=== PATIENT | female | born 1970 | race Hispanic/Latino ===

== ENCOUNTER 2019-12-17 15:06 | Outpatient (CLI) | payer OTHER, SELFPAY ==
--- NOTE | ~2019-12-17 | XR_ITS ---
XR cervical spine min 6V 12/17/2019 15:49 Indication: Cervicalgia. Chronic neck pain with worsening Procedure: 6 views of the cervical spine Comparison: No prior studies for comparison. Findings: Straightening of cervical lordosis. Vertebral body and disc heights are preserved. No preve rtebral soft tissue swelling. There are mild uncinate degenerative changes at multiple levels. Odonto id process within normal limits. No prevertebral soft tissue abnormality. No fracture or traumatic ma lalignment. Impression: 1: Mild cervical spondylosis. Reviewed, dictated and finalized at location A. LOADER MEAT Impression: 1: Mild cervical spondylosis.
== END 2019-12-17 15:07 | disposition home or self-care (01) ==
PROVIDERS: PCP Nurse Practitioner; Visit Provider Nurse Practitioner Family
DX: M47.892 Other spondylosis, cervical region (principal)
CPT/HCPCS: 72052

== ENCOUNTER 2021-06-22 12:14 | Outpatient (CLI) | payer OTHER, SELFPAY ==
--- NOTE | ~2021-06-22 | MR_ITS ---
EXAMINATION: MR cervical spine wo con DATE: 06/22/2021 13:45 INDICATION: Cervical radiculopathy. TECHNIQUE: Magnetic resonance imaging (MRI) of the cervical spine was performed without intravenous c ontrast. Sequences included sagittal T2-weighted FSE, sagittal STIR FSE, sagittal T1-weighted FSE, ax ial MERGE, and axial T2-weighted FSE. COMPARISON: None FINDINGS: There is 21 degrees levoscoliosis of cervicothoracic spine. Vertebral body heights are norm al. There is mildly decreased disc height at C4-C5 and moderately decreased disc height at C5-C6. The spinal cord signal intensity is normal. The following disc levels are specifically discussed: C2-C3: The disc does not extend beyond the endplate margin. There is no uncovertebral joint osteoarth ritis. There is severe bilateral facet joint osteoarthritis. There is no neural foraminal stenosis. T here is no central canal stenosis. C3-C4: The disc does not extend beyond the endplate margin. There is no uncovertebral joint osteoarth ritis. There is severe bilateral facet joint osteoarthritis. There is no neural foraminal stenosis. T here is no central canal stenosis. C4-C5: There is a central extrusion. There is mild right and moderate left uncovertebral joint osteoa rthritis. There is moderate right and severe left facet joint osteoarthritis. There is mild bilateral neural foraminal stenosis. There is mild central canal stenosis. C5-C6: There is a central extrusion. There is mild bilateral uncovertebral joint osteoarthritis. Ther e is severe bilateral facet joint osteoarthritis. There is mild bilateral neural foraminal stenosis. There is mild central canal stenosis with ventral indentation of the spinal cord. C6-C7: The disc does not extend beyond the endplate margin. There is mild left uncovertebral joint os teoarthritis. There is severe bilateral facet joint osteoarthritis. There is mild bilateral neural fo raminal stenosis. There is no central canal stenosis. C7-T1: There is a central protrusion. There is no uncovertebral joint osteoarthritis. There is modera te bilateral facet joint osteoarthritis. There is mild bilateral neural foraminal stenosis. There is no central canal stenosis. IMPRESSION: 1. Moderate cervical spondylosis. 2. Cervicothoracic levoscoliosis. Reviewed, dictated and finalized at location A.
--- NOTE | ~2021-06-22 | MR_ITS ---
EXAMINATION: MR lumbar spine wo con DATE: 06/22/2021 13:45 INDICATION: Lumbago. TECHNIQUE: Magnetic resonance imaging (MRI) of the lumbar spine was performed without intravenous con trast. Sequences included sagittal T2-weighted FSE, sagittal STIR FSE, sagittal T1-weighted FSE, and axial T2-weighted FSE. COMPARISON: Lumbar spine MRI 09/17/2019 FINDINGS: There is 23 degrees levoscoliosis of thoracolumbar spine. There are changes of anterior and posterior fusion procedures at L5-S1 with interbody devices and pedicle screws. Vertebral body heigh ts are normal. There is mildly decreased disc height at L2-L3 and L3-L4. The distal spinal cord signa l intensity is normal. The conus medullaris is at T12-L1. The following disc levels are specifically discussed: L1-L2: The disc does not extend beyond the endplate margin. There is severe bilateral facet joint ost eoarthritis. There is no neural foraminal stenosis. There is no central canal stenosis. L2-L3: The disc is bulging. There is severe bilateral facet joint osteoarthritis. There is mild bilat eral neural foraminal stenosis. There is mild central canal stenosis. L3-L4: The disc is bulging. There is severe bilateral facet joint osteoarthritis. There is mild bilat eral neural foraminal stenosis. There is mild central canal stenosis. L4-L5: There is a left foraminal protrusion. There is moderate bilateral facet joint hypertrophy. The re is mild left neural foraminal stenosis. There is no central canal stenosis. L5-S1: There is moderate left facet joint hypertrophy. There is mild left neural foraminal stenosis. There is no central canal stenosis. IMPRESSION: 1. Mild lumbar spondylosis, stable from 09/17/2019. 2. Anterior and posterior fusion procedures at L5-S1. 3. Thoracolumbar levoscoliosis. Reviewed, dictated and finalized at location A.
--- NOTE | ~2021-06-22 | MR_ITS ---
EXAMINATION: MR thoracic spine wo con DATE: 06/22/2021 13:45 INDICATION: Back pain. Neck pain. TECHNIQUE: Magnetic resonance imaging (MRI) of the thoracic spine was performed without intravenous c ontrast. Sagittal localizer T1-weighted FSE of the cervical spine was obtained. Thoracic spine sequen nellie included sagittal T2-weighted FSE, sagittal T1-weighted FSE, sagittal STIR FSE, and axial T2-weig hted FSE. COMPARISON: Thoracic spine MRI 12/10/2018 FINDINGS: There is 27 degrees dextroscoliosis of thoracic spine. There is levoscoliosis of cervicotho racic spine and thoracolumbar spine. Vertebral body heights are normal. There is mildly decreased dis c height at T3-T4, T4-T5, T6-T7, T7-T8, T8-T9, and T9-T10. The discs do not extend beyond the endplat e margins. There is multilevel mild facet joint osteoarthritis. No neural foraminal stenosis or centr al canal stenosis. The spinal cord signal intensity is normal. IMPRESSION: 1. Stable mild thoracic spondylosis. 2. Scoliosis. Reviewed, dictated and finalized at location A.
== END 2021-06-22 12:15 ==
LOC: MICIMG 12:15
PROVIDERS: PCP Nurse Practitioner; Visit Provider Nurse Practitioner Family
DX: M47.814 Spondylosis without myelopathy or radiculopathy, thoracic region (principal); M41.9 Scoliosis, unspecified; M47.817 Spondylosis without myelopathy or radiculopathy, lumbosacral region; M48.07 Spinal stenosis, lumbosacral region; Z98.1 Arthrodesis status; M47.813 Spondylosis without myelopathy or radiculopathy, cervicothoracic region; M48.03 Spinal stenosis, cervicothoracic region
CPT/HCPCS: 72141; 72146; 72148

== ENCOUNTER 2021-10-02 01:14 | Emergency (ER) | payer OTHER, SELFPAY ==
[2021-10-02] VITALS (19 sets, daily range): BP systolic 92–188; BP diastolic 48–107; PULSE 43–64; RESP 8–22; TEMP 36.6; O2SAT 95–100
--- NOTE | ~2021-10-02 | XR_ITS ---
EXAMINATION: XR chest 2V DATE: 10/02/2021 02:07 INDICATION: Midsternal chest pain TECHNIQUE: AP and lateral views of the chest are obtained. COMPARISON: 09/15/2019 FINDINGS: The lungs are free of acute opacities. There is no pleural effusion or pneumothorax. The ca rdiomediastinal silhouette is normal. There is S-shaped curvature of the thoracic spine. IMPRESSION: 1. No acute cardiopulmonary abnormality. Reviewed, dictated and finalized at location A. TER HAND
--- NOTE | ~2021-10-02 | CT_ITS ---
EXAMINATION: CT abdomen pelvis w con INDICATION: Epigastric abdominal pain TECHNIQUE: Computed tomographic images of the abdomen and pelvis were obtained after the administrati on of 100 cc of Omnipaque 350 intravenous contrast. The dose-length product (DLP) was 657.17 mGy-cm. Automated exposure control and iterative reconstruction technique were employed. COMPARISON: None available FINDINGS: Minimal dependent atelectasis is present in the lung bases. The heart size is normal. The l iver, spleen, pancreas, and adrenal glands are normal. There appears to be mild wall thickening of th e gallbladder with subtle pericholecystic fat stranding. Hypoattenuating lesions in the kidneys, obey uring up to 2 mm on the right, are too small to characterize but likely represent cysts. No pathologi ale enlarged abdominal or pelvic lymph nodes are identified. There is no free intraperitoneal gas o r evidence of bowel obstruction. The appendix is normal. Colonic diverticulosis is present without ev idence of diverticulitis. There is a fat-containing umbilical hernia. There are changes of fusion pro cedure at L5-S1. Thoracolumbar levoscoliosis is noted. IMPRESSION: 1. CT findings suggestive of early cholecystitis. Reviewed, dictated and finalized at location A. LE END TENONER OPERATOR
--- NOTE | 2021-10-02 01:22 | ECG_ITS ---
Measurements Intervals [place] Rate: 57 P: 32 VT: 187 QRS: 76 QRSD: 89 T: 71 QT: 407 QTc: 399 Interpretive Statements SINUS BRADYCARDIA BASELINE ARTIFACT- II, III, AVR, AVF, V1, V3-V6 BORDERLINE ECG Electronically Signed On 10-02-2021 7:15:45 RESIDENT BUYER by Cornell Vasquez D.O.
[2021-10-02] MEDS: ONDANSETRON INJ 4 MG/2 ML VIAL IV PUSH (01:38)
[2021-10-02 01:39] LABS: Basophils Percent Auto 0.4 % (0.2-1.2); Eosinophils Absolute Auto 0.2 K/mm3 (0-0.3); Eosinophils Percent Auto 2.8 % (0-4.4); Hematocrit 42.6 % (37.0-47.0); Hemoglobin 14.3 g/dL (12.0-15.0); Immature Granulocyte Absolute 0.02 K/mm3 (0.00-0.031); Immature Granulocyte Percent A 0.3 % (0-0.5); Lymphocytes Absolute Auto 3.02 K/mm3 (0.9-3.2); Mean Corpuscular HGB Conc 33.6 g/dl (32-36); Mean Corpuscular Hemoglobin 29.5 pg (26-34); Mean Platelet Volume 10.5 fl (7.4-10.4); Monocytes Absolute Auto 0.7 K/mm3 (0.1-0.6); Monocytes Percent Auto 9.6 % (2.6-8.5); Neutrophils Absolute Auto 3.2 K/mm3 (1.3-6.7); Neutrophils Percent Auto 44.9 % (45.5-73.1); Platelet Count Result 272 k/mm3 (150-375); Red Blood Count 4.84 M/mm3 (4.2-5.4); Red Cell Distribution Width 12.3 % (11.5-14.5); White Blood Count 7.2 K/mm3 (4.5-10.0)
[2021-10-02] MEDS: MORPHINE SULFATE (*CRX) 4 MG/ML INJ IV PUSH (01:39)
[2021-10-02] MEDS: ASPIRIN 81 MG CHEWABLE TABLET 324 MG PO (01:42)
[2021-10-02 01:49] LABS: Anion Gap 7 mmol/L (8-16); Blood Urea Nitrogen 20 mg/dL (7-17); Calcium 9.9 mg/dL (8.4-10.2); Carbon Dioxide 30 mmol/L (22-30); Chloride 101 mmol/L (98-107); Estimated CRCL calculation 83 ml/min; Estimated Glomerular Filt Rate > 60; Glucose 111 mg/dL (65-110); Potassium 3.9 mmol/L (3.4-5.0); Sodium 138 mmol/L (137-145)
[2021-10-02 01:51] LABS: INR 0.9; Partial Thromboplastin Time 26.4 SECONDS (22.3-36.8); Prothrombin Time 12.1 Seconds (11.1-14.7)
--- NOTE | 2021-10-02 01:59 | ED.GENADULT ---
HPI - General Adult General Chief complaint: Chest Pain Stated complaint: chest pain x 1 hour Time Seen by Provider: 10/02/21 01:23 History of Present Illness HPI narrative: Patient 50-year-old female presents the emergency department with chief complaint of chest pain. Patient reports that she was sleeping woke up and had pain in the low chest epigastric region. Patient reports the pain is sharp reports not improved by anything reports no diaphoresis reports radiates to her back patient denies shortness of breath reports that this evening she ate some chicken reports no prior history of cardiac disease reports she had a stress test about 5 years ago the patient states that she still has her gallbladder. Related Data Home Medications Medication Instructions Recorded Confirmed naltrexone 50 mg tablet See Rx Instructions PO DAILY 08/25/21 10/02/21 Allergies Allergy/AdvReac Type Severity Reaction Status Date / Time No Known Allergies Allergy Unknown Verified 10/02/21 05:31 Review of Systems Review of Systems: A 10 system review of systems was completed on the patient and is negative except for what is stated in the HPI. Nursing and ancillary documentation was reviewed. [facility] Past Medical History Medical History ADD (attention deficit disorder) Anxiety Intermittent palpitations Scoliosis of thoracolumbar region due to degenerative disease of spine in adult Surgical History Surgical History History of hysterectomy History of lumbar fusion Hx of laminectomy Family History Family History Father Hypertension Heart disease Mother Hypertension Heart disease Social History Social History Smoking status: Never smoker Smoking end date: 11/19/05 Alcohol intake: never Exam Narrative: GENERAL: Well-appearing, well-nourished, and in no acute distress. HEAD: Normocephalic, atraumatic. EYES: PERRLA and EOMI. ENT: Nares clear, no rhinorrhea or epistaxis. Mucous membranes moist. NECK: Supple. CHEST: Clear to auscultation. No respiratory distress. HEART: Regular rate and rhythm. No murmur heard. Normal peripheral pulses. ABDOMEN: Soft, tender to palpation in the epigastric region, nondistended, normal active bowel sounds. EXTREMITIES: Normal range of motion. No edema. SKIN: Warm, dry, no rash. NEURO: No focal deficits. Alert and oriented x3. PSYCH: Normal mood and affect. Course Vital Signs Vital signs: Vital Signs Temperature 36.6 C 10/02/21 01:23 Pulse Rate 64 10/02/21 01:23 Respiratory Rate 20 10/02/21 01:23 Blood Pressure 188/88 H 10/02/21 01:23 Pulse Oximetry 100 10/02/21 01:23 Temperature 36.6 C 10/02/21 01:23 Pulse Rate 43 L 10/02/21 04:15 Respiratory Rate 11 L 10/02/21 04:15 Blood Pressure 92/48 L 10/02/21 03:01 Pulse Oximetry 97 10/02/21 04:15 Medical Decision Making Vital Signs Vital Signs: Vital Signs Temperature 36.6 C 10/02/21 01:23 Pulse Rate 64 10/02/21 01:23 Respiratory Rate 20 10/02/21 01:23 Blood Pressure 188/88 H 10/02/21 01:23 Pulse Oximetry 100 10/02/21 01:23 Temperature 36.6 C 10/02/21 01:23 Pulse Rate 43 L 10/02/21 04:15 Respiratory Rate 11 L 10/02/21 04:15 Blood Pressure 92/48 L 10/02/21 03:01 Pulse Oximetry 97 10/02/21 04:15 Lab Data Result diagrams: 10/02/21 01:34 10/02/21 01:34 Labs: Lab Results 10/02/21 10/02/21 10/02/21 Range/Units 01:33 01:34 01:34 WBC 7.2 (4.5-10.0) K/mm3 RBC 4.84 (4.2-5.4) M/mm3 Hgb 14.3 (12.0-15.0) g/dL Hct 42.6 (37.0-47.0) % MCV 88.0 (80-100) fl MCH 29.5 (26-34) pg MCHC 33.6 (32-36) g/dl RDW 12.3 (11.5-14.5) % Plt Count 272 (150-375) k/mm3
[2021-10-02 02:01] LABS: Troponin I < 0.012 ng/mL (0.000-0.034)
[2021-10-02] MEDS: HYDROmorphone HCL INJ (*CRX) 1 MG/ML SYR IV PUSH (02:13)
[2021-10-02 03:01] LABS: Alanine Aminotransferase 28 U/L (4-35); Albumin Level 4.6 g/dL (3.5-5.1); Alkaline Phosphatase 55 U/L (38-126); Aspartate Amino Transferase 28 U/L (14-36); Bilirubin,Total 0.3 mg/dL (0.2-1.3); Lipase 186 U/L (23-300)
[2021-10-02 04:44] LABS: Troponin I < 0.012 ng/mL (0.000-0.034)
== END 2021-10-02 06:14 | disposition home or self-care (01) ==
PROVIDERS: Emergency Provider Emergency Medicine; PCP Internal Medicine
DX: K80.40 Calculus of bile duct with cholecystitis, unspecified, without obstruction (principal); R07.89 Other chest pain; F41.9 Anxiety disorder, unspecified; Z90.710 Acquired absence of both cervix and uterus; Z98.1 Arthrodesis status
CPT/HCPCS: 36415; 71046; 74177; 76705; 80048; 80076; 83690; 84484; 85025; 85610; 85730; 93005; 96374; 96375; 99284; A9270; J1170; J2270; J2405; Q9967

== ENCOUNTER 2021-10-02 07:31 | Outpatient (CLI) | payer OTHER, SELFPAY ==
--- NOTE | ~2021-10-02 | US_ITS ---
EXAMINATION: US right upper quadrant DATE: 10/02/2021 07:59 INDICATION: Right upper quadrant pain, cholecystitis TECHNIQUE: Multiple grayscale and Doppler ultrasound images of the abdomen were obtained. COMPARISON: CT from yesterday FINDINGS: The head, body, and tail of the pancreas are normal. The liver is normal with normal echoge nicity and echotexture. No surface nodularity. Normal hepatopetal flow in the main portal vein. Una lithiasis is noted. Mild gallbladder wall thickening is noted. No definite pericholecystic fluid is i dentified. The normal common bile duct measures 6 mm. Sonographic Jackson sign is positive. IMPRESSION: 1. Sonographic findings suspicious for acute cholecystitis. Consider nuclear hepatobiliary scan. Reviewed, dictated and finalized at location A. STANT CHIEF NURSING OFFICER IMPRESSION: 1. Sonographic findings suspicious for acute cholecystitis. Consider nuclear he patobiliary scan.
== END 2021-10-02 07:32 | disposition home or self-care (01) ==
LOC: ANHIMG 07:34
PROVIDERS: PCP Internal Medicine; Visit Provider Surgery
DX: K81.0 Acute cholecystitis (principal)
CPT/HCPCS: 76705

== ENCOUNTER 2021-10-03 12:18 | Outpatient (CLI) | payer OTHER, SELFPAY ==
[2021-10-03 12:44] LABS: EDCOVIDSCREEN Negative (Negative)
== END 2021-10-03 12:19 | disposition home or self-care (01) ==
LOC: ANHSURGERY 12:20
PROVIDERS: PCP Internal Medicine; Visit Provider Surgery
DX: Z01.812 Encounter for preprocedural laboratory examination (principal); Z20.822 Contact with and (suspected) exposure to COVID-19
CPT/HCPCS: 87426; C9803

== ENCOUNTER 2021-10-04 01:53 | Day surgery (SDC) | payer OTHER, SELFPAY ==
[2021-10-03 13:26] VITALS: BMI 28.3
--- NOTE | 2021-10-03 13:39 | PC.NURSE ---
Report to the Outpatient Waiting Room, entrance under the green pavilion located off [facility], at time 1030 on date 10/04/21. OR Time: 1230. - You and your visitor will be asked a series of questions to screen for COVID 19 for your protection. - A mask is required within the hospital. - Only one visitor is allowed at this time. Patient visitors will be guided where to wait when not with patient. Preoperative COVID Testing Requirements: No COVID Test needed if: (proof is required; if not received patient will have Rapid Test prior to entry) - Patient has received COVID Vaccine at least 14 days prior to procedure date or - Patient has positive COVID test result within last 90 days of surgery date. COVID Test needed if above criteria is not met If not COVID vaccinated a COVID test must be conducted within 72 hours of surgery and patient is asked to isolate self from time of testing until procedure. You will go to the [employer] [facility] for your COVID testing. The [employer] [facility] is located at the corner of [address] [facility]. You will only be called if COVID results are positive and your surgeon may reschedule your elective surgery date. Patients may have clear liquids (water, carbonated beverages, clear teas, apple juice) until 3 hours prior to surgery with a maximum of 20 ounces. - No food from midnight until time of surgery - Infants may have breast milk until 4 hours before surgery, formula 6 hours prior to surgery. - Children will be allowed to drink immediately following surgery. If applicable, please bring a bottle or sippy cup to assist with drinking. Juice, water, soda, and popsicles are readily available. For infants on formula, please bring formula the day of surgery. Pacifiers are allowed. Take the following medications with a SIP of water the morning of surgery: XANAX (IF NEEDED), PAIN PILL (IF NEEDED), CIPRO, ADDERALL, WELLBUTRIN Medications to discontinue per physician: IBUPROFEN Date to take last dose: PER DR. GAITAN Please no make-up, nail cayman islander, hairspray, perfume, deodorant, or body powder the day of surgery. No jewelry (including any body piercings) or valuables the day of surgery, leave them at home. Please take a shower or bath the night before, or the morning of, surgery with an antibacterial soap. Wear comfortable, loose fitting clothing. Children are encouraged to wear pajamas. - Jewelry must be removed prior to entering the operating room. Rings and piercings that are not removed may be cut off. - The hospital will not accept responsibility for valuables. - Please leave all valuables, including medications, at home the day of surgery. If you are going home after surgery, a licensed commercial driver must drive you home. - NO public transportation without another adult. - We recommend that an adult stay with you for 24 hours following discharge. - We also recommend that you do not drive, make important decision, drink alcoholic beverages, or take any drugs that were not prescribed by your health care provider for at least 24 hours after your discharge time. For Pediatric surgeries, we recommend two adults accompany the child home (only one inside the building at this time). Follow any additional instructions given to you from your surgeon. Telephone instructions given to JOSSUE MERAZ and asked if any additional questions and then verbalized understanding. Patient advised to call surgeon office or pre surgery nurse liaison [phone] if any additional questions.
[2021-10-04] VITALS (8 sets, daily range): BP systolic 124–170; BP diastolic 62–87; PULSE 61–82; RESP 12–18; TEMP 35.9–36.4; O2SAT 98–100
--- NOTE | 2021-10-04 11:09 | WPDANESEPPF ---
Anes - Initial Pre Proc Eval Procedure: Operation Date: 10/04/21 12:30 Proposed Procedures p Laparoscopic Cholecystectomy, Possible Intra Operative Cholangiogram, Possible Open - Emery Ordonez MD Date/Time: 10/04/21 11:09 Surgeon: Emery Ordonez MD Pre Op Diagnosis: chronic cholecystitis with cholelithiasis Patient Data Age: 50 Gender: F Height: 1.63 m Weight: 77 kg Allergies Allergy/AdvReac Type Severity Reaction Status Date / Time No Known Allergies Allergy Unknown Verified 10/04/21 11:07 Home Medications Medication Instructions Recorded Confirmed Type cyclobenzaprine 10 mg tablet 10 mg PO .QD PRN #30 tablet 06/14/20 10/04/21 Rx bupropion HCl 100 mg tablet,12 hr See Rx Instructions PO DAILY #360 03/22/21 10/04/21 Rx sustained-release tablet ibuprofen 800 mg tablet 800 mg PO .Q8-12h PRN #30 tablet 08/25/21 10/04/21 Rx alprazolam 0.5 mg tablet 0.5 mg PO DAILY PRN #30 tablet 09/13/21 10/04/21 Rx dextroamphetamine-amphetamine 15 15 mg PO BID #60 tablet 09/13/21 10/04/21 Rx mg tablet ciprofloxacin HCl 500 mg PO BID 10/03/21 10/04/21 History hydrocodone-acetaminophen 1 tablet PO Q6H PRN 10/03/21 10/04/21 History Patient hx anesthesia problems: none Family hx anesthesia problems: none Results Review: All pre-operative results and documents have been reviewed as part of the pre-operative evaluation. [facility] Past Medical History Medical History ADD (attention deficit disorder) Anxiety Intermittent palpitations Scoliosis of thoracolumbar region due to degenerative disease of spine in adult Surgical History Surgical History H/O discectomy H/O tubal ligation History of hysterectomy History of lumbar fusion Hx of laminectomy Family History Family History Father Hypertension Heart disease Cerebrovascular accident Mother Hypertension Heart disease COPD (chronic obstructive pulmonary disease) Social History Social History Smoking packs per day: 0.5 Smoking cigarettes per day: 10.0 Years smoked: 15 Smoking pack-years: 7.50 Smoking status: Former smoker Tobacco type: cigarettes Smoking end date: 11/19/06 Alcohol intake: current Drinks per week: 3 Substance use: never Substance use type: does not use Living arrangements: with family Spiritual care concerns: No Anes - Eval Final PreProcedure Day of Procedure 10/04/21 11:09 Patient weight: overweight Heart: regular rate and rhythm Lungs: clear to auscultation Airway: Mallampati scale class II (has braces) Neurological: alert and oriented Last oral intake: >/= 8 hours ASA classification: II Emergent: no Anesthetic plan: proceed Anesthesia type and monitoring: general ETT and standard monitoring Results Review: All pre-operative results and documents have been reviewed as part of the pre-operative evaluation. Informed Consent: The patient's anesthetic plan and its attendant risks and benefits were discussed with the patient/family/POA. Questions were solicited and answers provided to the satisfaction of the patient/family/POA.
[2021-10-04] MEDS: ACETAMINOPHEN 500 MG TABLET 1000 MG PO (11:14)
[2021-10-04] MEDS: LACTATED RINGERS 1,000 ML 30 ML IV CONT ×2 (11:27→13:48)
[2021-10-04] MEDS: KETOROLAC 15 MG/ML VIAL (*BKC) IV PUSH (11:28)
--- NOTE | 2021-10-04 11:57 | WPDHPUPDATE1 ---
History and Physical Update Update Date/Time: 10/04/21 11:57 History and Physical has been reviewed, including an updated exam of the patient. There are NO changes in the patient's condition. Risks, benefits, and alternatives have been discussed and questions answered. Patient agrees to proceed with procedure.
[2021-10-04 12:07] LABS: Amylase 60 U/L (30-110)
[2021-10-04] MEDS: ceFAZolin 2 GM/D5W 50 ML 2 GM/50 ML BAG IVPB (12:08)
[2021-10-04] MEDS: LIDO 2%/EPINEPHRINE 1:100,000 20 ML VIAL INFILTRATE (13:36)
--- NOTE | 2021-10-04 13:52 | W.PM.PROC2 ---
Procedure Note - Detailed Date of Procedure 10/04/21 Pre-op Diagnosis chronic cholecystitis with cholelithiasis (suspected acute exacerbation) Post-op Diagnosis same Procedure Performed Laproscopic Cholecystectomy Surgeon Emery Ordnoez MD Hazmat Tanker Driver Ragini [email or web address] temporary administrative assistant Anesthesia general Indications Patient risks sleep presented to the ED with new onset right upper quadrant abdominal pain. This radiated to her back. See H&P for further details. Ultrasound showed definite stones, therefore she was offered surgical intervention. Findings Definite significant adhesions that were of a chronic nature covering most the gallbladder. Definite palpable stones upon removal of the gallbladder. No apparent acute inflammation of the gallbladder that I can see. Description of Procedure Patient was seen preoperatively in the holding area and risks, benefits and alternatives confirmed. Patient was taken to the operating room and general anesthesia was induced. A time out was then preformed with the surgery team confirming patient and site of surgery. The abdomen was prepped and draped in the usual sterile fashion. Incision was made approximately 4 fingerbreadths below the costal margin in the left upper quadrant of the abdomen with an 11 blade knife. We placed the patient's head slightly up an OG tube was in place to low intermittent suction. Because of her previous surgery in the area of the umbilicus I decided to try a entry with a water drop test and a Veress needle. Placing 2 towel clips on the skin of this incision we elevated the skin and the abdomen and then using a 3 cc syringe I checked a water drop test through the Veress needle after popping it through the different layers of muscle in this area. Once there was good flow of the water down the needle without resistance, we connected the CO2 gas. This gradually went up fairly quickly to 12 mmHg so I pushed in one more and felt a slight pop and then our pressure dropped to 5 mm and the abdomen insufflated nicely. Once we were up to a 14 mm Hg pressure of CO2 gas, I removed the Veress needle and the gas and we placed the 5 mm trocar over the 0 degree 5 mm laparoscope, I then under direct vision quickly twisted and turned the port into the abdomen under direct vision and we popped into the pneumoperitoneum without difficulty. We then held the the port tight, removed the inner cannula/trocar and replaced the scope through this port. We were just barely into the fascia and we could see, so I rotated the port in better then we were at first and we connected this to 40 liters/minute flow of CO2 gas to therefore maintain the pneumoperitoneum. First under low flow and then under high flow the abdomen was insufflated with carbon dioxide never exceeding a pressure of 14. Two more 5 mm trocars and one standard 12 mm trocar were then introduced under direct vision. The following trocars were introduced under direct vision: a 12 mm in the periumbilical area just to the right of midline and two 5 mm trocars along the right costal margin laterally in the subcostal area. There were significant omental adhesions to the underside of the gallbladder. These were taken down with blunt and sharp dissection using some Bovie cautery for hemostasis. We were able to dissect this completely away from the neck of the gallbladder. I then carefully used the L-shaped cautery and the [place] dissector to dissect out the triangle of [place]. I then was able to dissect out both the cystic duct and cystic artery and identify a window of safety. The gall bladder was grasped and the cystic duct and artery were dissected free and clipped with an 5 mm endo-clip woodworking shop laborer. The cystic duct and artery were clipped with use of 2 clips on the patient's side 1 on the gallbladder side utilizing a 5 mm endoclip-woodworking shop laborer. The cystic duct was then transected. The cystic artery was also transected at this point. The gall bladder was removed using
== END 2021-10-04 15:33 | disposition home or self-care (01) ==
PROVIDERS: PCP Internal Medicine; Visit Provider Surgery
PROC: 0FT44ZZ Resection of Gallbladder, Percutaneous Endoscopic Approach (ICD-10-PCS; CPT 47562; principal; 2021-10-04 12:30)
DX: K80.10 Calculus of gallbladder with chronic cholecystitis without obstruction (principal); F98.8 Other specified behavioral and emotional disorders with onset usually occurring in childhood and adolescence; F41.9 Anxiety disorder, unspecified; Z87.891 Personal history of nicotine dependence
CPT/HCPCS: 47562; 36415; 82150; 87426; 88304; A9270; C9803; J0690; J1100; J1170; J1885; J2250; J2405; J2704; J2710; J3010; J7030; J7120; Q9966

== ENCOUNTER 2022-05-19 00:58 | Day surgery (SDC) | payer OTHER, SELFPAY ==
--- NOTE | 2022-05-13 11:51 | PM.IMHP ---
H&P: HPI History of Present Illness Date/Time: 05/13/22 11:51 Chief Complaint: Stress incontinence Narrative: bothersome stress incontinence. Presents for surgical treatment Review of Systems Review of Systems: All systems reviewed & are unremarkable except as noted in HPI and below PMFSH Past Medical History Medical History ADD (attention deficit disorder) Anxiety Intermittent palpitations Scoliosis of thoracolumbar region due to degenerative disease of spine in adult Surgical History Surgical History H/O discectomy H/O tubal ligation History of hysterectomy History of lumbar fusion Hx laparoscopic cholecystectomy 10/04/21 Hx of laminectomy Family History Family History Father Hypertension Heart disease Cerebrovascular accident Mother Hypertension Heart disease COPD (chronic obstructive pulmonary disease) Social History Social History Smoking packs per day: 0.5 Smoking cigarettes per day: 10.0 Years smoked: 15 Smoking pack-years: 7.50 Smoking status: Never smoker Tobacco type: cigarettes Smoking end date: 11/19/06 Alcohol intake: current Drinks per week: 3 Substance use: never Substance use type: does not use Gender identity (if verbalized by the patient): Female Sexual Orientation (if Verbalized by the Patient): Straight or Heterosexual Spiritual care concerns: No Meds Home Medications and Allergies Home Medications Medication Instructions Recorded Confirmed Type bupropion HCl 100 mg tablet,12 hr See Rx Instructions PO DAILY #360 03/22/21 04/11/22 Rx sustained-release tabs ibuprofen 800 mg tablet 800 mg PO .Q8-12h PRN fever or 12/08/21 04/11/22 Rx pain #30 tabs naltrexone 50 mg tablet 3 mg PO DAILY 12/08/21 04/11/22 History cyclobenzaprine 10 mg tablet 10 mg PO .QD PRN muscle spasm #30 12/26/21 04/11/22 Rx tabs alprazolam 0.5 mg tablet 0.5 mg PO DAILY PRN anxiety #30 01/30/22 04/11/22 Rx tabs dextroamphetamine-amphetamine 15 15 mg PO BID #60 tabs 05/01/22 Rx mg tablet Allergies Allergy/AdvReac Type Severity Reaction Status Date / Time No Known Allergies Allergy Unknown Verified 04/11/22 08:39 Exam Narrative: alert and oriented x3 normal breathing urethral hypermobility noted Assessment and Plan Assessment and plan (1) CHRISTEN (stress urinary incontinence, female): Code(s): N39.3 - Stress incontinence (female) (male) Status: Acute Assessment and Plan: urethral sling. Understands risks of bleeding, infection, damage surrounding organs, damage to the urine tract, lack of efficacy, voiding dysfunction including incontinence and retention, mesh exposure, need for repeat procedures. She agrees to proceed
[2022-05-16 15:11] VITALS: BMI 29.2
--- NOTE | 2022-05-16 15:19 | SUR.PREOP ---
Report to the Outpatient Waiting Room, entrance under the green pavilion located off [facility], at time 0600_ on date 05/19/22 OR Time: _0730 . - You and your visitor will be asked a series of questions to screen for COVID 19 for your protection. - Only one visitor is allowed at this time. - The patient visitor is requested to leave or wait in car when not with patient. - A mask is required within the hospital. Patients may have clear liquids (water, carbonated beverages, clear teas, apple juice) until 3 hours prior to surgery with a maximum of 20 ounces. - No food from midnight until time of surgery - Infants may have breast milk until 4 hours before surgery, infant formula 6 hours prior to surgery. - Children will be allowed to drink immediately following surgery. If applicable, please bring a bottle or sippy cup to assist with drinking. Juice, water, soda, and popsicles are readily available. For infants on formula, please bring formula the day of surgery. Pacifiers are allowed. Take the following medications with a SIP of water the morning of surgery: _alprazolam,bupropion,dextroamphetamine-amphetamine Medications to discontinue per physician ____n/a Date to take last dose____n/a Please no make-up, nail bulgarian, hairspray, perfume, deodorant, or body powder the day of surgery. No jewelry (including any body piercings) or valuables the day of surgery, leave them at home. Please take a shower or bath the night before, or the morning of, surgery with an antibacterial soap. Wear comfortable, loose fitting clothing. Children are encouraged to wear pajamas. - Jewelry must be removed prior to entering the operating room. Rings and piercings that are not removed may be cut off. - The hospital will not accept responsibility for valuables. - Please leave all valuables, including medications, at home the day of surgery. If you are going home after surgery, a licensed local company hazmat driver must drive you home. - NO public transportation without another adult. - We recommend that an adult stay with you for 24 hours following discharge. - We also recommend that you do not drive, make important decision, drink alcoholic beverages, or take any drugs that were not prescribed by your health care provider for at least 24 hours after your discharge time. For Pediatric surgeries, we recommend two adults accompany the child home (only one inside the building at this time). Follow any additional instructions given to you from your surgeon. If you or anyone in your household have experienced Covid symptoms in the past week, please notify your surgeon or the nurse liaison at the phone number below for possible testing. Telephone instructions given to _teresita stratton and asked if any additional questions and then verbalized understanding. Patient advised to call surgeon office or pre surgery nurse liaison [phone] if any additional questions.
[2022-05-19 06:16] VITALS: BP 138/83; PULSE 63; RESP 16; TEMP 36.5; O2SAT 99
[2022-05-19] MEDS: LACTATED RINGERS 1,000 ML 30 ML IV CONT (07:00)
--- NOTE | 2022-05-19 07:05 | WPDANESEPPF ---
Anes - Initial Pre Proc Eval Procedure: Operation Date: 05/19/22 07:30 Proposed Procedures p Urethral Sling - Rashi Lopez MD Date/Time: 05/19/22 07:05 Surgeon: Rashi Lopez MD Pre Op Diagnosis: stress incontinence Patient Data Age: 51 Gender: F Height: 1.63 m Weight: 70.85 kg Last Vital Signs Temp 36.5 C 05/19/22 06:16 Pulse 63 05/19/22 06:16 Resp 16 05/19/22 06:16 BP 138/83 05/19/22 06:16 Pulse Ox 99 05/19/22 06:16 O2 Del Method Room Air 05/19/22 06:16 Allergies Allergy/AdvReac Type Severity Reaction Status Date / Time No Known Allergies Allergy Unknown Verified 05/19/22 06:22 Home Medications Medication Instructions Recorded Confirmed Type bupropion HCl 100 mg tablet,12 hr See Rx Instructions PO DAILY #360 03/22/21 05/19/22 Rx sustained-release tabs ibuprofen 800 mg tablet 800 mg PO .Q8-12h PRN fever or 12/08/21 05/19/22 Rx pain #30 tabs naltrexone 50 mg tablet 3 mg PO DAILY 12/08/21 05/19/22 History dextroamphetamine-amphetamine 15 15 mg PO BID #60 tabs 05/01/22 05/19/22 Rx mg tablet alprazolam 0.5 mg tablet 0.5 mg PO PRN PRN anxiety 05/16/22 05/19/22 History cyclobenzaprine 10 mg tablet 10 mg PO PRN PRN muscle spasm 05/16/22 05/19/22 History Patient hx anesthesia problems: none Family hx anesthesia problems: none Results Review: All pre-operative results and documents have been reviewed as part of the pre-operative evaluation. [facility] Past Medical History Medical History ADD (attention deficit disorder) Anxiety Intermittent palpitations Scoliosis of thoracolumbar region due to degenerative disease of spine in adult Surgical History Surgical History H/O discectomy H/O tubal ligation History of hysterectomy History of lumbar fusion Hx laparoscopic cholecystectomy 10/04/21 Hx of laminectomy Family History Family History Father Hypertension Heart disease Cerebrovascular accident Mother Hypertension Heart disease COPD (chronic obstructive pulmonary disease) Social History Social History Smoking packs per day: 0.5 Smoking cigarettes per day: 10.0 Years smoked: 15 Smoking pack-years: 7.50 Smoking status: Former smoker Tobacco type: cigarettes Smoking end date: 11/19/05 Additional smoking assessment comments: 1/2 ppd x 12 years Alcohol intake: current Drinks per week: 3 Alcohol use details: rarely once a month Substance use: never Substance use type: does not use Living arrangements: with family Gender identity (if verbalized by the patient): Female Sexual Orientation (if Verbalized by the Patient): Straight or Heterosexual Spiritual care concerns: No Anes - Eval Final PreProcedure Day of Procedure 05/19/22 07:05 Patient weight: overweight Heart: regular rate and rhythm Lungs: clear to auscultation Airway: Mallampati scale class II Neurological: alert and oriented Last oral intake: >/= 8 hours ASA classification: III Emergent: no Anesthetic plan: proceed Anesthesia type and monitoring: general GIVS and standard monitoring Results Review: All pre-operative results and documents have been reviewed as part of the pre-operative evaluation. Informed Consent: The patient's anesthetic plan and its attendant risks and benefits were discussed with the patient/family/POA. Questions were solicited and answers provided to the satisfaction of the patient/family/POA.
--- NOTE | 2022-05-19 07:13 | WPDHPUPDATE1 ---
History and Physical Update Update Date/Time: 05/19/22 07:13 History and Physical has been reviewed, including an updated exam of the patient. There are NO changes in the patient's condition. Risks, benefits, and alternatives have been discussed and questions answered. Patient agrees to proceed with procedure.
[2022-05-19] MEDS: ceFAZolin 2 GM/D5W 50 ML 2 GM/50 ML BAG IVPB (07:26)
[2022-05-19] MEDS: LIDO 1%/EPINEPHRINE/PF 1:200,000 30 ML VIAL 20 ML XX (07:42)
[2022-05-19] MEDS: KETOROLAC 15 MG/ML VIAL (*BKC) IV PUSH (07:46)
[2022-05-19 08:08] VITALS: BP 119/76; PULSE 77; RESP 14; O2SAT 98
--- NOTE | 2022-05-19 08:15 | W.PM.PROC2 ---
Procedure Note - Detailed Date of Procedure 05/19/22 Pre-op Diagnosis stress incontinence Post-op Diagnosis Same Procedure Performed mid urethral sling cystoscopy Surgeon Rashi Lopez MD Indications This is a female with confirm stress urinary incontinence. She desires surgical correction. She understands the risks of bleeding, infection, injury to the urinary tract, vaginal mesh extrusion, urinary tract mesh erosion, obstructive voiding requiring a secondary procedure, hip and leg pain, dyspareunia, inability to improve overactive bladder symptoms. She agrees to proceed. Description of Procedure She was correctly identified. Informed consent obtained. She was brought the operating room. She was given appropriate anesthesia. She was given appropriate perioperative antibiotics. A time-out performed. I marked out the site of the inner thigh incisions. I anesthetized the skin and made those incisions. I anesthetized the anterior vaginal wall over the mid urethra. I made a 1 cm incision. I dissected out laterally taking great care not to injure the refilled vaginal wall. I passed the helical trocars. First on the left. Then on the right. I did this from the thigh incision towards the vaginal incision. The sling was connected to the trocars and brought out through the thigh incision. I tensioned the sling appropriately. I cut and the plastic sheaths. I then closed the incision with 2 0 Vicryl. On cystoscopy there is no tumors or surgical artifact. There was no surgical artifact in the urethra. I cut the excess sling material. Close incisions with glue. She was awakened and transferred to the PACU in stable condition. Implants Urethral sling Drains No Packing No Pathology None sent Complications No immediate complications Condition Stable Disposition PACU
[2022-05-19 08:35] VITALS: BP 115/48; PULSE 56; RESP 14; O2SAT 98
[2022-05-19 08:50] VITALS: BP 114/64; PULSE 54; RESP 14
[2022-05-19 09:10] VITALS: BP 132/66; PULSE 50; RESP 14
== END 2022-05-19 09:30 | disposition home or self-care (01) ==
PROVIDERS: PCP Internal Medicine; Visit Provider Urology
PROC: (CPT 57288; principal; 2022-05-19 07:30)
DX: N39.3 Stress incontinence (female) (male) (principal); F98.8 Other specified behavioral and emotional disorders with onset usually occurring in childhood and adolescence; F41.9 Anxiety disorder, unspecified; M41.85 Other forms of scoliosis, thoracolumbar region; Z98.1 Arthrodesis status; Z87.891 Personal history of nicotine dependence
CPT/HCPCS: 57288; A9270; C1771; J0690; J1100; J1885; J2250; J2405; J2704; J3010; J7030; J7120

== ENCOUNTER → 2022-07-26 16:00 | Outpatient (CLI) | payer OTHER, SELFPAY ==
--- NOTE | ~2022-07-26 | XR_ITS ---
XR chest 2V DATE: 07/26/2022 16:12 INDICATION: Cough, congestion and wheezing for 8 days TECHNIQUE: 2 views COMPARISON: 10/02/2021 2 view chest FINDINGS: There is levoscoliosis of the upper thoracic spine and more prominent rotatory dextro scoli osis of the lower thoracic spine. Normal heart size. No hilar or mediastinal enlargement. No pulmonary infiltrate or consolidation, ple ural effusion or pulmonary vascular congestion or pneumothorax is detected. Surgical clips, right upper quadrant, consistent with cholecystectomy. IMPRESSION: Prominent scoliosis No active cardiopulmonary disease Status post cholecystectomy Reviewed, dictated and finalized at location A.
== END ==
PROVIDERS: PCP Family Medicine; Visit Provider Family Medicine
DX: R05.9 Cough, unspecified (principal); M41.9 Scoliosis, unspecified; Z90.49 Acquired absence of other specified parts of digestive tract
CPT/HCPCS: 71046

== ENCOUNTER 2023-02-28 11:23 | Day surgery (SDC) | payer OTHER, SELFPAY ==
[2023-02-08 11:40] VITALS: BMI 30.5
[2023-02-12 13:49] VITALS: BMI 31.2
--- NOTE | 2023-02-27 16:19 | PM.HPGS ---
History of Present Illness History of Present Illness Consent: Risks, benefits, and alternatives have been discussed and questions answered. Patient agrees to proceed with procedure. Chief complaint: Neoplasm Screening Narrative: Gayla Alfaor is a 52 year old female referred for colon cancer screeningShe has a family history of colon cancer in that both grandparents on her mother's side had colon cancer. Review of Systems Review of Systems: All systems reviewed & are unremarkable except as noted in HPI and below PMFSH Past Medical History Medical History ADD (attention deficit disorder) Anxiety Fibromyalgia Intermittent palpitations Obesity Scoliosis of thoracolumbar region due to degenerative disease of spine in adult Surgical History Surgical History H/O discectomy H/O tubal ligation History of hysterectomy History of lumbar fusion Hx laparoscopic cholecystectomy 10/04/21 Hx of laminectomy Family History Family History Father Hypertension Heart disease Cerebrovascular accident Mother Hypertension Heart disease COPD (chronic obstructive pulmonary disease) Social History Social History Smoking packs per day: 0.5 Smoking cigarettes per day: 10.0 Years smoked: 10 Smoking pack-years: 5.00 Smoking status: Former smoker Tobacco type: cigarettes Smoking end date: 11/19/05 Additional smoking assessment comments: 1/2 ppd x 12 years Alcohol intake: current Drinks per week: 1 Alcohol use details: ONCE A MONTH Substance use: never Substance use type: does not use Lack of Transportation: No Lack of Food: Never True Current Housing: I Have Housing Concerned About Future Housing: No Difficulty Paying Gas/Electric Bills: No Difficulty Paying for Meds: No Currently Unemployed: No Education: High School Diploma/GED Difficulty w/ Childcare or Family Care: No Living arrangements: with family Gender identity (if verbalized by the patient): Female Sexual Orientation (if Verbalized by the Patient): Straight or Heterosexual Spiritual care concerns: No Meds Home Medications and Allergies Home Medications Medication Instructions Recorded Confirmed Type naltrexone 50 mg tablet 3 mg PO DAILY 12/08/21 02/28/23 History cyclobenzaprine 10 mg tablet 10 mg PO PRN PRN muscle spasm 05/16/22 02/28/23 History alprazolam 0.5 mg tablet 0.5 mg PO DAILY PRN anxiety #30 01/19/23 02/28/23 Rx tabs dextroamphetamine-amphetamine 15 15 mg PO BID #60 tabs 02/20/23 02/28/23 Rx mg tablet ibuprofen 800 mg tablet 800 mg PO .Q8-12h PRN fever or 02/20/23 02/28/23 Rx pain #30 tabs Allergies Allergy/AdvReac Type Severity Reaction Status Date / Time No Known Allergies Allergy Unknown Verified 02/28/23 11:40 Exam Resp: Auscultation: clear to auscultation bilaterally Cardio: Rate: regular rate Rhythm: regular rhythm GI: GI Palp: Yes Soft to palpation and No Tenderness to palpation present (GI) Assessment and Plan Assessment and plan (1) Screening for colon cancer: Code(s): Z12.11 - Encounter for screening for malignant neoplasm of colon Status: Acute Assessment and Plan: Colonoscopy with possible biopsy or polypectomy or cautery or injection of substances.
--- NOTE | 2023-02-28 10:43 | WPDANESEPPF ---
Anes - Initial Pre Proc Eval Procedure: Operation Date: 02/28/23 13:00 Proposed Procedures p Screening Colonoscopy - Yogi Adams MD Date/Time: 02/28/23 10:43 Surgeon: Yogi Adams MD Pre Op Diagnosis: Neoplasm Screening Patient Data Age: 52 Gender: F Height: 1.6 m Weight: 80 kg Allergies Allergy/AdvReac Type Severity Reaction Status Date / Time No Known Allergies Allergy Unknown Verified 02/28/23 11:40 Home Medications Medication Instructions Recorded Confirmed Type naltrexone 50 mg tablet 3 mg PO DAILY 12/08/21 02/28/23 History cyclobenzaprine 10 mg tablet 10 mg PO PRN PRN muscle spasm 05/16/22 02/28/23 History alprazolam 0.5 mg tablet 0.5 mg PO DAILY PRN anxiety #30 01/19/23 02/28/23 Rx tabs dextroamphetamine-amphetamine 15 15 mg PO BID #60 tabs 02/20/23 02/28/23 Rx mg tablet ibuprofen 800 mg tablet 800 mg PO .Q8-12h PRN fever or 02/20/23 02/28/23 Rx pain #30 tabs Patient hx anesthesia problems: none Family hx anesthesia problems: none Results Review: All pre-operative results and documents have been reviewed as part of the pre-operative evaluation. [facility] Past Medical History Medical History (Updated 02/28/23 @ 10:45 by Moshe Moses MD) ADD (attention deficit disorder) Anxiety Fibromyalgia Intermittent palpitations Obesity Scoliosis of thoracolumbar region due to degenerative disease of spine in adult Surgical History Surgical History H/O discectomy H/O tubal ligation History of hysterectomy History of lumbar fusion Hx laparoscopic cholecystectomy 10/04/21 Hx of laminectomy Family History Family History Father Hypertension Heart disease Cerebrovascular accident Mother Hypertension Heart disease COPD (chronic obstructive pulmonary disease) Social History Social History (Updated 01/19/23 @ 08:56 by Petra Mcdowell CMA) Smoking packs per day: 0.5 Smoking cigarettes per day: 10.0 Years smoked: 10 Smoking pack-years: 5.00 Smoking status: Former smoker Tobacco type: cigarettes Smoking end date: 11/19/05 Additional smoking assessment comments: 1/2 ppd x 12 years Alcohol intake: current Drinks per week: 1 Alcohol use details: ONCE A MONTH Substance use: never Substance use type: does not use Lack of Transportation: No Lack of Food: Never True Current Housing: I Have Housing Concerned About Future Housing: No Difficulty Paying Gas/Electric Bills: No Difficulty Paying for Meds: No Currently Unemployed: No Education: High School Diploma/GED Difficulty w/ Childcare or Family Care: No Living arrangements: with family Gender identity (if verbalized by the patient): Female Sexual Orientation (if Verbalized by the Patient): Straight or Heterosexual Spiritual care concerns: No Anes - Eval Final PreProcedure Day of Procedure 02/28/23 10:43 Patient weight: obese Heart: regular rate and rhythm Lungs: clear to auscultation Airway: Mallampati scale class II Neurological: alert and oriented Last oral intake: >/= 8 hours ASA classification: III Emergent: no Anesthetic plan: proceed Anesthesia type and monitoring: general GIVS and standard monitoring Results Review: All pre-operative results and documents have been reviewed as part of the pre-operative evaluation. Informed Consent: The patient's anesthetic plan and its attendant risks and benefits were discussed with the patient/family/POA. Questions were solicited and answers provided to the satisfaction of the patient/family/POA.
[2023-02-28 11:35] VITALS: BP 97/75; PULSE 71; RESP 20; TEMP 36.4; O2SAT 100
[2023-02-28] MEDS: LACTATED RINGERS 1,000 ML 150 ML IV CONT (12:08)
[2023-02-28 13:10] VITALS: BP 110/84; PULSE 73; RESP 15; O2SAT 98
[2023-02-28 13:20] VITALS: BP 123/71; PULSE 65; RESP 16; O2SAT 96
[2023-02-28 13:30] VITALS: BP 127/85; PULSE 66; RESP 15; O2SAT 100
--- NOTE | 2023-02-28 15:11 | WPDANESPN ---
Anes - Prog Note Post-Op Date/Time: 02/28/23 15:11 Cardiovascular status: normal Respiratory status: normal Airway patency: baseline Mental status: baseline Post-Op hydration status: normal Vital Signs: Last Vital Signs Temp 36.4 C 02/28/23 11:35 Pulse 66 02/28/23 13:30 Resp 15 02/28/23 13:30 BP 127/85 02/28/23 13:30 Pulse Ox 100 02/28/23 13:30 O2 Del Method Room Air 02/28/23 13:30 Pain Score (VAS): 0 I/O: Intake & Output 02/27/23 02/28/23 02/28/23 23:59 07:59 15:59 Intake Total 300 Balance 300 Post-procedural complaints: none Patient Feedback: Patient satisfied with anesthetic care.
== END 2023-02-28 13:50 | disposition home or self-care (01) ==
PROVIDERS: PCP Nurse Practitioner; Visit Provider Internal Medicine Gastroenterology
PROC: 0DJD8ZZ Inspection of Lower Intestinal Tract, Via Natural or Artificial Opening Endoscopic (ICD-10-PCS; CPT 45378; principal; 2023-02-28 13:00)
DX: Z12.11 Encounter for screening for malignant neoplasm of colon (principal)
CPT/HCPCS: 45378

== ENCOUNTER 2023-10-05 11:22 | Outpatient (CLI) | payer OTHER, SELFPAY ==
[2023-10-05 18:42] LABS: Basophils Percent Auto 0.8 % (0.2-1.2); Eosinophils Absolute Auto 0.2 K/mm3 (0-0.3); Eosinophils Percent Auto 3.2 % (0-4.4); Hematocrit 42.3 % (37.0-47.0); Hemoglobin 14.1 g/dL (12.0-15.0); Lymphocytes Absolute Auto 1.88 K/mm3 (0.9-3.2); Lymphocytes Percent Auto 39.5 % (18.3-44.2); Mean Corpuscular HGB Conc 33.3 g/dl (32-36); Mean Corpuscular Hemoglobin 28.9 pg (26-34); Mean Corpuscular Volume 86.7 fl (80-100); Mean Platelet Volume 11.2 fl (7.4-10.4); Monocytes Absolute Auto 0.4 K/mm3 (0.1-0.6); Monocytes Percent Auto 7.6 % (2.6-8.5); Neutrophils Absolute Auto 2.3 K/mm3 (1.3-6.7); Neutrophils Percent Auto 48.9 % (45.5-73.1); Platelet Count Result 261 k/mm3 (150-375); Red Blood Count 4.88 M/mm3 (4.2-5.4); White Blood Count 4.8 K/mm3 (4.5-10.0)
[2023-10-05 18:51] LABS: Alanine Aminotransferase 34 U/L (6-35); Albumin Level 4.4 g/dL (3.5-5.1); Alkaline Phosphatase 72 U/L (38-126); Anion Gap 9 mmol/L (8-16); Aspartate Amino Transferase 43 U/L (14-36); Bilirubin,Total 0.8 mg/dL (0.2-1.3); Blood Urea Nitrogen 12 mg/dL (7-17); Calcium 9.5 mg/dL (8.4-10.2); Carbon Dioxide 28 mmol/L (22-30); Chloride 102 mmol/L (98-107); Cholesterol 204 mg/dL (0-200); Estimated Glomerular Filt Rate > 60; Glucose 85 mg/dL (65-110); HDL Direct 68 mg/dL; Sodium 139 mmol/L (137-145); Triglycerides 78 mg/dL (<150)
[2023-10-05 19:01] LABS: LDL Cholesterol Direct 94 mg/dL
[2023-10-05 19:03] LABS: Vitamin D 25 Hydroxy 30.3 ng/mL
[2023-10-05 19:53] LABS: Folic Acid 10.5 ng/mL (2.76->20)
[2023-10-09 20:09] LABS: Apolipoprotein B 80 mg/dL (<90)
== END 2023-10-05 11:23 | disposition home or self-care (01) ==
LOC: ANHGOSHLAB 11:23
PROVIDERS: PCP Internal Medicine; Visit Provider Nurse Practitioner
DX: G62.9 Polyneuropathy, unspecified (principal); Z13.220 Encounter for screening for lipoid disorders; Z13.29 Encounter for screening for other suspected endocrine disorder; F41.9 Anxiety disorder, unspecified; E78.49 Other hyperlipidemia; F32.A Depression, unspecified; E55.9 Vitamin D deficiency, unspecified
CPT/HCPCS: 36415; 80053; 80061; 82172; 82306; 82607; 82746; 84443; 85025

== ENCOUNTER 2023-10-25 10:23 | Outpatient (CLI) | payer OTHER, SELFPAY ==
--- NOTE | 2023-10-25 | EST_ITS ---
Patient Info Name: Gayla Alfaro Age: 52 years : 1970 Gender: Female Ht: 63 in Wt: 175 lbs BSA: 1.91 m2 HR: 67 bpm BP: 128 / 76 mmHg Heart Rhythm: Sinus Rhythm Exam Date: 10/25/2023 10:52 AM Exam Location: Echo Lab Patient Status: Outpatient Admit Date: 10/25/2023 Staff Ordering Physician: Raegan Su NP Attending Provider: Raegan Su NP Exercise Technologist: Karissa Vazquez CT Exercise Physician: Cornell Vsaquez DO Exam Type: CA stress test treadmill Study Info Indications R07.9 - Chest pain, unspecified A treadmill exercise stress test was performed. Summary 1. 1. Negative Charly exercise stress test for ischemic ST changes by ECG criteria. 2. 2. Good functional capacity, achieving 10 METs of workload. 3. 3. Appropriate HR response to exercise. 4. 4. Appropriate HR recovery at 1 minute post exercise. 5. 5. No imaging with stress testing. 6. 6. Patient informed of the above results. Protocol: Charly Stress ECG Details Stage: REST Duration (min): 0 min : 57 sec Speed (mph): 0.0 Grade (%): 0 HR (bpm): 66 SBP (mmHg): 128 DBP (mmHg): 76 METS: --- Stage: REST Duration (min): 9 min : 33 sec Speed (mph): 0.0 Grade (%): 0 HR (bpm): 66 SBP (mmHg): 128 DBP (mmHg): 76 METS: --- Stage: STAGE 1 Duration (min): 1 min : 0 sec Speed (mph): 1.7 Grade (%): 10 HR (bpm): 97 SBP (mmHg): 128 DBP (mmHg): 76 METS: --- Stage: STAGE 1 Duration (min): 2 min : 0 sec Speed (mph): 1.7 Grade (%): 10 HR (bpm): 104 SBP (mmHg): 128 DBP (mmHg): 76 METS: --- Stage: STAGE 1 Duration (min): 3 min : 0 sec Speed (mph): 1.7 Grade (%): 10 HR (bpm): 108 SBP (mmHg): 175 DBP (mmHg): 80 METS: --- Stage: STAGE 2 Duration (min): 1 min : 0 sec Speed (mph): 2.5 Grade (%): 12 HR (bpm): 116 SBP (mmHg): 175 DBP (mmHg): 80 METS: --- Stage: STAGE 2 Duration (min): 2 min : 0 sec Speed (mph): 2.5 Grade (%): 12 HR (bpm): 123 SBP (mmHg): 186 DBP (mmHg): 84 METS: --- Stage: STAGE 2 Duration (min): 3 min : 0 sec Speed (mph): 2.5 Grade (%): 12 HR (bpm): 127 SBP (mmHg): 186 DBP (mmHg): 84 METS: --- Stage: STAGE 3 Duration (min): 1 min : 0 sec Speed (mph): 3.4 Grade (%): 14 HR (bpm): 141 SBP (mmHg): 184 DBP (mmHg): 87 METS: --- Stage: STAGE 3 Duration (min): 2 min : 0 sec Speed (mph): 3.4 Grade (%): 14 HR (bpm): 149 SBP (mmHg): 184 DBP (mmHg): 87 METS: --- Stage: STAGE 3 Duration (min): 2 min : 0 sec Speed (mph): 3.4 Grade (%): 14 HR (bpm): 149 SBP (mmHg): 184 DBP (mmHg): 87 METS: --- Stage: RECOVERY Duration (min): 0 min : 59 sec Speed (mph): 0.0 Grade (%): 0 HR (bpm): 123 SBP (mmHg): 176 DBP (mmHg): 71 METS: --- Stage: RECOVERY Duration (min): 1 min : 59 sec Speed (mph): 0.0 Grade (%): 0 HR (bpm): 101 SBP (mmHg): 176 DBP (mmHg): 7
== END 2023-10-25 10:24 | disposition home or self-care (01) ==
PROVIDERS: PCP Internal Medicine; Visit Provider Nurse Practitioner
DX: R07.9 Chest pain, unspecified (principal)
CPT/HCPCS: 93017

== ENCOUNTER 2024-04-17 15:15 | Outpatient (RCR) | payer OTHER, SELFPAY ==
--- NOTE | 2024-04-22 12:54 | PCPTNOTE ---
Pt canceled due to illness.
--- NOTE | 2024-04-24 10:26 | PCPTNOTE ---
Pt canceled due to illness.
--- NOTE | 2024-04-29 16:15 | PCPTNOTE ---
Called and LM for pt of next day and time of appt.
--- NOTE | 2024-05-01 15:47 | PCPTNOTE ---
Pt no showed visit again today.
--- NOTE | 2024-05-06 10:18 | PCPTNOTE ---
Pt No showed visit again today.
== END 2024-07-01 23:59 | disposition home or self-care (01) ==
LOC: ANHPT 15:15
PROVIDERS: PCP Nurse Practitioner
DX: M41.20 Other idiopathic scoliosis, site unspecified (principal)
CPT/HCPCS: 97110; 97112; 97113; 97530

== ENCOUNTER 2024-07-07 11:56 | Outpatient (CLI) | payer OTHER, SELFPAY ==
--- NOTE | ~2024-07-07 | US_ITS ---
EXAMINATION: US thyroid DATE: 07/07/2024 12:07 INDICATION: Nontoxic single thyroid nodule. TECHNIQUE: Multiple ultrasound images of the thyroid were obtained. COMPARISON: None. FINDINGS: The right thyroid lobe measures 4.1 x 1.6 x 1.8 cm. The left thyroid lobe measures 4.1 x 1.5 x 1.4 c m. There is normal echotexture and echogenicity throughout the thyroid gland. No discrete nodules id entified. Normal vascular flow is present. IMPRESSION: 1. Normal thyroid. Reviewed, dictated and finalized at location A. IMPRESSION: 1. Normal thyroid.
--- NOTE | ~2024-07-07 | XR_ITS ---
EXAMINATION: XR chest 2V Exam Date/Time: 07/07/2024 12:04 CDT HISTORY: R07.9 - Chest pain, unspecified Comparison: 07/26/2022. RESULT: Lines, tubes, and devices: Cholecystectomy clips. Uncomplicated appearing partially visualized thora columbar fusion hardware. Lungs and pleura: Clear. Cardiomediastinal silhouette: Stable. Other: No acute osseous or upper abdominal finding. IMPRESSION: No acute cardiopulmonary process. Reviewed, dictated and finalized at location K.
== END 2024-07-07 11:57 ==
LOC: GOSHIMG 11:57
PROVIDERS: PCP Nurse Practitioner; Visit Provider Nurse Practitioner
DX: E04.1 Nontoxic single thyroid nodule (principal); R07.9 Chest pain, unspecified
CPT/HCPCS: 71046; 76536

== ENCOUNTER 2024-08-05 10:06 | Outpatient (CLI) | payer OTHER, SELFPAY ==
--- NOTE | 2024-08-19 12:43 | WPDHOMESLEEP ---
Sleep Study - Home Unattended Date of Study: 08/05/24 Ordering Provider: Raegan Su NP Interpreting Provider: Leydi Holm, DO Home Sleep Study Type: Watch PAT Height: 1.57 m Weight: 82.554 kg Body Mass Index: 33.3 Neck Circumference (inches): 15.5 [place]: 6 Reason for Sleep Study Daytime hypersomnia Sleep History The patient is a 53-year-old female that had a sleep study ordered by her primary care for evaluation of sleep apnea. The patient admits to loud snoring, excessive daytime sleepiness, trouble maintaining sleep and trouble falling asleep. The patient denies stopping breathing during the night. The patient denies choking or gasping in her sleep. The patient denies having trouble breathing on her back. The patient denies awakening with a headache in the morning. The patient admits to having a dry mouth or throat in the morning. The patient denies nocturnal heartburn. The patient denies nocturia. The patient does have difficulty returning to sleep if she wakes up in the middle of the night. The patient admits to having trouble falling asleep. The patient does not take any hypnotics or sedatives to help her sleep. The patient denies having anxiety about sleep. The patient admits to feeling tired or fatigued during off. The patient admits to unrefreshing sleep and feeling tired in the morning. The patient does have the urge to fall asleep during the day. The patient admits to feeling drowsy while driving. The patient does clench or grind her teeth. The patient denies kicking or jerking her legs excessively at night. The patient denies having a restless feeling in her legs. The patient goes to bed at 11:00 p.m. on both weekdays and weekends. It takes her 1 hour to fall asleep. She typically sleeps 6 hours on average per night. She does not take any planned naps. The patient does feel more alert in the evening compared to morning. The patient does wake up before her scheduled wake up time. The patient does have trouble falling asleep during normal hours. The patient consumes 1-2 caffeinated beverages per day. The patient denies tobacco and alcohol use. The patient does not exercise on a regular basis. The patient does not have a rotating shift schedule for work. [facility] Past Medical History Medical History ADD (attention deficit disorder) Anxiety Fibromyalgia Fusion of spine Intermittent palpitations Obesity Scoliosis of thoracolumbar region due to degenerative disease of spine in adult Surgical History Surgical History H/O discectomy H/O tubal ligation History of hysterectomy History of lumbar fusion Hx laparoscopic cholecystectomy 10/04/21 Hx of laminectomy Family History Family History Father Hypertension Heart disease Cerebrovascular accident Mother Hypertension Heart disease COPD (chronic obstructive pulmonary disease) Social History Social History Smoking packs per day: 0.5 Smoking cigarettes per day: 10.0 Years smoked: 10 Smoking pack-years: 5.00 Smoking status: Former smoker Tobacco type: cigarettes Smoking end date: 11/19/05 Additional smoking assessment comments: 1/2 ppd x 12 years Alcohol intake: current Drinks per week: 1 Alcohol use details: ONCE A MONTH Substance use: never Substance use type: does not use Lack of Transportation: No Lack of Food: Never True Current Housing: I Have Housing Concerned About Future Housing: No Difficulty Paying Gas/Electric Bills: No Difficulty Paying for Meds: No Currently Unemployed: No Education: Associate Degree Difficulty w/ Childcare or Family Care: No Living arrangements: with family Gender identity (if verbalized by the patient): Female Sexual Orie
[2024-08-19 12:44] VITALS: BMI 33.3
== END 2024-08-06 12:24 | disposition home or self-care (01) ==
LOC: ANHCSM 10:12
PROVIDERS: PCP Nurse Practitioner; Visit Provider Nurse Practitioner
DX: G47.33 Obstructive sleep apnea (adult) (pediatric) (principal); R40.0 Somnolence
CPT/HCPCS: 95800

== ENCOUNTER 2024-08-15 10:12 | Outpatient (CLI) | payer OTHER, SELFPAY ==
--- NOTE | ~2024-08-15 | MMUS_ITS ---
. EXAMINATION: MM diagnostic nico BI w madi, US breast LT limited HISTORY: Left breast pain TECHNIQUE: Additional 3-D tomosynthesis images of the breasts were performed and synthetic 2-D images were generated. CAD analysis was submitted and interpreted. High resolution Limited left breast ultr asound was performed. COMPARISON: None BREAST PARENCHYMAL COMPOSITION: Dense: The breasts are heterogeneously dense, which may obscure small masses FINDINGS: MAMMOGRAPHIC FINDINGS: There are no suspicious masses, calcifications or architectural distortion in either breast to sugges t malignancy. ULTRASOUND: Limited left breast ultrasound: Normal heterogeneous echotexture without focal solid or cystic mass. IMPRESSION: 1. No evidence for malignancy in either breast. 2. Routine yearly screening mammogram and regular clinical breast examination are recommended. BI-RADS Category 1: Negative Reviewed, dictated and finalized at location B. IMPRESSION: 1. No evidence for malignancy in either breast. 2. Routine yearly screening mammogram and regular clinical breast examination a re recommended. BI-RADS Category 1: Negative
== END 2024-08-15 10:13 | disposition home or self-care (01) ==
LOC: ANHIMG 10:13
PROVIDERS: PCP Nurse Practitioner; Visit Provider Clinical Nurse Specialist
DX: N64.4 Mastodynia (principal)
CPT/HCPCS: 76642; 77062; 77066; G0279

== ENCOUNTER 2024-09-09 10:25 | Outpatient (CLI) | payer OTHER, SELFPAY ==
--- NOTE | ~2024-09-09 | XR_ITS ---
XR abdomen/kub 1V Ordering provider: Raegan Su NP History: . abd pain with distention for 1 month . Comparison: None. FINDINGS: BOWEL: Nonobstructive bowel gas pattern. ORGANOMEGALY: None. SIGNIFICANT PATHOLOGIC CALCIFICATIONS: None. OTHER: Postoperative changes in the spine No free air is seen under the diaphragm. IMPRESSION: NO ACUTE ABDOMINAL FINDINGS. Result of the cervical Postoperative changes in the spine. Reviewed, dictated and finalized at location A.
== END 2024-09-09 10:26 | disposition home or self-care (01) ==
PROVIDERS: PCP Nurse Practitioner; Visit Provider Nurse Practitioner
DX: R14.0 Abdominal distension (gaseous) (principal)
CPT/HCPCS: 74018

== ENCOUNTER 2024-09-11 08:45 | Outpatient (CLI) | payer OTHER, SELFPAY ==
--- NOTE | ~2024-09-11 | US_ITS ---
COMPLETE ABDOMINAL ULTRASOUND Ordering provider: Raegan Su NP History: . R14.0 - Abdominal distension (gaseous) . Comparison: None. FINDINGS: LIVER: Normal size and echotexture. No focal hepatic lesions or perihepatic fluid collections are markus ntified. Normal flow of the portal vein. GALLBLADDER: Status post cholecystectomy. BILIARY DUCTS: No evidence for intra or extrahepatic biliary dilation. Common bile duct measures 7 mm in diameter which is within normal limits. PANCREAS: Normal visualized portion. SPLEEN: Normal size, echotexture and contour and measures 9.7 cm in length. KIDNEYS: Right measures 10x 4.6 x 4.1 cm in length and the left 12.4x 5.1x 6 cm in length. There is n o evidence for hydronephrosis, solid renal mass, renal calculi or perinephric fluid collections. No r enal cysts. UPPER ABDOMINAL AORTA: Normal in caliber. Proximal aorta measures 2.1 cm. Midabdomen measures 1.7 cm. IVC: Patent. FREE FLUID: None. SUPRAUMBILICAL hernia is noted. The defect measures 0.7 cm. IMPRESSION: hernia superior to the umbilicus.otherwise, Unremarkable complete ultrasound of the abdomen. Reviewed, dictated and finalized at location A.
== END 2024-09-11 08:46 | disposition home or self-care (01) ==
LOC: GOSHIMG 08:46
PROVIDERS: PCP Nurse Practitioner; Visit Provider Nurse Practitioner
DX: K42.0 Umbilical hernia with obstruction, without gangrene (principal)
CPT/HCPCS: 76700

== ENCOUNTER 2025-01-22 10:33 | Outpatient (CLI) | payer OTHER, SELFPAY ==
--- OUTSIDE RECORDS SUMMARY | 2025-01-22 12:07 | XMS_ITS | Referral Summary ---
Author Organization [facility] Address [address] [place] [address] Care Team Providers Care Tile Helper Name Role Phone Patricia King MD Unavailable Power Leon DO Primary Care Provider [phone] Encounters Date Type Department Care Team Description 2024 Orders Only [facility] Orthopaedic Surgery [address] [facility] Advanced Medicine 6th [place] [address] [place] [address] Tigre Lucia MD Hx of spinal fusion (Primary Dx) 11/05/2024 1:23 PM HAND INSPECTOR - 11/05/2024 11:59 PM HAND INSPECTOR Hospital Encounter [facility] [address] [place], [place] [id number] Tigre Lucia MD Idiopathic scoliosis in adult patient; Hx of spinal fusion Discharge Disposition: Discharge to home or self care 11/04/2024 Orders Only [facility] Orthopaedic Surgery [address] [facility] [address] [place] [address] Tigre Lucia MD Idiopathic scoliosis in adult patient (Primary Dx); Hx of spinal fusion from Last 3 Months Allergies No known active allergies Medications ALPRAZolam (XANAX) 0.5 mg tabletIndications: anxiety,sleep Take 1 tablet (0.5 mg total) by mouth nightly as needed for anxiety or sleep 0 8 Active lisinopriL (PRINIVIL,ZESTRIL) 10 mg tabletIndications: hypertension Take 1 tablet (10 mg total) by mouth every evening 4 Active buPROPion XL (WELLBUTRIN XL) 150 mg 24 hr tabletIndications: Anxiety with Depression Take 1 tablet (150 mg total) by mouth every morning 4 Active dextroamphetamine- amphetamine (ADDERALL) 15 mg tabletIndications: Attention-Deficit Hyperactivity Disorder Take 1 tablet (15 mg total) by mouth every morning 4 Active acetaminophen (TYLENOL) 500 mg tabletIndications: Pain Take 2 tablets (1,000 mg total) by mouth every 6 (six) hours as needed for pain Active baclofen (LIORESAL) 10 mg tabletIndications: Muscle spasm Take 1 tablet (10 mg total) by mouth every 8 (eight) hours 30 tablet 4 Active lidocaine (ASPERCREME) 4 % adhesive patch,medicated Place 2 patches on the skin daily Do not apply on incision. 12 hours on, 12 hours off 4 Active senna-docusate (PERICOLACE) 8.6-50 mgIndications:cons tipation Take 2 tablets by mouth 2 (two) times a day 60 tablet 4 Active cyclobenzaprine (FLEXERIL) 10 mg tabletIndications: Muscle Spasm Take 1 tablet (10 mg total) by mouth 3 (three) times a day as needed for muscle spasms (pain) Do not take within 2 hours of Baclofen 30 tablet 4 Active gabapentin (NEURONTIN) 600 mg tabletIndications: Postoperative Acute Pain Take 1 tablet (600 mg total) by mouth every 8 (eight) hours 90 tablet 4 Active Active Problems Problem Noted Date Diagnosed Date Hypertension 08/29/2024 Anxiety 08/29/2024 Flatback syndrome 08/11/2024 Hx of spinal fusion 08/11/2024 Scoliosis 12/28/2023 Idiopathic scoliosis in adult patient 11/06/2023 Sagittal plane imbalance 11/06/2023 Scoliosis (and kyphoscoliosis), idiopathic 12/13 Fatigue 08/08/2017 Assessment & Plan (08/27/2017 1:31 PM CDT): Seeing pcp for this later this week as well. So, far labs are normal but still missing most of our serologies. Will call patient when those serologies come in. Assessment & Plan (08/08/2017 3:53 PM CDT): Check hepatitis panel today with labs. BMI 30.0-30.9,adult 07/30/2017 Assessment & Plan (07/30/2017 8:22 AM CDT): Recommended patient to continue to increase heart healthy diet with adequate fruits, vegetables, and plenty of water along with mild-moderate daily exercise as tolerated. Attention deficit disorder of adult 07/30/2017 Assessment & Plan (07/30/2017 8:22 AM CDT): Trial of Wellbutrin 150 milligrams q.day in a.m. to see if that will assist with her decreased concentration as well as fatigue. I educated her regarding side effects regarding constipation possible headaches for the 1st 5-7 days of therapy. 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 Source: EHR Chronic: N Practice ID: [id number] Billable Time: 09:00:00 AM Anemia of chronic disease 02/19/2013 Overview (10/03/2023): Anemia in chronic illness;Practice ID: 0001 Cyst of ovary 02/19/2013 Overview (10/03/2023): OVARIAN CYST;Practice ID: 0001 Atypical glandular cells on vaginal Papanicolaou smear 01/15/2013 Overview (10/03/2023): Ab Vagina Pap;Practice ID: 0001 Dysmenorrhea 01/15/2013 Overview (10/03/2023): Dysmenorrhea;Practice ID: [id number] Atypical glandular cells on cervical Pap smear 0 06/12/2012 Overview (10/03/2023): Abnormal glandular Papanicolaou smear of cervix;Recorded Elsewhere: No Location: [facility] Source: EHR Chronic: N Practice ID: [id number] Billable Time: 09:30:00 AM Carpal tunnel syndrome 06/07/2012 Overview (02/24/2017): Carpal tunnel syndrome of right wrist Iron deficiency anemia 05/21/2012 Overview (10/03/2023): Anemia, Iron Deficiency;Recorded Elsewhere: No Location: [facility] Source: EHR Chronic: N Practice ID: [id number] Billable Time: 03:45:00 PM Restless legs syndrome 04/23/2012 Overview (02/23/2017): Restless leg syndrome Idiopathic hypersomnia without long sleep time 0 04/23/2012 Overview (02/24/2017): Idiopathic hypersomnia without long sleep time Numbness and tingling sensation of skin 04/23/20 12 Overview (02/24/2017): Numbness and tingling Arthralgia 12/27/2011 Overview (02/23/2017): JOINT PAIN-MULT JTS Assessment & Plan (08/27/2017 1:34 PM CDT): .This patient, currently has normal liver,kidney, and muscle enzymes. The CBC was noted to be normal. The ESR and CRP were noted to be normal. There was no evidence of hepatitis C. The rheumatoid factor and anti CCP results are still pending. The uric acid and the NICOLASA level were noted to be normal. The TANYA and the profile results are still pending. The antiphospholipid profile results are still pending. The x rays revealed no erosive changes consistent with inflammatory arthritis. The US revealed changes consistent with mild synovitis and effusions with negative power doppler which are nonspecific findings. Pt wanted to leave before seeing Dr. King. Will try to see Dr. King at her next ov in 3 mos. Will call her when the rest of her test results come in later this week. Assessment & Plan (08/08/2017 3:54 PM CDT): Joint tenderness and questionable synovitis. Possible PsA with daughter with psoriasis and PsA. Has some ctd sx's as well. Will check serologies/avise panel, xrays and hand u/s. Declines taking nsaids at this time. Pt seen with Dr. King. F/u 2 weeks, sooner if needed. Snoring 12/08/2011 Overview (02/23/2017): Snoring Hypersomnia 12/08/2011 Overview (02/24/2017): Hypersomnia Adiposity 12/08/2011 Overview (02/24/2017): Obesity Low back pain 02/07/2010 Overview (06/07/2017): Overview: Immunizations Immunization Administration Dates Next Due Influenza, Quadrivalent, Spl it, Preservative Free, Intramuscular 09/14/2014 Influenza, Trivalent, IM (MDV) 08/25/2017,2014 Influenza, Trivalent, Preser vative Free, Intramuscular 08/22/2016,08/24/2015,09/07/2014 Tdap 07/12/2015,11/19/2004 Social History Tobacco Use Types Packs/Day Years Used Date Smoking Tobacco: Former Cigarettes Q uit: 2009 Passive Smoke Exposure: Past Smokeless Tobacco: Never Tobacco Cessation:Counseling Given: Not Answered Alcohol Use Standard Drinks/Week Comments Yes 0 (1 standard drink = 0.6 oz pur e alcohol) [facility] Utilities Answer Date Recorded In the past 12 months has [employer], oil, or water [employer] threatened to shut off services in your home? No 01/07/2024 Social Connection and Isolation Panel [NHANES] A nswer Date Recorded In a typical week, how many times do you talk on the phone with family, friends, or neighbors? Three times a week 01/07/2024 How often do you get togethe r with friends or relatives? Three times a week 01/07/2024 How often do you attend chur ch or rastafarian services? Patient declined 01/07/2024 Do you belong to any clubs o r organizations such as jainism groups, unions, fraternal or athletic groups, or school groups? Patient declined 01/07/2024 How often do you attend meet ings of the clubs or organizations you belong to? Patient declined 01/07/2024 Are you , , di vorced, , never , or living with a partner? 01/07/2024 AUDIT-C Answer Date Recorded Q1: How often do you have a drink containing alcohol? Never 08/28/2024 Q2: How many drinks containi ng alcohol do you have on a typical day when you are drinking? Patient does not drink Q3: How often do you have si x or more drinks on one occasion? Never 08/28/2024 Overall Financial Resource Strain (CARDIA) Answe r Date Recorded How hard is it for you to pa y for the very basics like food, housing, medical care, and heating? Not very hard 01/07/2024 Hunger Vital Sign Answer Date Recorded Within the past 12 months, y ou worried that your food would run out before you got the money to buy more. Never true 01/07/20 24 Within the past 12 months, t he food you bought just didn't last and you didn't have money to get more. Never true 01/07/2024 PRAPARE - Transportation Answer Date Re corded In the past 12 months, has l ack of transportation kept you from medical appointments or from getting medications? No 12/20 In the past 12 months, has l ack of transportation kept you from meetings, work, or from getting things needed for daily living? No 01/07/2024 Housing Stability Vital Sign Answer Roddy e Recorded In the last 12 months, was t here a time when you were not able to pay the mortgage or rent on time? No 01/07/2024 In the last 12 months, how many places have you lived? 1 01/07/2024 In the last 12 months, was t here a time when you did not have a steady place to sleep or slept in a halfway (including now)? No 01/07/2024 Personal Safety Answer Date Recorded Have you ever been in or are you currently in a harmful physical or emotional relationship or is someone making you feel afraid or unsafe? Denies 08/31/2024 Comments No Sex and Gender Information Value Date Recorded Sex Assigned at Not on file Legal Sex Female 12:28 AM HAND INSPECTOR Gender Identity Not on file Sexual Orientation Not on file Last Filed Vital Signs Vital Sign Reading Time Taken Comments Blood Pressure 156/94 09/05/2024 2:25 PM CDT Pulse 68 09/05/2024 1:25 PM CDT Temperature 36.7 C (98.1 F) 09/05/2024 1:25 PM CDT Respiratory Rate 18 09/05/2024 1:25 PM CDT Oxygen Saturation 100% 09/05/2024 1:25 PM CDT Inhaled Oxygen Concentration - - Weight 80 kg (176 lb 6.4 oz) 10/08/2024 1:21 PM HAND INSPECTOR Height 158.8 cm (5' 2.5 ) 10/08/2024 1:21 PM HAND INSPECTOR Body Mass Index 31.75 10/08/2024 1:21 PM HAND INSPECTOR Plan of Treatment Not on file Medical Devices Implanted Type Area Web Development Manager Device Identifier Shelf Expiration Date Model / Serial / Lot Allosource Crushed Chip Frozen Graft 90ml Bone Cancellous [id number] - [id number] Implanted:Qty: 1 on 12/28/2023 by Tigre Lucia MD at [facility] N/A: Spine Lumbar Allosource 04/07/2028 [id number] / / [id number] Depuy Synthes Spine Expedium 1 Inner Monoaxial Spine Screw Set Titanium [id number] - [id number] Implanted:Qty: 20 on 12/28/2023 by Tirge Lucia MD at [facility] N/A: Spine Lumbar Depuy Synthes Spine [id number] / / Depuy Synthes Spine Expedium 8mm 80mm Polyaxial Spine Screw Bone Titanium Nonsterile [id number] - [id number] Implanted:Qty: 2 on 12/28/2023 by Tigre Lucia MD at [facility] N/A: Spine Lumbar Depuy Synthes Spine [id number] / / Depuy Synthes Spine [place] Expedium 9.5mm Closed Wide [place] Spinal Titanium 5.5mm [id number] - [id number] Implanted:Qty: 2 on 12/28/2023 by Tigre Lucia MD at [facility] N/A: Spine Lumbar Depuy Synthes Spine [id number] / / Depuy Synthes Spine [place]ushore Expedium 6mm 50mm Fix [place] Spinal Titanium [id number] - [id number] Implanted:Qty: 8 on 12/28/2023 by Tigre Lucia MD at [facility] N/A: Spine Lumbar Depuy Synthes Spine [id number] / / Depuy Synthes Spine [place]ushore Expedium 6mm 45mm Fix [place] Spinal Titanium [id number] - [id number] Implanted:Qty: 2 on 12/28/2023 by Tigre Lucia MD at [facility] N/A: Spine Lumbar Depuy Synthes Spine [id number] / / Depuy Synthes Spine [place]ore Expedium 6mm 35mm Fix [place] Spinal Titanium [id number] - [id number] Implanted:Qty: 2 on 12/28/2023 by Tigre Lucia MD at [facility] N/A: Spine Lumbar Depuy Synthes Spine [id number] / / Depuy Synthes Spine [place] Expedium [place] Spinal Nut Lock Titanium [id number] - [id number] Implanted:Qty: 12 on 12/28/2023 by Tigre Lucia MD at [facility] N/A: Spine Lumbar Depuy Synthes Spine [id number] / / Depuy Synthes Spine [place] Expedium Slot Spine Mini Left Offset Connector Miles Titanium [id number] - [id number] Implanted:Qty: 2 on 12/28/2023 by Tigre Lucia MD at [facility] N/A: Spine Lumbar Depuy Synthes Spine [id number] / / Depuy Synthes Spine [place] Expedium Slot Spine Mini Right Offset Connector Miles [id number] - [id number] Implanted:Qty: 2 on 12/28/2023 by Tigre Lucia MD at [facility] N/A: Spine Lumbar Depuy Synthes Spine [id number] / / Depuy Synthes Spine [place] Expedium Slot Spine Straight Connector Miles Titanium Ddv [id number] - [id number] Implanted:Qty: 6 on 12/28/2023 by Tigre Lucia MD at [facility] N/A: Spine Lumbar Depuy Synthes Spine [id number] / / Allosource Crushed Chip Frozen Graft 90ml Bone Cancellous [id number] - [id number] Implanted:Qty: 1 on 12/28/2023 by Tigre Lucia MD at [facility] N/A: Spine Lumbar Allosource 04/07/2028 [id number] / / [id number] Depuy Synthes Spine [place] Expedium 55mm Band Clamp Spinal Titanium [id number] - [id number] Implanted:Qty: 2 on 12/28/2023 by Tigre Lucia MD at [facility] N/A: Spine Lumbar Depuy Synthes Spine [id number] / / Depuy Synthes Spine [place] 5.5mm 60mm Transverse Body Spine Connector Miles Nonsterile [id number] - [id number] Implanted:Qty: 2 on 12/28/2023 by Tigre Lucia MD at [facility] N/A: Spine Lumbar Depuy Synthes Spine [id number] / / Depuy Synthes Spine Expedium Viper 2 5.5mm 480mm Straight [place] Spinal [id number] - [id number] Implanted:Qty: 3 on 12/28/2023 by Tigre Lucia MD at [facility] N/A: Spine Lumbar Depuy Synthes Spine [id number] / / Depuy Synthes Spine [place] Expedium 2 Spine Wire Fixation Cocr Titanium [id number] - [id number] Implanted:Qty: 2 on 12/28/2023 by Tigre Lucia MD at [facility] N/A: Spine Lumbar Depuy Synthes Spine [id number] / / Depuy Synthes Spine Expedium 5.5mm Open Closed Spine Connector Miles Titanium [id number] - [id number] Implanted:Qty: 2 on 12/28/2023 by Tigre Lucia MD at [facility] N/A: Spine Lumbar Depuy Synthes Spine [id number] / / Allosource Crushed Chip Frozen Graft 60ml Bone Cancellous [id number] - [id number] Implanted:Qty: 1 on 12/28/2023 by Tigre Lucia MD at [facility] N/A: Spine Lumbar Allosource 05/04/2028 [id number] / / [id number] Medtronic Inc Kit Graft Bone Sponge Xlg Infuse 8cc Granules [id number] - [id number] Implanted:Qty: 4 on 12/28/2023 by Tigre Lucia MD at [facility] N/A: Spine Lumbar Medtronic Inc [id number] 05/19/2025 [id number] / / [id number] Abyrx Hemasorb Filled Applicator Surgical Rachel-351 - [id number] Implanted:Qty: 1 on 12/28/2023 by Tigre Lucia MD at [facility] N/A: Spine Lumbar Abyrx 06/18/2026 [id number]-351 / / Depuy Synthes Spine Expedium 5mm 35mm Fix Spine Cortical Screw Bone Titanium 5.5mm [id number] - [id number] Implanted:Qty: 1 on 12/28/2023 by Tigre Lucia MD at [facility] N/A: Spine Lumbar Depuy Synthes Spine [id number] / / Depuy Synthes Spine Expedium 5mm 40mm Fix Spine Cortical Screw Bone Titanium 5.5mm [id number] - [id number] Implanted:Qty: 3 on 12/28/2023 by Tigre Lucia MD at [facility] N/A: Spine Lumbar Depuy Synthes Spine [id number] / / Depuy Synthes Spine Expedium 6mm 35mm Fix Spine Cortical Screw Bone Titanium 5.5mm [id number] - [id number] Implanted:Qty: 1 on 12/28/2023 by Tigre Lucia MD at [facility] N/A: Spine Lumbar Depuy Synthes Spine [id number] / / Depuy Synthes Spine Expedium 6mm 40mm Fix Spine Cortical Screw Bone Titanium 5.5mm [id number] - [id number] Implanted:Qty: 9 on 12/28/2023 by Tigre Lucia MD at [facility] N/A: Spine Lumbar Depuy Synthes Spine [id number] / / Abyrx Hemasorb Filled Applicator Surgical Rachel-351 - [id number] Implanted:Qty: 1 on 08/29/2024 by Tigre Lucia MD at [facility] N/A: Spine Lumbar Abyrx 11/18/2026 RACHEL-351 / / Medtronic Inc Kit Graft Bone Sponge Xlg Infuse 8cc Granules [id number] - [id number] Implanted:Qty: 4 on 08/29/2024 by Tigre Lucia MD at [facility] N/A: Spine Lumbar Medtronic Inc [id number] 01/17/2026 [id number] / / [id number] Allosource Graft Bone Canc 90ml Crushed Chip Frozen [id number] - [id number] Implanted:Qty: 1 on 08/29/2024 by Tigre Lucia MD at [facility] N/A: Spine Lumbar Allosource 05/14/2029 [id number] / / [id number] Allosource Graft Bone Canc 90ml Crushed Chip Frozen [id number] - [id number] Implanted:Qty: 1 on 08/29/2024 by Tigre Lucia MD at [facility] N/A: Spine Lumbar Allosource 03/10/2029 [id number] / / [id number] Depuy Synthes Spine [place]ushore Expedium 6mm 50mm Fix [place] Spinal Titanium [id number] - [id number] Implanted:Qty: 2 on 08/29/2024 by Tigre Lucia MD at [facility] N/A: Spine Lumbar Depuy Synthes Spine [id number] / / Depuy Synthes Spine [place]ushore Expedium 7mm 50mm Fix [place] Spinal Titanium [id number] - [id number] Implanted:Qty: 4 on 08/29/2024 by Tigre Lucia MD at [facility] N/A: Spine Lumbar Depuy Synthes Spine [id number] / / Depuy Synthes Spine [place]ushore Expedium 7mm 45mm Fix [place] Spinal Titanium [id number] - [id number] Implanted:Qty: 2 on 08/29/2024 by Tigre Lucia MD at [facility] N/A: Spine Lumbar Depuy Synthes Spine [id number] / / Depuy Synthes Spine [place]ushore Expedium 7mm 35mm Fix [place] Spinal Titanium [id number] - [id number] Implanted:Qty: 2 on 08/29/2024 by Tigre Lucia MD at [facility] N/A: Spine Lumbar Depuy Synthes Spine [id number] / / Depuy Synthes Spine Dushore Expedium [place] Spinal Nut Lock Titanium [id number] - [id number] Implanted:Qty: 10 on 08/29/2024 by Tigre Lucia MD at [facility] N/A: Spine Lumbar Depuy Synthes Spine [id number] / / Depuy Synthes Spine Expedium 1 Inner Monoaxial Spine Screw Set Titanium [id number] - [id number] Implanted:Qty: 12 on 08/29/2024 by Tigre Lucia MD at [facility] N/A: Spine Lumbar Depuy Synthes Spine [id number] / / Depuy Synthes Spine Expedium Viper 2 5.5mm 480mm Straight [place] Spinal [id number] - [id number] Implanted:Qty: 3 on 08/29/2024 by Tigre Lucia MD at [facility] N/A: Spine Lumbar Depuy Synthes Spine [id number] / / Depuy Synthes Spine 5.5mm Offset Twister Wire Titanium Latex Free [id number] - [id number] Implanted:Qty: 4 on 08/29/2024 by Tigre Lucia MD at [facility] N/A: Spine Lumbar Depuy Synthes Spine [id number] / / Depuy Synthes Spine [place] Expedium Slot Spine Mini Left Offset Connector Miles Titanium [id number] - [id number] Implanted:Qty: 1 on 08/29/2024 by Tigre Lucia MD at [facility] N/A: Spine Lumbar Depuy Synthes Spine [id number] / / Depuy Synthes Spine [place] Expedium Slot Spine Mini Right Offset Connector Miles [id number] - [id number] Implanted:Qty: 1 on 08/29/2024 by Tigre Lucia MD at [facility] N/A: Spine Lumbar Depuy Synthes Spine [id number] / / Depuy Synthes Spine [place] Expedium 55mm Band Clamp Spinal Titanium [id number] - [id number] Implanted:Qty: 2 on 08/29/2024 by Tigre Lucia MD at [facility] N/A: Spine Lumbar Depuy Synthes Spine [id number] / / Depuy Synthes Spine [place]ushore Expedium Slot Spine Downsize Connector Miles Titanium Ddv [id number] - [id number] Implanted:Qty: 2 on 08/29/2024 by Tigre Lucia MD at [facility] N/A: Spine Lumbar Depuy Synthes Spine [id number] / / Depuy Synthes Spine [place] 5.5mm 60mm Transverse Body Spine Connector Miles Nonsterile [id number] - [id number] Implanted:Qty: 2 on 08/29/2024 by Tigre Lucia MD at [facility] N/A: Spine Lumbar Depuy Synthes Spine [id number] / / Depuy Synthes Spine [place] 5.5mm 2 End To End Spine Connector Miles Nonsterile [id number] - [id number] Implanted:Qty: 2 on 08/29/2024 by Tigre Lucia MD at [facility] N/A: Spine Lumbar Depuy Synthes Spine [id number] / / Depuy Synthes Spine Exped[place] 5.5mm 55mm Line Prebent [place] Spinal Titanium Nonsterile [id number] - [id number] Implanted:Qty: 2 on 08/29/2024 by Tigre Lucia MD at [facility] N/A: Spine Lumbar Depuy Synthes Spine [id number] / / Depuy Synthes Spine [place]ush[place] Expedium 2 Spine Wire Fixation Cocr Titanium [id number] - [id number] Implanted:Qty: 2 on 08/29/2024 by Tigre Lucia MD at [facility] N/A: Spine Lumbar Depuy Synthes Spine [id number] / / Depuy Synthes Spine Expedium 5.5mm Open Closed Spine Connector Miles Titanium [id number] - [id number] Implanted:Qty: 2 on 08/29/2024 by Tigre Lucia MD at [facility] N/A: Spine Lumbar Depuy Synthes Spine [id number] / / Depuy Synthes Spine Expedium 9mm 80mm Polyaxial Spine Pedicle Screw Bone Titanium 5.5 [id number] - [id number] Implanted:Qty: 2 on 08/29/2024 by Tigre Lucia MD at [facility] N/A: Spine Lumbar Depuy Synthes Spine [id number] / / Explanted Type Area Web Development Manager Device Identifier Shelf Expiration Date Model / Serial / Lot Depuy Synthes Spine Dushore Expedium 6mm 45mm Fix [place] Spinal Titanium [id number] - [id number] Explanted:Qty : 1 on 08/29/2024 by Tigre Lucia MD at [facility] N/A: Spine Lumbar Depuy Synthes Spine [id number] / / Procedures Procedure Name Priority Date/Time Associated Diagnosis Comments XR SCOLIOSIS AP LAT Schedule Routine, Read Routine (OP Routine) 11/05/2024 1:41 PM HAND INSPECTOR Idiopathic scoliosis in adult patient Hx of spinal fusion HEPATITIS PANEL, ACUTE Routine 08/18/2024 5:31 PM CDT Flatback syndrome Sagittal plane imbalance Hx of spinal fusion DIAGNOSTIC MAMMOGRAM BILATERAL W QUIQUE Routine 11/18/2014 11:02 AM HAND INSPECTOR HM COLONOSCOPY Routine 08/21/2011 from Last 3 Months or Most Recently Relevant to Health Maintenance Results * XR Scoliosis AP LAT (11/05/2024 1:41 PM HAND INSPECTOR) Anatomical Region Laterality Modality Spine N/A Computed Radiogr aphy 11/05/2024 2:09 PM HAND INSPECTOR Impressions 11/05/2024 2:10 PM HAND INSPECTOR 1. Unchanged posterior instrumented fusion extending from T4 to the pelvis, L3 pedicle subtraction osteotomy, and anterior discectomy and fusion of L5-S1. 2. Unchanged moderate lumbar levoscoliosis and compensatory thoracic dextrocurvature. Dictated by: Del Kan M.D. The radiology attending physician has personally reviewed this study, and had reviewed and/or edited this written report and agrees with it. Electronically signed by: Raymundo Ng M.D. Narrative 11/05/2024 2:10 PM HAND INSPECTOR EXAMINATION: XR SCOLIOSIS AP AND LATERAL HISTORY: Scoliosis status post spinal fusion. COMPARISON: 10/08/2024 FINDINGS: Unchanged moderate lumbar levoscoliosis and compensatory thoracic dextrocurvature. No coronal or sagittal imbalance. No pelvic obliquity. Unchanged posterior instrumented fusion extending from T4 to the pelvis, L3 pedicle subtraction osteotomy, and anterior discectomy and fusion of L5-S1. Intact instrumentation. No evidence of screw loosening. No compression deformity. Procedure Note Raymundo Ng MD - 11/05/2024 EXAMINATION: XR SCOLIOSIS AP AND LATERAL HISTORY: Scoliosis status post spinal fusion. COMPARISON: 10/08/2024 FINDINGS: Unchanged moderate lumbar levoscoliosis and compensatory thoracic dextrocurvature. No coronal or sagittal imbalance. No pelvic obliquity. Unchanged posterior instrumented fusion extending from T4 to the pelvis, L3 pedicle subtraction osteotomy, and anterior discectomy and fusion of L5-S1. Intact instrumentation. No evidence of screw loosening. No compression deformity. IMPRESSION: 1. Unchanged posterior instrumented fusion extending from T4 to the pelvis, L3 pedicle subtraction osteotomy, and anterior discectomy and fusion of L5-S1. 2. Unchanged moderate lumbar levoscoliosis and compensatory thoracic dextrocurvature. Dictated by: Del Kan M.D. The radiology attending physician has personally reviewed this study, and had reviewed and/or edited this written report and agrees with it. Electronically signed by: Raymundo Ng M.D. Tigre Lucia MD IMG XR PROCEDURES Final Result * Hepatitis panel, acute Blood (08/18/2024 5:31 PM CDT) Hep A IgM Nonreactive Nonreactive Hep B core IgM Nonreactive Nonreactive [facility] Hep C Ab Nonreactive Nonreactive [facility] Comment:Antibodies to HCV no t detected. Does NOT exclude the possibility of recent exposure to HCV. Current interpretive data was last revised on 22 HepBsAg Nonreactive Nonreactive [facility] Blood 08/18/2024 5:31 PM CDT 08/18/2024 6:18 PM CDT Tigre Lucia MD LAB MICROBIOLOGY - GENER AL ORDERABLES Final Result [facility] [place] [address] * DIAGNOSTIC MAMMOGRAM BILATERAL W QUIQUE (11/18/2014 11:02 AM HAND INSPECTOR) Anatomical Region Laterality Modality Breast Bilateral Mammography 11/18/2014 11:0 2 AM HAND INSPECTOR Narrative 11/19/2014 10:39 PM HAND INSPECTOR Acc#: [id number] - Screening Mamm W Quique Bi DATE OF EXAM: Nov 18 2014 11:02AM DIAGNOSIS: SCREEN MAMMOGRAPHY NEC CLINICAL HISTORY: SCREENING RESULT: \ BREAST SCREENING, DIGITAL WITH CAD AND TOMOSYNTHESIS, BILATERAL COMPARISON: Comparison is made to 07/28/2011 screening mammographic exam performed at [facility]. This comparison was performed via Clinical Desktop. FINDINGS: Breasts are extremely dense. Parenchymal distribution is stable. There are no nodules or mass lesions, although breast density can limit assessment. There are no suspicious calcification clusters or distortion. IMPRESSION: CATEGORY 2-BENIGN. IMPRESSION OF OVERALL ASSESSMENT CATEGORY 2-BENIGN TECHNOLOGIST: JUWAN HANNAH TECHNOLOGIST [facility]ICAL [facility]SING [facility] SOCIAL WORKER: PW2 TRANSCRIBE DATE/TIME: Nov 18 2014 4:18P RADIOLOGIST: JOSELIN LONG M.D. READ ON: Nov 18 2014 2:02P ORDERING DR: JANET BOURGEOIS M.D. THIS DOCUMENT HAS BEEN ELECTRONICALLY SIGNED BY: JOSELIN LONG M.D. ON: Nov 19 2014 10:39P Requesting Procedure Note Provider, MD Polo - 03/20/2017 Acc#: [id number] - Screening Mamm W Quique Bi DATE OF EXAM: Nov 18 2014 11:02AM DIAGNOSIS: SCREEN MAMMOGRAPHY NEC CLINICAL HISTORY: SCREENING RESULT: \ BREAST SCREENING, DIGITAL WITH CAD AND TOMOSYNTHESIS, BILATERAL COMPARISON: Comparison is made to 07/28/2011 screening mammographic exam performed at [facility]. This comparison was performed via Clinical Desktop. FINDINGS: Breasts are extremely dense. Parenchymal distribution is stable. There are no nodules or mass lesions, although breast density can limit assessment. There are no suspicious calcification clusters or distortion. IMPRESSION: CATEGORY 2-BENIGN. IMPRESSION OF OVERALL ASSESSMENT CATEGORY 2-BENIGN TECHNOLOGIST: JUWAN HANNAH, TECHNOLOGIST MEDICAL [facility]SING [facility] SOCIAL WORKER: BETO TRANSCRIBE DATE/TIME: Nov 18 2014 4:18P RADIOLOGIST: JOSELIN LONG M.D. READ ON: Nov 18 2014 2:02P ORDERING DR: JANET BOURGEOIS M.D. THIS DOCUMENT HAS BEEN ELECTRONICALLY SIGNED BY: JOSELIN LONG M.D. ON: Nov 19 2014 10:39P Requesting Historical Provider IMG MAMMO PROCEDURES Kellie l Result * COLONOSCOPY (08/21/2011) Colonoscopy Normal Historical Provider HEALTH MAINTENANCE Final Result from Last 3 Months or Most Recently Relevant to Health Maintenance Insurance [facility] CHOICE PLUS [facility] Advance Directives For more information, please contact: [phone] * Full Code (Latest Code Status on File) Date Activated Date Inactivated Comments 08/29/2024 8:04 PM 09/05/2024 9:28 PM * Full Code Date Activated Date Inactivated Comments 08/28/2024 1:27 PM 08/29/2024 5:17 AM * Full Code Date Activated Date Inactivated Comments 12/28/2023 9:19 PM 01/04/2024 7:41 PM * Full Code Date Activated Date Inactivated Comments 12/27/2023 1:19 PM 12/27/2023 4:06 PM Care Teams Tile Helper Relationship Specialty [place] [id number] [facility] [address] [place] [address] PCP - General Internal Medicine 08/27/17 [place] [id number] [address] Rheumatology 08/09/17
--- OUTSIDE RECORDS SUMMARY | 2025-01-22 12:07 | XMS_ITS | Data Portability ---
Author Organization [facility] [place] Address [address] [place] [address] Care Team Providers Care Assistant Public Defender Name Role Phone HARJINDERSALLIE SWENSON Primary Care Provider Assessment Encounter Date Assessment Date Assessment LastModified by Organization Details LastModified Time 08/09/2022 08/09/2022 Annual gynecological exam performed. Patient will come back in a year unless there are new symptoms. Not available 08/09/2022 16:13:13 Plan of Treatment Reminders Order Date Submit Date Provider Last Modified By Organization Details Last Modified Time Details Appointments None record ed. Lab None record ed. Referral None record ed. Procedures None record ed. Surgeries None record ed. Imaging None record ed. Medication Orders None record ed. Patient TargetsNo targets recorded. Patient InstructionsNo instructions recorded. Reason for Referral None Reported. Results Created Date Observation Date Name Description Value Unit Range Abnormal Flag Note LastModifiedBy Organization Detail LastModifiedTime 08/09/20 22 08/09/2022 IMAGE GUIDE D PAP AND HPV REGAR DLESS image guided Pap, HPV regardless of Pap result SEE RESULT S BELOW CASE REPOR T: Cytol ogy Gynec ologi nayeli Repor t Case: [id number] Autho curry shaw Provi jefferson: Keron Vences Colle cted: 08/09 1620 SITE ACQUISITION MANAGER Order ing Locat ion: [place] [facility] Recei christopher: 08/10 0014 First Scree n: Nacha mpass ak, Sivil ay, CT Speci men: Scree diallo Pap - Image d, Vagin a STATE MENT OF ADEQU ACY: Satis facto ry for evalu ation FINAL DIAGN OSIS: Negat vik for Intra epith elial Lesio n or Foreigngautam adolfo (NIL) . Elect dannieholger bacon d by Roxanne varela, Lilia moody, CT on 2021 at 1:52 PM ----- ----- ----- ----- ----- ----- ----- ----- ----- ----- ----- ----- ----- ----- ----- ----- ----- ---- HPV RESUL TS: HPV mRNA E6/E7 : No HPV mRNA Detec noy NOTE: This high risk HPV mRNA assay detec ts fourt een high- risk HPV types (16, 18, 31, 33, 35, 39, 45, 51, 52, 56, 58, 59, 66, 68) witho ut diffe renti ation . COMME NT: Note: This speci men was revie wed by a Cytot echno logis t and/o r Patho logis t (as indic ated in this repor t) after evalu ation using the Thinp rep Imagi ng Syste m. CLINI NAYELI INFOR MATIO N: Menst rual Statu s: Parti al Hyste recto my LMP (if appli cable ): Clini nayeli Histo ry/Pr eviou s Pap: Type of Neopl dayan (if appli cable ): Signi fican t Clini nayeli Findi ngs: Other Histo ry: Gyne Sourc e: Vagin al Hormo navjot (if appli cable ): PAP EDUCA CLIFF L NOTE: The Pap Test is a scree diallo test with an inher ent false negat vik rate. Liqui d-bas ed sampl ing may decre ase, but will not elimi joce, false negat vik resul ts. A negat vik resul t does not precl ude the prese nce and/o r devel opmen t of disea se, since the prese nce of abnor mal cells in the sampl e depen ds on the locat ion of the lesio n and sampl ing techn ique. Daly nued regul ar scree diallo is the best metho d of cance r preve ntion . If repor noy cytol ogic findi ng do not corre late with physi nayeli and/o r histo rical findi ngs, furth er inves tigat ion is recom daniela d, as clini ale hoang nted. Not Available [facility] [address] [place], [address], 08/14/2022 14:54:50 Result Notes None recorded. Problems Name Problem SNOMED Code Status Onset Date Resolution Date Notes Provider Name and Address Organization Details Recorded Time Pregnanc y test negative 566913384 Completed 201107/17/2012 Pregnanc y examinat ion or test, negative result;R ecorded Elsewher e: No Locat ion: [facility] S ource: EHR Connie Scratcher taniya: N Tigist ce ID: 0001 Charan lable Time: 09:30:[address] [facility] 2 12:25:05 Iron deficien cy anemia [id number] Completed 201107/19/2022 Anemia, Iron Deficien cy;Recor ded Elsewher e: No Locat ion: [facility] S ource: EHR Connie Scratcher taniya: N Aniti ce ID: 0001 Charan lable Time: 03:45:[address] [facility] 2 12:25:05 Insertio n of intraute rine contrace ptive device Completed 201107/17/2012 INSERTIO N OF IUD;Miguelito rded Elsewher e: No Locat ion: [facility] S ource: EHR Connie Scratcher taniya: N Aniti ce ID: 0001 Charan lable Time: 08:00:00 AM Not Available [facility] 0 16:34:06 Atypical glandula r cells on cervical Papanico laou smear [id number] Completed 201107/19/2022 Abnormal glandula r Papanico laou smear of cervix;R ecorded Elsewher e: No Locat ion: [facility] S ource: EHR Connie Scratcher taniya: N Practi ce ID: 0001 Charan lable Time: 09:30:00 AM Marylin [facility], [facility] 2 12:25:05 Malaise and fatigue [id number] Completed 201207/19/2022 Fatigue / Malaise; Recorded Elsewher e: No Locat ion: [facility] S ource: EHR Connie Scratcher taniya: N Practi ce ID: 0001 Charan lable Time: 09:00:00 AM Marylin [facility], [facility] 2 12:25:05 Speciali tom medical examinat ion Completed 201107/19/2022 Routine gynecolo gical examinat ion;Prac sandy ID: 0001 Marylin [facility] 2 12:25:05 Screenin g for malignan t neoplasm of cervix Completed 201107/19/2022 Pap Smear;Pr actice ID: 0001 Marylin [facility], [facility] 2 12:25:05 Screenin g for malignan t neoplasm of rectum Completed 201107/19/2022 Screenin g for malignan t neoplasm s of the rectum;P ractice ID: 0001 Marylin [facility], [facility] 2 12:25:05 Dysfunct ional uterine bleeding Completed 201107/19/2022 DUB;Prac sandy ID: 0001 Marylin [facility], [facility] 2 12:25:05 Menstrua tion finding Completed 201107/19/2022 Menorrha radu Excessiv e Menstrua tion;Pra ctice ID: 0001 Marylin [facility], [facility] 2 12:25:05 Pregnanc y test negative [id number] Completed 201107/19/2022 Negative Pregnanc y Test;Pra ctice ID: [address] [facility] 2 12:25:05 Dysmenor salvador [id number] Completed 201207/19/2022 Dysmenor salvador;Pra ctice ID: [address] [facility] 2 12:25:05 Atypical glandula r cells on vaginal Papanico laou smear 569928378 Completed 201207/19/2022 Ab Vagina Pap;Prac sandy ID: 0001 [facility] 2 12:25:05 Anemia of chronic disease 803868289 Completed 201207/19/2022 Anemia in chronic illness; Practice ID: 0001 [facility] 2 12:25:05 Cyst of ovary [id number] Completed 201207/19/2022 OVARIAN CYST;Pra ctice ID: 0001 [facility] 2 12:25:05 Problem Notes None recorded. Procedures Surgical History Date Name Laterality Status Provider Name and Address Organization Details Recorded Time 11/19/19 18 completed [facility] 08/09/2022 16:14:42 11/19/19 18 Date of Last Colonoscopy completed [facility] 08/09/2022 16:14:42 11/19/19 17 Date of Last Mammogram completed [facility] 08/09/2022 16:14:42 06/12/20 12 endometrial biopsy completed [facility] 07/19/2022 15:11:56 Other completed [facility] 08/09/2022 16:14:52 Cholecystectomy completed [facility] 08/09/2022 16:14:52 Tubal Ligation completed [facility] 08/09/2022 16:14:52 Partial Hysterectomy completed [facility] 08/09/2022 16:14:52 Imaging Results None recorded. Procedure Notes None recorded. Medical Equipment None Reported. Allergies No known drug allergies Medications Name Sig Start Date Stop Date Status Note LastModified by Organization Details LastModified Time cyclobenz aprine 10 mg tablet TAKE 1 TABLET BY MOUTH EVERY DAY NEEDED FOR MUSCLE SPASM active Not Available Not Available No t Available Mirena 21 mcg/24 hr (up to 8 years) 52 mg intrauter ine device 08/09 completed Prescrib ed Elsewher e: No [facility] By: swati black DateTime : 07/17/20 12 08:00:00 AM Not Available Not Available Not Available ibuprofen 800 mg tablet TAKE 1 TABLET BY MOUTH EVERY 8 TO 12 HOURS NEEDED FOR FEVER OR PAIN active Not Available Not Available No t Available hydrocodo ne 5 mg-acetam inophen 325 mg tablet TAKE 1 TABLET BY MOUTH EVERY 6 HOURS FOR 3 DAYS NEEDED FOR PAIN active Not Available Not Available No t Available dextroamp hetamine- amphetami ne 10 mg tablet TAKE 1 TABLET BY MOUTH TWICE DAILY 4 TO 6 HOURS APART 08/09 completed Not Available Not Available Not Available ciproflox acin 500 mg tablet TAKE 1 TABLET BY MOUTH EVERY 12 HOURS 08/09 completed Not Available Not Available Not Available Vitamins B Complex capsule 01/16 completed [facility] ed Elsewher e: Yes [facility] By: swati black DateTime : 06/12/20 12 09:30:00 AM Not Available Not Available Not Available tramadol 50 mg tablet TAKE 1 TABLET BY MOUTH EVERY 6 HOURS NEEDED FOR PAIN active Not Available Not Available No t Available bupropion HCl 100 mg tablet active Not Available Not Available No t Available alprazola m 0.5 mg tablet TAKE 1 TABLET BY MOUTH DAILY NEEDED FOR ANXIETY active Not Available Not Available No t Available Metrogel Vaginal 0.75 % (37.5 mg/5 gram) insert 1 applicat orful (37.5MG) by vaginal route every day at bedtime 08/09 completed Prescrib ed Elsewher e: No Locat ion: [facility] odify By: casandra black DateTime : 02/13/20 13 03:15:00 PM Not Available Not Available Not Available Prilosec 10 mg capsule,d elayed release take 2 capsule by oral route every day before a meal 06/26 completed Prescrib ed Elsewher e: Yes Loca tion: [facility] odify By: swati black DateTime : 06/12/20 12 09:30:00 AM Not Available Not Available Not Available dextroamp hetamine- amphetami ne 15 mg tablet TAKE 1 TABLET BY MOUTH TWICE DAILY 4 TO 6 HOURS APART active Not Available Not Available No t Available methylpre dnisolone 4 mg tablets in a dose pack FOLLOW PACKAGE DIRECTIO NS 08/09 completed Not Available Not Available Not Available albuterol sulfate HFA 90 mcg/actua tion aerosol inhaler INHALE 2 PUFFS BY MOUTH EVERY 4 HOURS NEEDED FOR SHORTNES S OF BREATH OR WHEEZING active Not Available Not Available No t Available Vitamin D2 1,250 mcg (50,000 unit) capsule take 1 capsule by oral route every week 01/16 completed Prescrib ed Elsewher e: Yes Loca tion: [facility] odify By: swati black DateTime : 06/26/20 12 10:00:00 AM Not Available Not Available Not Available Aspirin Low-Stren gth 81 mg chewable tablet chew 1 tablet by oral route every day 01/16 completed Prescrib ed Elsewher e: Yes [facility] By: swati black DateTime : 06/12/20 12 09:30:00 AM Not Available Not Available Not Available Vitamins and Minerals tablet 01/16 completed Prescrib ed Elsewher e: Yes [facility] By: swati black DateTime : 06/12/20 12 09:30:00 AM Not Available Not Available Not Available iron ER 325 mg (65 mg iron) capsule,e xtended release 01/16 completed Prescrib ed Elsewher e: Yes Loca tion: [facility] odify By: swati black DateTime : 06/12/20 12 09:30:00 AM Not Available Not Available Not Available naltrexon e active Not Available Not Available Not Available cyclobenz aprine 08/09 completed Not Available Not Available Not Available Adderall (15mg) 08/09 completed Not Available Not Available Not Available Nuvigil 50 mg tablet 06/12 completed Prescrib ed Elsewher e: Yes Loca tion: [facility] odify By: swati black DateTime : 05/21/20 12 03:45:00 PM Not Available Not Available Not Available Zantac 50 mg/2 mL (25 mg/mL) injection solution infuse by intraven ous route every 8 hours over 01/16 completed Prescrib ed Elsewher e: Yes Loca tion: [facility] odify By: swati black DateTime : 06/26/20 12 10:00:00 AM Not Available Not Available Not Available Aleve 220 mg capsule 01/16 completed Prescrib ed Elsewher e: Yes Loca tion: [facility] odify By: swati black DateTime : 06/26/20 12 10:00:00 AM Not Available Not Available Not Available Vitals Date Recorded Body height Body weight Provider Name and Address Organization Details Last Updated DateTime 08/09/2022 157.48 cm 99297.07 g Marylin Hartman [facility] 08/09/2022 16:13:59 Date Recorded Systolic blood pressure Diastolic blood pressure Provider Name and Address Organization Details Last Updated DateTime 08/09/2022 122 mm[Hg] 76 mm[Hg] Josefina Sapp, [facility]- [address], [place], [address], [facility] 08/09/2022 16:33:24 Social History Question Answer Notes LastModified by Organizat ion Details LastModified Time Tobacco Smoking Status Never Smoker Marylin [facility] 08/09/2022 16:18:39 Do You Have An Advance Directive? No Information not available 08/09/2022 What Is Your Level Of Alcohol Consumption? Occasional Information not available 08/09/2022 Are You Blind Or Do You Have Difficulty Seeing? No Information not available 08/09/2022 What Is Your Level Of Caffeine Consumption? Occasional Information not available 08/09/2022 How Much Tobacco Do You Chew? None Information not available 08/09/2022 In The 14 Days Before Symptom Onset, Have You Had Close Contact With A Laboratory-confir med COVID-19 While That Case Was Ill? No Information not available 08/09/2022 In The 14 Days Before Symptom Onset, Have You Had Close Contact With A Person Who Is Under Investigation For COVID-19 While That Person Was Ill? No Information not available 08/09/2022 Have You Been To An Area Known To Be High Risk For COVID-19? No Information not available 08/09/2022 Are You Deaf Or Do You Have Serious Difficulty Hearing? No Information not available 08/09/2022 What Type Of Diet Are You Following? REGULAR Information not available 08/09/2022 What Is The Highest Grade Or Level Of School You Have Completed Or The Highest Degree You Have Received? 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 No Information not available 08/09/2022 Do You Use Protection During Sex? No Information not available 08/09/2022 Do You Use Your Seat Belt Or Car Seat Routinely? Yes Information not available 08/09/2022 Do You Have Smoke And Carbon Monoxide Detectors In Your Home? Yes Information not available 08/09/2022 How Much Tobacco Do You Smoke? No Information not available 08/09/2022 Do You Feel Stressed (tense, Restless, Nervous, Or Anxious, Or Unable To Sleep At Night)? [id number] Information not available 08/09/2022 Do You Use Any Illicit Or Recreational Drugs? No Information not available 08/09/2022 Do You Use Sunscreen Routinely? Yes Information not available 08/09/2022 Have You Used IV Drugs? No Information not available 08/09/2022 Sex: Unknown Functional Status Question Answer Note LastModified by Organizat ion Details LastModified Time Do you have difficulty walking or climbing stairs? No Information not available 08/09/2022 Are you able to walk? YESWOREST Information not available 08/09/2022 Are you able to care for yourself? Yes Information not available 08/09/2022 Do you have difficulty dressing or bathing? No Information not available 08/09/2022 What is your exercise level? Occasional Information not available 08/09/2022 Mental Status None recorded. Family History Relationship Description Onset Age of this Age Resolved Age Notes LastModified by Organization Details LastModified Time Father Hypertensive disorder Not available 2021 16:14:35 Father Myocardial infarction Not available 08/09 16:14:35 Mother Anxiety disorder Not available 2021 16:14:35 Mother Osteoporosis Not availab le 08/09/2022 16:14:35 Mother Depressive disorder Not available 2021 16:14:35 Medical History Condition Response Anxiety Disorder Y Anemia Y Arthritis Y Blood Transfusion Y Hematologic disorders Y History of abnormal pap Y Headaches Y Fibromyalgia Y Kidney or Bladder Problems Y Gynecological History Statement/Question Response Abnormal Pap Y Date of Last Mammogram 11/19/2016 On BCP's at Conception? N N Was last menstrual period normal N STIs/STDs N HPV Vaccine N Duration of Flow (days) 5 Current Control Method Hysterectom y Age at First Child 19 Date of Last Colonoscopy 11/19/2017 Frequency of Cycle (Q days) 6 Sexually Active? Y Menses Monthly N Age of first menstrual cycle 13 Date of Last Pap Smear Sexual Problems? N LMP Unknown 11/19/2017 N 11/19/2011 Obstetrics History GPAL:G 6 P 0 0 2 4 Type Value Spontaneous 2 Living 4 Total 6 Past Encounters Encounter ID Performer Location Encounter Start Date Encounter Closed Date Diagnosis/Indication Diagnosis SNOMED-CT Code Diagnosis ICD10 Code Diagnosis Note [id number] Josefina Sapp , [facility] [address] [address] 08/09/2022 15:58:21 08/09/2022 16:54:35 Gynecologic examination 75347382 Z01.419 Z11.51 Take Calcium with Vitamin D 12-1500mg daily. Do monthly self breast exams. It is advised to get annual flu shot in the fall and she could obtain at [facility] or [facility] clinic. If you haven't received the Tdap vaccine in the last 10 years you should obtain one as well. Have mammogram yearly, bone density every 2-3 years and colonoscop y every 5-10 years depending on findings and history. Engage in daily exercise of low impact aerobic exercise 45-60 minutes 4-5 times weekly. Avoid tobacco and illicit drugs as well as using moderation with alcohol intake less than 1-2 8 oz beverages daily. This lifestyle behavior pattern will lead to less health conditions and longer life span. If BMI greater than 25 weight watchers or dietary consult advised. Questions have been answered. Patient appears to understand instructio ns, but if you have any further questions call or respond to this email Pap/hpv sent (uncertain if hysterecto my was simply done for management of heavy cycles or abn pap Hx. We decided to pursue pap/hpv testing vag cuff since no pap since Hyst completed 2012. STD Screen declined Genetic Screen discussed Colon Screen PCP Dexa Screen PCP Routine Labs PCPMammo ordered Health Concerns Section Related Observation LastModified by Organization Detai ls LastModified Time None Recorded Concern Status LastModified by Organization Details LastModified Time None Recorded Advance Directives Directive N: Payers Encounter Date Sequence Insurance Name Policy Number Policy Vergara Covered Member ID Vergara Member ID Guarantor Name 08/09/2022 1 [facility] Gayla Alfaro [id number] Gayla Alfaro Notes Date Note Type Note Provider Name and Address Organization Details Recorded Time 08/09/2022 text/html Annual Administrative Project Coordinator Post-MenopausalRe ported bypatient.Menopau helene Symptoms:normal vaginal lubrication;hot flashes(Inconsist ent HF lasted on/off x 3mos then stopped. Triggered by heat.) Vaginal Bleeding:history of menopause having occurred; no history of post menopausal bleeding Urinary Symptoms:no hematuria; no incontinence; no nocturia; no urinary frequency Vulva:no genital lesion; no vulvar atrophy Vagina:normal vaginal discharge; no vaginal atrophy Breast:no breast lump; no nipple discharge; no breast pain Sexual Complaints:no sexual complaints Psychological Symptoms:no depression; no anxiety Preventive Measures:encourag e regular mammograms starting age 40; encourage self breast examination; encourage regular exercise; encourage no tobacco use; needs to schedule mammogram; history of recent colonoscopy Josefina Sapp, [facility]- [address], [place], [address], [facility] 08/09/2022 16:48:28 OBGyn Episode Ob Episode Information Episode Created Date Number of Fetuses Patient Bloodtype Patient rh Status Prepregnancy Weight lbs Domestic Partner Domestic Partner Phone Father Name Configuration Technician Status 08/09/20 22 1 CLOSED Fetus Data First Name Last Name Admitted to NICU Weight (g) Sex Living Outcome Pediatric Complications Fetus ID Race Codes Race Delivery Type , Spontane ous [id number] Efren Calculation Initial Efren Date Initial Exam Date Initial Exam Provider Initial Ultrasound Date Last Menstrual Period Date Ultra Sound Weeks Gestation 0 Eighteen To Twenty Week Efren Update Ultra Sound Date Fundal Height At Umbil Quickening Date Ultra Sound Latest Weeks Gestation Final Efren Confirmed By Final Efren Confirmed Date Final Efren Date Ultra Sound Latest Days Gestation 0 0 Menstrual History Last Menstrual Date Menses Monthly On Bcp Conception Prior Menses Frequency Hcg Plus Date Menarche Onset Age Delivery Information Delivery Date Delivery Type Labor Anesthesia Weeks Gestation Incision Type Labor Labor Length Hrs Delivered By Post Complications Tubal Sterilization Discharge Date Comments 1 Discharge Information Feeding Method Contraceptive Method Maternal HG B and HCT Levels Ob Episode Information Episode Created Date Number of Fetuses Patient Bloodtype Patient rh Status Prepregnancy Weight lbs Domestic Partner Domestic Partner Phone Father Name Configuration Technician Status 08/09/20 22 1 CLOSED Fetus Data First Name Last Name Admitted to NICU Weight (g) Sex Living Outcome Pediatric Complications Fetus ID Race Codes Race Delivery Type M [id number] Vaginal Delivery Efren Calculation Initial Efren Date Initial Exam Date Initial Exam Provider Initial Ultrasound Date Last Menstrual Period Date Ultra Sound Weeks Gestation 0 Eighteen To Twenty Week Efren Update Ultra Sound Date Fundal Height At Umbil Quickening Date Ultra Sound Latest Weeks Gestation Final Efren Confirmed By Final Efren Confirmed Date Final Efren Date Ultra Sound Latest Days Gestation 0 0 Menstrual History Last Menstrual Date Menses Monthly On Bcp Conception Prior Menses Frequency Hcg Plus Date Menarche Onset Age Delivery Information Delivery Date Delivery Type Labor Anesthesia Weeks Gestation Incision Type Labor Labor Length Hrs Delivered By Post Complications Tubal Sterilization Discharge Date Comments 7 Discharge Information Feeding Method Contraceptive Method Maternal HG B and HCT Levels Ob Episode Information Episode Created Date Number of Fetuses Patient Bloodtype Patient rh Status Prepregnancy Weight lbs Domestic Partner Domestic Partner Phone Father Name Configuration Technician Status 08/09/20 22 1 CLOSED Fetus Data First Name Last Name Admitted to NICU Weight (g) Sex Living Outcome Pediatric Complications Fetus ID Race Codes Race Delivery Type F [id number] Vaginal Delivery Efren Calculation Initial Efren Date Initial Exam Date Initial Exam Provider Initial Ultrasound Date Last Menstrual Period Date Ultra Sound Weeks Gestation 0 Eighteen To Twenty Week Efren Update Ultra Sound Date Fundal Height At Umbil Quickening Date Ultra Sound Latest Weeks Gestation Final Efren Confirmed By Final Efren Confirmed Date Final Efren Date Ultra Sound Latest Days Gestation 0 0 Menstrual History Last Menstrual Date Menses Monthly On Bcp Conception Prior Menses Frequency Hcg Plus Date Menarche Onset Age Delivery Information Delivery Date Delivery Type Labor Anesthesia Weeks Gestation Incision Type Labor Labor Length Hrs Delivered By Post Complications Tubal Sterilization Discharge Date Comments 9 Discharge Information Feeding Method Contraceptive Method Maternal HG B and HCT Levels Ob Episode Information Episode Created Date Number of Fetuses Patient Bloodtype Patient rh Status Prepregnancy Weight lbs Domestic Partner Domestic Partner Phone Father Name Configuration Technician Status 08/09/20 22 1 CLOSED Fetus Data First Name Last Name Admitted to NICU Weight (g) Sex Living Outcome Pediatric Complications Fetus ID Race Codes Race Delivery Type M [id number] Vaginal Delivery Efren Calculation Initial Efren Date Initial Exam Date Initial Exam Provider Initial Ultrasound Date Last Menstrual Period Date Ultra Sound Weeks Gestation 0 Eighteen To Twenty Week Efren Update Ultra Sound Date Fundal Height At Umbil Quickening Date Ultra Sound Latest Weeks Gestation Final Efren Confirmed By Final Efren Confirmed Date Final Efren Date Ultra Sound Latest Days Gestation 0 0 Menstrual History Last Menstrual Date Menses Monthly On Bcp Conception Prior Menses Frequency Hcg Plus Date Menarche Onset Age Delivery Information Delivery Date Delivery Type Labor Anesthesia Weeks Gestation Incision Type Labor Labor Length Hrs Delivered By Post Complications Tubal Sterilization Discharge Date Comments 7 Discharge Information Feeding Method Contraceptive Method Maternal HG B and HCT Levels Ob Episode Information Episode Created Date Number of Fetuses Patient Bloodtype Patient rh Status Prepregnancy Weight lbs Domestic Partner Domestic Partner Phone Father Name Configuration Technician Status 08/09/20 22 1 CLOSED Fetus Data First Name Last Name Admitted to NICU Weight (g) Sex Living Outcome Pediatric Complications Fetus ID Race Codes Race Delivery Type M [id number] Vaginal Delivery Efren Calculation Initial Efren Date Initial Exam Date Initial Exam Provider Initial Ultrasound Date Last Menstrual Period Date Ultra Sound Weeks Gestation 0 Eighteen To Twenty Week Efren Update Ultra Sound Date Fundal Height At Umbil Quickening Date Ultra Sound Latest Weeks Gestation Final Efren Confirmed By Final Efren Confirmed Date Final Efren Date Ultra Sound Latest Days Gestation 0 0 Menstrual History Last Menstrual Date Menses Monthly On Bcp Conception Prior Menses Frequency Hcg Plus Date Menarche Onset Age Delivery Information Delivery Date Delivery Type Labor Anesthesia Weeks Gestation Incision Type Labor Labor Length Hrs Delivered By Post Complications Tubal Sterilization Discharge Date Comments 4 Discharge Information Feeding Method Contraceptive Method Maternal HG B and HCT Levels Ob Episode Information Episode Created Date Number of Fetuses Patient Bloodtype Patient rh Status Prepregnancy Weight lbs Domestic Partner Domestic Partner Phone Father Name Configuration Technician Status 08/09/20 22 1 CLOSED Fetus Data First Name Last Name Admitted to NICU Weight (g) Sex Living Outcome Pediatric Complications Fetus ID Race Codes Race Delivery Type , Spontane ous [id number] Efren Calculation Initial Efren Date Initial Exam Date Initial Exam Provider Initial Ultrasound Date Last Menstrual Period Date Ultra Sound Weeks Gestation 0 Eighteen To Twenty Week Efren Update Ultra Sound Date Fundal Height At Umbil Quickening Date Ultra Sound Latest Weeks Gestation Final Efren Confirmed By Final Efren Confirmed Date Final Efren Date Ultra Sound Latest Days Gestation 0 0 Menstrual History Last Menstrual Date Menses Monthly On Bcp Conception Prior Menses Frequency Hcg Plus Date Menarche Onset Age Delivery Information Delivery Date Delivery Type Labor Anesthesia Weeks Gestation Incision Type Labor Labor Length Hrs Delivered By Post Complications Tubal Sterilization Discharge Date Comments 2 Discharge Information Feeding Method Contraceptive Method Maternal HG B and HCT Levels
--- OUTSIDE RECORDS SUMMARY | 2025-01-22 12:07 | XMS_ITS | Clinical Summary ---
Author Organization [facility] Address [address] [place] [address] Phone Care Team Providers Care Infrastructure Solutions Architect Name Role Phone Ann Marcum MD Primary Care Provider [phone] Allergies No known active allergies Medications cyclobenzaprine (FLEXERIL) 10 MG Tablet Take 10 mg by mouth 3 times daily as needed. 07/13/2016 Active HYDROcodone-acet aminophen (NORCO) 10-325 MG Tablet Take 1 Tab by mouth every 6 hours as needed for Pain. 20 Tab 0 08/07/2016 Active Social History Tobacco Use Types Packs/Day Years Used Date Smoking Tobacco: Former Alcohol Use Standard Drinks/Week Comments No 0 (1 standard drink = 0.6 oz pur e alcohol) Comments No Sex and Gender Information Value Date Recorded Sex Assigned at Not on file Legal Sex Female 8:58 PM CDT Gender Identity Not on file Sexual Orientation Not on file Last Filed Vital Signs Vital Sign Reading Time Taken Comments Blood Pressure 122/72 08/07/2016 2:24 PM CDT Pulse 94 08/07/2016 2:24 PM CDT Temperature 36.9 C (98.4 F) 08/07/2016 2:24 PM CDT Respiratory Rate 17 08/07/2016 2:24 PM CDT Oxygen Saturation 97% 08/07/2016 2:24 PM CDT Inhaled Oxygen Concentration - - Weight 74.4 kg (164 lb) 08/07/2016 2:24 PM CDT Height 162.6 cm (5' 4 ) 08/07/2016 2:24 PM CDT Body Mass Index 28.15 08/07/2016 2:24 PM CDT Plan of Treatment Not on file Care Teams Infrastructure Solutions Architect Relationship Specialty Start Date End Date Ann Marcum MD [address] [employer] [address] PCP - General Internal Medicine 08/07/16
--- OUTSIDE RECORDS SUMMARY | 2025-01-22 12:07 | XMS_ITS | Clinical Summary ---
Author Organization [facility] Address [address] [place] [address] Care Team Providers Care Diesel Truck Technician Name Role Phone Unavailable Primary Care Provider Unavailabl e Source Comments [facility],non-owned Affiliates and Associated Physician Practices is amultiple site organization consisting of ambulatory clinics and hospital sitesin [place], [place], [place] and [place]. This disclosure is being madepursuant to the Care Everywhere program and may not contain all information available regarding this patient. Last updated 18.[facility] Allergies No known active allergies Medications * Be aware that medications may not be up to date on this document. Alwaysverify current medications with the patient. Medication Sig Dispensed Refills Start Date End Date Status Iron Combinations (IRON COMPLEX PO) Active Ibuprofen & Caffeine-Vitamins 400 MG KIT Active aspirin 81 MG chew tablet Active Active Problems Problem Noted Date Diagnosed Date Preoperative examination 03/29/2010 Low back pain 02/07/2010 Overview (09/26/2015): Family History Medical History Relation Name Comments Stroke Father Cancer Maternal Grandfather Cancer Maternal Grandmother Arthritis - Osteo Mother Migraine Mother Migraine Sister 4 Relation Name Status Comments Brother 1 Alive Brother 2 stroke patient Father Alive Maternal Grandfather Maternal Grandmother Mother Alive COPD Sister 1 Alive Sister 2 Alive Sister 3 Alive Sister 4 Social History Tobacco Use Types Packs/Day Years Used Date Smoking Tobacco: Former Cigarettes 0.5 17 Alcohol Use Standard Drinks/Week Comments Yes 0 (1 standard drink = 0.6 oz pur e alcohol) rare Sex and Gender Information Value Date Recorded Sex Assigned at Not on file Gender Identity Not on file Sexual Orientation Not on file Last Filed Vital Signs Vital Sign Reading Time Taken Comments Blood Pressure 138/78 06/17/2012 12:18 PM CDT Pulse 66 06/17/2012 12:18 PM CDT Temperature 36.9 C (98.4 F) 03/31/2010 3:33 PM CDT Respiratory Rate 16 06/17/2012 12:18 PM CDT Oxygen Saturation 100% 06/17/2012 12:18 PM CDT Inhaled Oxygen Concentration - - Weight 71.9 kg (158 lb 8.2 oz) 03/31/2010 12:01 AM CDT Height 162.6 cm (5' 4 ) 03/30/2010 6:30 AM CDT Body Mass Index 27.21 03/30/2010 6:30 AM CDT Plan of Treatment Health Maintenance Due Date Last Done Comments COLOGUARD (AGES 45-75) - COL ON CA SCREENING 1970 COLON MONITORING 1970 COLONOSCOPY - COLON CA SCREENING 1970 CT COLONOGRAPHY - COLON CA SCREENING 1970 Colorectal Cancer Screening 1970 FIT - COLON CA SCREENING 1970 FLEX SIG - COLON CA SCREENING 1970 LIPID TESTING 1970 MAMMOGRAM 1970 PAP SMEAR 1970 HIV SCREENING 1985 HEPATITIS C SCREENING 12/18/1988 DTAP/TDAP/TD VACCINES (1 - Tdap) 1989 HEPATITIS B VACCINE (1 of 3 - 19+ 3-dose series) 1989 PNEUMOCOCCAL VACCINE 50+ (1 of 1 - PCV) 2020 ZOSTER VACCINE (1 of 2) 2020 COVID-19 VACCINE ( - 2023-2 5 season) 2024 INFLUENZA VACCINE (#1) 2024 5, 09/14/2014 DEPRESSION SCREENING 11/19/2024 HIB VACCINE Aged Out No longer eligi ble based on patient's age to complete this topic HPV VACCINE Aged Out No longer eligi ble based on patient's age to complete this topic MENINGOCOCCAL (Group B) VACCINE Aged Out No longer eligible b ased on patient's age to complete this topic MENINGOCOCCAL VACCINE Aged Out No gladys elenita eligible based on patient's age to complete this topic PNEUMOCOCCAL VACCINE Aged Out No long er eligible based on patient's age to complete this topic Advance Directives * Full Code (Latest Code Status on File) Date Activated Date Inactivated Comments 03/30/2010 12:57 PM 04/01/2010 3:32 PM
--- OUTSIDE RECORDS SUMMARY | 2025-01-22 12:07 | XMS_ITS | Patient Health Summary ---
Author Organization [facility] Address [address] [place] [address] Care Team Providers Care Flat Sorting Machine Clerk Name Role Phone Unavailable Primary Care Provider Unavailabl e Note from [facility],non-owned Affiliates and Associated Physician Practices is amultiple site organization consisting of ambulatory clinics and hospital sitesin [place], [place], [place] and [place]. This disclosure is being madepursuant to the Care Everywhere program and may not contain all information available regarding this patient. Last updated 18.[facility] tarpipe Allergies No known active allergies Medications * Be aware that medications may not be up to date on this document. Alwaysverify current medications with the patient. * Iron Combinations (IRON COMPLEX PO) * Ibuprofen & Caffeine-Vitamins 400 MG KIT * aspirin 81 MG chew tablet Active Problems Problem Noted Date Diagnosed Date Preoperative examination 03/29/2010 Low back pain 02/07/2010 Social History Tobacco Use Types Packs/Day Years [...] Mass Index 27.21 03/30/2010 6:30 AM CDT Procedures * XR CHEST 2VW(Performed 08/08/2017) Performed for Arthralgia, unspecified joint * XR SI JOINTS 2VW OR LESS(Performed 08/08/2017) Performed for Arthralgia, unspecified joint * XR HAND BILAT 2VW(Performed 08/08/2017) Performed for Arthralgia, unspecified joint * XR WRIST BILAT 2VW(Performed 08/08/2017) Performed for Arthralgia, unspecified joint * XR FOOT BILAT 2VW(Performed 08/08/2017) Performed for Arthralgia, unspecified joint * XR ANKLE BILAT 2VW(Performed 08/08/2017) Performed for Arthralgia, unspecified joint * IMAGING/RADIOLOGY/XRAY RESULTS ORDER(Performed 08/11/2016) * CARDIOLIPIN ANTIBODY IGA/IGG/IGM PANEL(Performed 08/06/2012) * LUPUS ANTICOAGULANT PANEL(Performed 08/06/2012) * CAMDEN VIPER VENOM DILUTE(Performed 08/06/2012) * PAIN MANAGEMENT PROCEDURE TIME(Performed 06/17/2012) Performed for Displacement of cervical intervertebral disc without myelopathy, Cervical spondylosiswithout myelopathy, Tension headache * PAIN MANAGEMENT PROCEDURE TIME(Performed 06/03/2012) Performed for Displacement of cervical intervertebral disc without myelopathy, Cervical spondylosiswithout myelopathy, Tension headache * PAIN MANAGEMENT PROCEDURE TIME(Performed 05/27/2012) Performed for Displacement of cervical intervertebral disc without myelopathy, Cervical spondylosiswithout myelopathy, Tension headache * XR SPINE SURVEY 2 VW(Performed 05/13/2012) Performed for Scoliosis * IMAGING/RADIOLOGY/XRAY RESULTS ORDER(Performed 05/02/2012) * D-DIMER(Performed 04/04/2012) * XR LUMBAR SPINE BENDING ONLY 2-3 VW(Performed 08/11/2010) Performed for LBP (low back pain) * XR LUMBAR SPINE 2 OR 3VW(Performed 07/07/2010) Performed for LBP (Low Back Pain) * XR LUMBAR SPINE 2 OR 3VW(Performed 05/26/2010) Performed for LBP (Low Back Pain) * XR LUMBAR SPINE 2 OR 3VW(Performed 03/31/2010) Performed for Preoperative Examination, Back Pain, Osteoarth NOS-Unspec, LBP (Low Back Pain) * XR LUMBAR SPINE 2 OR 3VW(Performed 03/30/2010) Performed for Back Pain * TYPE + SCREEN PANEL(Performed 03/30/2010) Performed for Osteoarth NOS-Unspec * HGB HCT PANEL(Performed 03/30/2010) Performed for Preoperative Examination * MRIO T SPINE WO CONT(Performed 03/10/2010) Performed for Pain in Thoracic Spine * MRIO C SPINE WO CONT(Performed 03/10/2010) Performed for Cervicalgia, Pain in Soft Tissues of Limb * CT LUMBAR SPINE WO CONTRAST(Performed 02/14/2010) Performed for Degeneration of Lumbar or Lumbosacral Intervertebral Disc, LBP (Low Back Pain) * IR DISCOGRAM LUMBAR(Performed 02/14/2010) Performed for Degeneration of Lumbar or Lumbosacral Intervertebral Disc, Lumbago * IMAGING/RADIOLOGY/XRAY RESULTS ORDER(Performed 01/13/2010) Results * XR HANDS BILATERAL 2 VIEWS (08/08/2017 5:01 PM CDT) Anatomical Region Laterality Modality Wrist / Hand, Upper Extremity Ra diographic Imaging 08/08/2017 5:12 PM CDT Impressions 08/08/2017 5:15 PM CDT 1. No fracture or acute process is identified on these ascites. 2. Negative for polyarthritis. Narrative 08/08/2017 5:15 PM CDT XR HANDS BILATERAL 2 VIEWS*[id number], BILATERAL AP AND LATERAL VIEWS XR SACROILIAC JOINTS < 3 VW*[id number], AP, RPO AND LPO VIEWS XR WRIST BILAT 2 VIEWS*[id number], BILATERAL PA AND LATERAL VIEWS XR FOOT BILAT 2 VIEWS*[id number], BILATERAL AP AND LATERAL VIEWS XR ANKLE BILAT 2 VIEWS*[id number], BILATERAL AP AND LATERAL VIEWS. HISTORY: Pain in unspecified joint COMPARISON: None. FINDINGS: There are no fracture, dislocation, suspicious intrinsic bony lesions, significant arthritic changes or suspicious soft tissue abnormalities on these studies. The carpal rows and the carpal joints are normal. The ankle mortise is within normal limits on each side. The postsurgical changes of previous laminectomy and posterior fusion at L5-S1 are noted. The sacroiliac joints and the hip joints appear normal and symmetric. Procedure Note Shankar Portillo MD - 08/08/2017 XR HANDS BILATERAL 2 VIEWS*[id number], BILATERAL AP AND LATERAL VIEWS XR SACROILIAC JOINTS < 3 VW*[id number], AP, RPO AND LPO VIEWS XR WRIST BILAT 2 VIEWS*[id number], BILATERAL PA AND LATERAL VIEWS XR FOOT BILAT 2 VIEWS*[id number], BILATERAL AP AND LATERAL VIEWS XR ANKLE BILAT 2 VIEWS*[id number], BILATERAL AP AND LATERAL VIEWS. HISTORY: Pain in unspecified joint COMPARISON: None. FINDINGS: There are no fracture, dislocation, suspicious intrinsic bony lesions, significant arthritic changes or suspicious soft tissue abnormalities on these studies. The carpal rows and the carpal joints are normal. The ankle mortise is within normal limits on each side. The postsurgical changes of previous laminectomy and posterior fusion at L5-S1 are noted. The sacroiliac joints and the hip joints appear normal and symmetric. IMPRESSION 1. No fracture or acute process is identified on these ascites. 2. Negative for polyarthritis. Leidy Melchor PA-C DIAGNOSTIC IMAGING O RDERABLES * XR FOOT BILAT 2 VIEWS (08/08/2017 5:01 PM CDT) Anatomical Region Laterality Modality Lower Extremity, Ankle / Foot Ra diographic Imaging 08/08/2017 5:12 PM CDT Impressions 08/08/2017 5:15 PM CDT 1. No fracture or acute process is identified on these ascites. 2. Negative for polyarthritis. Narrative 08/08/2017 5:15 PM CDT XR HANDS BILATERAL 2 VIEWS*[id number], BILATERAL AP AND LATERAL VIEWS XR SACROILIAC JOINTS < 3 VW*[id number], AP, RPO AND LPO VIEWS XR WRIST BILAT 2 VIEWS*[id number], BILATERAL PA AND LATERAL VIEWS XR FOOT BILAT 2 VIEWS*[id number], BILATERAL AP AND LATERAL VIEWS XR ANKLE BILAT 2 VIEWS*[id number], BILATERAL AP AND LATERAL VIEWS. HISTORY: Pain in unspecified joint COMPARISON: None. FINDINGS: There are no fracture, dislocation, suspicious intrinsic bony lesions, significant arthritic changes or suspicious soft tissue abnormalities on these studies. The carpal rows and the carpal joints are normal. The ankle mortise is within normal limits on each side. The postsurgical changes of previous laminectomy and posterior fusion at L5-S1 are noted. The sacroiliac joints and the hip joints appear normal and symmetric. Procedure Note Shankar Portillo MD - 08/08/2017 XR HANDS BILATERAL 2 VIEWS*[id number], BILATERAL AP AND LATERAL VIEWS XR SACROILIAC JOINTS < 3 VW*[id number], AP, RPO AND LPO VIEWS XR WRIST BILAT 2 VIEWS*[id number], BILATERAL PA AND LATERAL VIEWS XR FOOT BILAT 2 VIEWS*[id number], BILATERAL AP AND LATERAL VIEWS XR ANKLE BILAT 2 VIEWS*[id number], BILATERAL AP AND LATERAL VIEWS. HISTORY: Pain in unspecified joint COMPARISON: None. FINDINGS: There are no fracture, dislocation, suspicious intrinsic bony lesions, significant arthritic changes or suspicious soft tissue abnormalities on these studies. The carpal rows and the carpal joints are normal. The ankle mortise is within normal limits on each side. The postsurgical changes of previous laminectomy and posterior fusion at L5-S1 are noted. The sacroiliac joints and the hip joints appear normal and symmetric. IMPRESSION 1. No fracture or acute process is identified on these ascites. 2. Negative for polyarthritis. Leidy Melchor PA-C DIAGNOSTIC IMAGING O RDERABLES * XR WRIST BILAT 2 VIEWS (08/08/2017 5:01 PM CDT) Anatomical Region Laterality Modality Wrist / Hand, Upper Extremity Ra diographic Imaging 08/08/2017 5:12 PM CDT Impressions 08/08/2017 5:15 PM CDT 1. No fracture or acute process is identified on these ascites. 2. Negative for polyarthritis. Narrative 08/08/2017 5:15 PM CDT XR HANDS BILATERAL 2 VIEWS*[id number], BILATERAL AP AND LATERAL VIEWS XR SACROILIAC JOINTS < 3 VW*[id number], AP, RPO AND LPO VIEWS XR WRIST BILAT 2 VIEWS*[id number], BILATERAL PA AND LATERAL VIEWS XR FOOT BILAT 2 VIEWS*[id number], BILATERAL AP AND LATERAL VIEWS XR ANKLE BILAT 2 VIEWS*[id number], BILATERAL AP AND LATERAL VIEWS. HISTORY: Pain in unspecified joint COMPARISON: None. FINDINGS: There are no fracture, dislocation, suspicious intrinsic bony lesions, significant arthritic changes or suspicious soft tissue abnormalities on these studies. The carpal rows and the carpal joints are normal. The ankle mortise is within normal limits on each side. The postsurgical changes of previous laminectomy and posterior fusion at L5-S1 are noted. The sacroiliac joints and the hip joints appear normal and symmetric. Procedure Note Shankar Portillo MD - 08/08/2017 XR HANDS BILATERAL 2 VIEWS*[id number], BILATERAL AP AND LATERAL VIEWS XR SACROILIAC JOINTS < 3 VW*[id number], AP, RPO AND LPO VIEWS XR WRIST BILAT 2 VIEWS*[id number], BILATERAL PA AND LATERAL VIEWS XR FOOT BILAT 2 VIEWS*[id number], BILATERAL AP AND LATERAL VIEWS XR ANKLE BILAT 2 VIEWS*[id number], BILATERAL AP AND LATERAL VIEWS. HISTORY: Pain in unspecified joint COMPARISON: None. FINDINGS: There are no fracture, dislocation, suspicious intrinsic bony lesions, significant arthritic changes or suspicious soft tissue abnormalities on these studies. The carpal rows and the carpal joints are normal. The ankle mortise is within normal limits on each side. The postsurgical changes of previous laminectomy and posterior fusion at L5-S1 are noted. The sacroiliac joints and the hip joints appear normal and symmetric. IMPRESSION 1. No fracture or acute process is identified on these ascites. 2. Negative for polyarthritis. Leidy Melchor PA-C DIAGNOSTIC IMAGING O RDERABLES * XR ANKLE BILAT 2 VIEWS (08/08/2017 5:01 PM CDT) Anatomical Region Laterality Modality Ankle / Foot, Lower Extremity Ra diographic Imaging 08/08/2017 5:12 PM CDT Impressions 08/08/2017 5:15 PM CDT 1. No fracture or acute process is identified on these ascites. 2. Negative for polyarthritis. Narrative 08/08/2017 5:15 PM CDT XR HANDS BILATERAL 2 VIEWS*[id number], BILATERAL AP AND LATERAL VIEWS XR SACROILIAC JOINTS < 3 VW*[id number], AP, RPO AND LPO VIEWS XR WRIST BILAT 2 VIEWS*[id number], BILATERAL PA AND LATERAL VIEWS XR FOOT BILAT 2 VIEWS*[id number], BILATERAL AP AND LATERAL VIEWS XR ANKLE BILAT 2 VIEWS*[id number], BILATERAL AP AND LATERAL VIEWS. HISTORY: Pain in unspecified joint COMPARISON: None. FINDINGS: There are no fracture, dislocation, suspicious intrinsic bony lesions, significant arthritic changes or suspicious soft tissue abnormalities on these studies. The carpal rows and the carpal joints are normal. The ankle mortise is within normal limits on each side. The postsurgical changes of previous laminectomy and posterior fusion at L5-S1 are noted. The sacroiliac joints and the hip joints appear normal and symmetric. Procedure Note Shankar Portillo MD - 08/08/2017 XR HANDS BILATERAL 2 VIEWS*[id number], BILATERAL AP AND LATERAL VIEWS XR SACROILIAC JOINTS < 3 VW*[id number], AP, RPO AND LPO VIEWS XR WRIST BILAT 2 VIEWS*[id number], BILATERAL PA AND LATERAL VIEWS XR FOOT BILAT 2 VIEWS*[id number], BILATERAL AP AND LATERAL VIEWS XR ANKLE BILAT 2 VIEWS*[id number], BILATERAL AP AND LATERAL VIEWS. HISTORY: Pain in unspecified joint COMPARISON: None. FINDINGS: There are no fracture, dislocation, suspicious intrinsic bony lesions, significant arthritic changes or suspicious soft tissue abnormalities on these studies. The carpal rows and the carpal joints are normal. The ankle mortise is within normal limits on each side. The postsurgical changes of previous laminectomy and posterior fusion at L5-S1 are noted. The sacroiliac joints and the hip joints appear normal and symmetric. IMPRESSION 1. No fracture or acute process is identified on these ascites. 2. Negative for polyarthritis. Leidy Melchor PA-C DIAGNOSTIC IMAGING O RDERABLES * XR SACROILIAC JOINTS < 3 VW (08/08/2017 5:01 PM CDT) Anatomical Region Laterality Modality Pelvis, Lower Extremity Radiogra phic Imaging 08/08/2017 5:12 PM CDT Impressions 08/08/2017 5:15 PM CDT 1. No fracture or acute process is identified on these ascites. 2. Negative for polyarthritis. Narrative 08/08/2017 5:15 PM CDT XR HANDS BILATERAL 2 VIEWS*[id number], BILATERAL AP AND LATERAL VIEWS XR SACROILIAC JOINTS < 3 VW*[id number], AP, RPO AND LPO VIEWS XR WRIST BILAT 2 VIEWS*[id number], BILATERAL PA AND LATERAL VIEWS XR FOOT BILAT 2 VIEWS*[id number], BILATERAL AP AND LATERAL VIEWS XR ANKLE BILAT 2 VIEWS*[id number], BILATERAL AP AND LATERAL VIEWS. HISTORY: Pain in unspecified joint COMPARISON: None. FINDINGS: There are no fracture, dislocation, suspicious intrinsic bony lesions, significant arthritic changes or suspicious soft tissue abnormalities on these studies. The carpal rows and the carpal joints are normal. The ankle mortise is within normal limits on each side. The postsurgical changes of previous laminectomy and posterior fusion at L5-S1 are noted. The sacroiliac joints and the hip joints appear normal and symmetric. Procedure Note Shankar Portillo MD - 08/08/2017 XR HANDS BILATERAL 2 VIEWS*[id number], BILATERAL AP AND LATERAL VIEWS XR SACROILIAC JOINTS < 3 VW*[id number], AP, RPO AND LPO VIEWS XR WRIST BILAT 2 VIEWS*[id number], BILATERAL PA AND LATERAL VIEWS XR FOOT BILAT 2 VIEWS*[id number], BILATERAL AP AND LATERAL VIEWS XR ANKLE BILAT 2 VIEWS*[id number], BILATERAL AP AND LATERAL VIEWS. HISTORY: Pain in unspecified joint COMPARISON: None. FINDINGS: There are no fracture, dislocation, suspicious intrinsic bony lesions, significant arthritic changes or suspicious soft tissue abnormalities on these studies. The carpal rows and the carpal joints are normal. The ankle mortise is within normal limits on each side. The postsurgical changes of previous laminectomy and posterior fusion at L5-S1 are noted. The sacroiliac joints and the hip joints appear normal and symmetric. IMPRESSION 1. No fracture or acute process is identified on these ascites. 2. Negative for polyarthritis. Leidy Melchor PA-C DIAGNOSTIC IMAGING O RDERABLES * XR CHEST PA AND LATERAL (08/08/2017 5:01 PM CDT) Anatomical Region Laterality Modality Chest Radiographic Ashley ging 08/08/2017 5:15 PM CDT Impressions 08/08/2017 5:15 PM CDT No acute process. Narrative 08/08/2017 5:15 PM CDT CHEST PA AND LATERAL. HISTORY: Pain in unspecified joint COMPARISON: None. FINDINGS: The lungs have normal symmetric volume. Heart is normal in size. The mediastinal silhouette and the pulmonary vasculature are within normal limits. The lungs and the pleural spaces are clear. No suspicious airspace opacities, pulmonary consolidations, pneumothoraces, pleural effusions or fractures are identified. Convex dextroscoliosis of the thoracic spine is noted. Procedure Note Shankar Portillo MD - 08/08/2017 CHEST PA AND LATERAL. HISTORY: Pain in unspecified joint COMPARISON: None. FINDINGS: The lungs have normal symmetric volume. Heart is normal in size. The mediastinal silhouette and the pulmonary vasculature are within normal limits. The lungs and the pleural spaces are clear. No suspicious airspace opacities, pulmonary consolidations, pneumothoraces, pleural effusions or fractures are identified. Convex dextroscoliosis of the thoracic spine is noted. IMPRESSION No acute process. Leidy Melchor PA-C DIAGNOSTIC IMAGING O RDERABLES * IMAGING/RADIOLOGY/XRAY RESULTS ORDER (08/11/2016) Only the most recent of3 resultswithin the time period is included. Anatomical Region Laterality Modality Other Historical Provider IMAGING * CARDIOLIPIN ANTIBODY IGA/IGG/IGM PANEL (08/06/2012 4:52 PM CDT) Anticardiolipin Antibody IgG <15.0 <15.0 [facility] Anticardiolipin Antibody IgM <15.0 <15.0 [facility] Anticardiolipin Antibody IgA <15.0 <15.0 [facility] 08/06/2012 4:52 PM CDT 08/07/2012 10:03 AM CDT Historical Provider LAB - SEROLOGY OR DERABLES Performing Organization Address City/State/[facility] Co de Phone Number [address] [phone] * LUPUS ANTICOAGULANT PANEL (08/06/2012 4:52 PM CDT) APTT 30.2 24.0 - 38.0 [facility] PT 13.5 12.1 - 14.8 [facility] INR 1.0 [facility] [place] Buffer 46.5 [facility] [place] Phospholipid 42.3 [facility] [place] Delta Seconds 4.2 <9.0 [facility] Interpretation [place] NEGATIVE NEGATIVE [facility] Comment: Up to 15-20% of patients with lupus anticoagulant associated with antiphospholipid antibody syndrome (APAS) will have negative [place] results. For these patients we recommend additional testing to include the Dilute [place] Viper Venom Time (DRVVT) and dilute prothrombin time (Dilute PT) tests. Immunoassay measurements of anti-cardiolipin and anti-beta-2 glycoprotein 1 are recommended if the DRVVT, DIL-PT and [place]LOT-LA tests are negative and there is clinical suspicion of APAS. 08/06/2012 4:52 PM CDT 08/07/2012 10:03 AM CDT Historical Provider LAB - HEMATOLOGY ORDERABLES [address] [phone] * CAM[place] VIPER VENOM DILUTE (08/06/2012 4:52 PM CDT) [place]-DRVVT Screen 1.0 <1.2 [facility] Interpretation Dilute RVV NEGATIVE NEGATIVE [facility] 08/06/2012 4:52 PM CDT 08/07/2012 10:03 AM CDT Historical Provider LAB - COAGULATION ORDERABLES Performing Organization Address [facility] Co de Phone Number [address] [phone] * PAIN MANAGEMENT PROCEDURE TIME (06/17/2012 12:17 PM CDT) Only the most recent of3 resultswithin the time period is included. Anatomical Region Laterality Modality X-Ray Angiograph y Narrative 06/17/2012 12:17 PM CDT Rubén Keenan MD 06/17/2012 12:17 PM Epidural Cervical C6-C7 with no Epidurogram Gayla Alfaro Provider: Rubén Keenan MD 1970 Date: 06/17/2012 Emery Curiel Pt. prestents today for a injection. Allergies: Allergies as of 06/17/2012 (No Known Allergies) Procedure: Epidural Cervical C6-C7 Indication: Intractable neck and upper extremity pain. Informed Consent: After the patient was informed of the risks and benefits of the procedure and all questions were answered, consent was signed.Risks benefits, and alternative were discussed including risk of infection, bleeding , nerve damage, worsening pain, no pain relief whatsoever, transient increase in blood pressure, blood sugar, fluid retention,possibility of headache, possibility of shingles, or any other viral outbreak secondary to immunosuppressant effects of steroid use Prep: Pt identified, proper procedure identified, site identified, and marked by Dr. Keenan. Pt is not on Coumidin, Plavix or other blood thinners. Responsible hazardous materials driver is not needed due to the patient not having sedation. The patient was placed in a prone position and was prepped with Chloraprep. Procedure: Lidocaine 1% was injected with a 25 gauge needle at C6-C7 verifying placement with the fluoroscopy. An 18 gauge Touhy needle was placed into the epidural space using loss of resistance technique with preservative free (PF) normal saline. No cerebral spinal fluid or blood was aspirated prior to the injection. 80 milligrams of Depo medrol was injected into the epidural space. Complications: None The patient tolerated the procedure well and there were no complications. The patient was taken to the recovery area. The patient remained in stable condition with no apparent complications. Vital signs stable. Injection site clean, dry, and intact. Post procedure instructions were given to the patient and a follow up appointment was confirmed. The patient was discharged with information on how to reach the clinic at anytime for questions or concerns. Pt ambulatory, denies complaints, DC to home. Pt survey given. Procedure codes: Epi Cer/Thor (S), Fluoro Follow Up: 1 week Rubén Keenan MD Procedure Note Rubén Keenan MD - 06/17/2012 12:17 PM CDT Epidural Cervical C6-C7 with no Epidurogram Gayla FisherProvider: Rubén Keenan MD 1970Date: 06/17/2012 Emery Curiel Pt. prestents today for a injection. Allergies: Allergies as of 06/17/2012 (No Known Allergies) Procedure: Epidural Cervical C6-C7 Indication: Intractable neck and upper extremity pain. Informed Consent: After the patient was informed of the risks andbenefits of the procedure and all questions were answered, consent wassigned.Risks benefits, and alternative were discussed including risk ofinfection, bleeding , nerve damage, worsening pain, no pain reliefwhatsoever, transient increase in blood pressure, blood sugar, fluidretention,possibility of headache, possibility of shingles, or any otherviral outbreak secondary to immunosuppressant effects of steroid use Prep: Pt identified, proper procedure identified, site identified, andmarked by Dr. Keenan. Pt is not on Coumidin, Plavix or other bloodthinners. Responsible hazardous materials driver is not needed due to the patient not havingsedation. The patient was placed in a prone position and was prepped withChloraprep. Procedure: Lidocaine 1% was injected with a 25 gauge needle at C6-L0cnzkghftj placement with the fluoroscopy. An 18 gauge Touhy needle wasplaced into the epidural space using loss of resistance technique withpreservative free (PF) normal saline. No cerebral spinal fluid or bloodwas aspirated prior to the injection. 80 milligrams of Depo medrol wasinjected into the epidural space. Complications: None The patient tolerated the procedure well and there were no complications.The patient was taken to the recovery area. The patient remained instable condition with no apparent complications. Vital signs stable.Injection site clean, dry, and intact. Post procedure instructions weregiven to the patient and a follow up appointment was confirmed. Thepatient was discharged with information on how to reach the clinic atanytime for questions or concerns. Pt ambulatory, denies complaints, DCto home. Pt survey given. Procedure codes: Epi Cer/Thor (S), Fluoro Follow Up: 1 week Rubén Keenan MD Rubén Keenan MD DIAGNOSTIC IMAGING O RDERABLES * XR SPINE SURVEY 2 VW (05/13/2012 4:12 PM CDT) Anatomical Region Laterality Modality Spine Radiographic Ashley ging 05/13/2012 6:28 PM CDT Impressions 05/13/2012 7:01 PM CDT S-shaped scoliosis thoracolumbar spine. Narrative 05/13/2012 7:01 PM CDT X-RAY ENTIRE SPINE TECHNIQUE: AP and lateral views of the spine were obtained. FINDINGS: There is a marked S-shaped scoliosis noted. There is a right convex scoliosis at the midthoracic spine apex approximately T7. There is a left convex scoliosis at the mid lumbar spine with the apex at L2-L3. Posterior fusion hardware is seen at L5-S1. No definite vertebral body anomalies are noted. The degree of curvature does appear to be similar in the lumbar spine comparison films are from 03/31/2010 and 07/07/2010. Procedure Note Rebeca Esposito MD - 05/13/2012 X-RAY ENTIRE SPINE TECHNIQUE: AP and lateral views of the spine were obtained. FINDINGS: There is a marked S-shaped scoliosis noted. There is a right convex scoliosis at the midthoracic spine apex approximately T7. There is a left convex scoliosis at the mid lumbar spine with the apex at L2-L3. Posterior fusion hardware is seen at L5-S1. No definite vertebral body anomalies are noted. The degree of curvature does appear to be similar in the lumbar spine comparison films are from 03/31/2010 and 07/07/2010. IMPRESSION S-shaped scoliosis thoracolumbar spine. Emery Curiel MD DIAGNOSTIC IMAG ING ORDERABLES * D-DIMER (04/04/2012 2:01 PM CDT) D-Dimer 0.36 0.00 - 0.50 mg/L FEU [facility] Comment D-Dimer [facility] Comment: Elevated results above the normal range may indicate DIC in the appropriate clinical setting. Serial evaluations may yield information regarding the clinical course. Results of this test should always be interpreted in conjunction with the patient's medical history, clin- ical presentation and other findings. At the clinical cut-off of 0.50 mg/L FEU the Negative Predictive Value using INNOVANCE D-dimer is 98%. A very low percentage of patients with DVT may yield D-dimer results below the cut-off of 0.50 mg/L FEU. This is known to be prevalent in patients with distal DVT and in rare cases of PE. BLOOD SPECIMEN / Unknown 04/04/2012 2:01 PM CDT 04/04/2012 3:49 PM CDT Provider Unknown LAB - COAGULATION OR DERABLES [facility] [address] [place] [address] * XR LUMBAR SPINE BENDING ONLY 4+ VW (08/11/2010 10:45 AM CDT) Anatomical Region Laterality Modality Spine Radiographic Ashley ging 08/11/2010 2:49 PM CDT Impressions 08/11/2010 2:55 PM CDT STABLE FUSION OF L5-S1. Narrative 08/11/2010 2:55 PM CDT LUMBAR SACRAL SPINE 2 VIEWS INDICATION: Back pain. FINDINGS: AP and lateral views of the lumbosacral spine compared to July 07, 2010 show posterior fusion of L5-S1 with transpedicle screws and osteometallic hardware. There is intervertebral disc space device at L5-S1. There is no acute fracture or hardware complication. Procedure Note Juan C Canales MD - 08/11/2010 LUMBAR SACRAL SPINE 2 VIEWS INDICATION: Back pain. FINDINGS: AP and lateral views of the lumbosacral spine compared to July 07, 2010 show posterior fusion of L5-S1 with transpedicle screws and osteometallic hardware. There is intervertebral disc space device at L5-S1. There is no acute fracture or hardware complication. IMPRESSION STABLE FUSION OF L5-S1. Emery Curiel MD DIAGNOSTIC IMAG ING ORDERABLES * XR LUMBAR SPINE 2 OR 3 VW (07/07/2010 7:43 AM CDT) Only the most recent of4 resultswithin the time period is included. Anatomical Region Laterality Modality Spine Radiographic Ashley ging 07/07/2010 12:3 4 PM CDT Impressions 07/07/2010 1:11 PM CDT Posterior spinal fusion and disc cage placement at L5-S1, without appreciable change from previous examination of May 26, 2010. Hardware is intact and in satisfactory alignment. Narrative 07/07/2010 1:11 PM CDT INDICATION: Low back pain. FINDINGS: AP and lateral views of the lumbar spine are submitted and compared to previous examination from May 26, 2010. FINDINGS: Posterior spinal fusion has been performed at the L5-S1 level. Laminectomy has been performed. Hardware is intact and is in satisfactory position. A rotatory levoscoliosis of the lumbar spine is again demonstrated without significant change. Metallic density consistent with disc cage is present at the L5-S1 level. This is without appreciable change in position. Procedure Note Iliana Farrell MD - 07/07/2010 INDICATION: Low back pain. FINDINGS: AP and lateral views of the lumbar spine are submitted and compared to previous examination from May 26, 2010. FINDINGS: Posterior spinal fusion has been performed at the L5-S1 level. Laminectomy has been performed. Hardware is intact and is in satisfactory position. A rotatory levoscoliosis of the lumbar spine is again demonstrated without significant change. Metallic density consistent with disc cage is present at the L5-S1 level. This is without appreciable change in position. IMPRESSION Posterior spinal fusion and disc cage placement at L5-S1, without appreciable change from previous examination of May 26, 2010. Hardware is intact and in satisfactory alignment. Emery Curiel MD DIAGNOSTIC IMAG ING ORDERABLES * TYPE + SCREEN PANEL (03/30/2010 6:35 AM CDT) ABO Rh A Pos [facility] Antibody Screen Neg Negative [facility] BLOOD SPECIMEN / Unknown 03/30/2010 6:35 AM CDT 03/30/2010 6:58 AM CDT Emery Curiel MD LAB - BLOOD BAN K ORDERABLES Performing Organization Address [facility] Co de Phone Number [facility] [id number] [place] [address] * HGB HCT PANEL (03/30/2010 6:35 AM CDT) Hemoglobin 12.8 12.0 - 16.0 gm/dl [facility] Hematocrit 36.9 36.0 - 48.0 % [facility] BLOOD SPECIMEN / Unknown 03/30/2010 6:35 AM CDT 03/30/2010 6:58 AM CDT Gio Meredith MD LAB - HEMATOLOGY ORD ERABLES Performing Organization Address [facility] Co de Phone Number [facility] [address] [place] [address] * MRIO T SPINE WO CONT (03/10/2010 4:45 PM CDT) Anatomical Region Laterality Modality Magnetic Resonan ce Angiography 03/10/2010 6:11 PM CDT Impressions 03/10/2010 6:30 PM CDT ADVANCED THORACIC SCOLIOSIS CONVEXED TO THE RIGHT. THE DEGREE OF CURVATURE CAN BE MEASURED WITH STANDING VIEWS OF THE SPINE IF CLINICALLY INDICATED. NO EVIDENCE OF HIGH GRADE THECAL SAC STENOSIS. Narrative 03/10/2010 6:30 PM CDT MRI THORACIC SPINE WITHOUT CONTRAST CLINICAL INDICATION: Thoracic radiculopathy, midback pain with radiating pain to the lateral aspect of the thorax. TECHNIQUE: Coronal T1, sagittal STIR, sagittal T2, sagittal T1, axial T2, and axial T1-weighted sequences of the thoracic spine were obtained without contrast. Imaging was performed on a low field 0.3 Maria Guadalpue open magnet. FINDINGS: There is a significant thoracic scoliosis convexed to the right. No vertebral anomalies are seen. Signal of the thoracic spinal cord is within normal limits. There is no evidence of focal disc herniation. There are no sites of canal stenosis. There is no evidence of vertebral compression fracture. Procedure Note Sugar Payne MD - 03/10/2010 MRI THORACIC SPINE WITHOUT CONTRAST CLINICAL INDICATION: Thoracic radiculopathy, midback pain with radiating pain to the lateral aspect of the thorax. TECHNIQUE: Coronal T1, sagittal STIR, sagittal T2, sagittal T1, axial T2, and axial T1-weighted sequences of the thoracic spine were obtained without contrast. Imaging was performed on a low field 0.3 Maria [place]upe open magnet. FINDINGS: There is a significant thoracic scoliosis convexed to the right. No vertebral anomalies are seen. Signal of the thoracic spinal cord is within normal limits. There is no evidence of focal disc herniation. There are no sites of canal stenosis. There is no evidence of vertebral compression fracture. IMPRESSION ADVANCED THORACIC SCOLIOSIS CONVEXED TO THE RIGHT. THE DEGREE OF CURVATURE CAN BE MEASURED WITH STANDING VIEWS OF THE SPINE IF CLINICALLY INDICATED. NO EVIDENCE OF HIGH GRADE THECAL SAC STENOSIS. Emery Curiel MD MR ORDERABLES * MRIO C SPINE WO CONT (03/10/2010 4:40 PM CDT) Anatomical Region Laterality Modality Magnetic Resonan ce Angiography 03/10/2010 6:08 PM CDT Impressions 03/10/2010 6:29 PM CDT BROAD-BASED DISC EXTRUSION WITH PARTIAL EFFACEMENT OF THE VENTRAL THECAL SAC AND MILD BILATERAL UNCOVERTEBRAL JOINT HYPERTROPHY AT C5-C6. NO SITES OF CANAL OR NEURAL FORAMINAL STENOSIS. Narrative 03/10/2010 6:29 PM CDT MRI CERVICAL SPINE WITHOUT CONTRAST CLINICAL INDICATION: Cervical radiculopathy, neck pain with radiating pain and numbness of the right upper extremity and left shoulder, cervicalgia. TECHNIQUE: Sagittal T1, sagittal T2, axial T2, and axial gradient-echo sequences of the cervical spine were obtained without contrast. Imaging was performed on a low field 0.3 Maria Gu[place]upe open magnet. FINDINGS: There is straightening of the normal cervical lordosis. Vertebral body height and bone marrow signal are within normal limits. Signal of the cervical spinal cord is within normal limits. C2-C3: No canal or neural foraminal stenosis. C3-C4: No canal or neural foraminal stenosis. C4-C5: No canal or neural foraminal stenosis. C5-C6: Broad-based disc extrusion with partial effacement of the ventral thecal sac. Mild bilateral uncovertebral joint hypertrophy. No canal or neural foraminal stenosis. C6-C7: No canal or neural foraminal stenosis. C7-T1: No canal or neural foraminal stenosis. T1-T2: No canal or neural foraminal stenosis. Procedure Note Sugar Payne MD - 03/10/2010 MRI CERVICAL SPINE WITHOUT CONTRAST CLINICAL INDICATION: Cervical radiculopathy, neck pain with radiating pain and numbness of the right upper extremity and left shoulder, cervicalgia. TECHNIQUE: Sagittal T1, sagittal T2, axial T2, and axial gradient-echo sequences of the cervical spine were obtained without contrast. Imaging was performed on a low field 0.3 Maria Guadalupe open magnet. FINDINGS: There is straightening of the normal cervical lordosis. Vertebral body height and bone marrow signal are within normal limits. Signal of the cervical spinal cord is within normal limits. C2-C3: No canal or neural foraminal stenosis. C3-C4: No canal or neural foraminal stenosis. C4-C5: No canal or neural foraminal stenosis. C5-C6: Broad-based disc extrusion with partial effacement of the ventral thecal sac. Mild bilateral uncovertebral joint hypertrophy. No canal or neural foraminal stenosis. C6-C7: No canal or neural foraminal stenosis. C7-T1: No canal or neural foraminal stenosis. T1-T2: No canal or neural foraminal stenosis. IMPRESSION BROAD-BASED DISC EXTRUSION WITH PARTIAL EFFACEMENT OF THE VENTRAL THECAL SAC AND MILD BILATERAL UNCOVERTEBRAL JOINT HYPERTROPHY AT C5-C6. NO SITES OF CANAL OR NEURAL FORAMINAL STENOSIS. Emery Curiel MD MR ORDERABLES * CT DISCOGRAM (02/14/2010 11:11 AM CDT) Anatomical Region Laterality Modality Spine Computed Tomogra phy 02/14/2010 12:0 0 PM CDT Narrative 02/14/2010 2:09 PM CDT Examination: Postdiscogram CT lumbar spine. Indication for examination: Left-sided low back pain, left leg pain with lumbar radiculopathy. Previous lumbar surgery. Postdiscogram CT examination of the lumbar spine is performed with angled views through the lowest three lumbar disc spaces. No prior studies are available. At L3-L4 the disc is normal in axial projection. Foramina are patent and symmetric. At L4-L5 the disc is normal in axial projection. No disc protrusion, nerve root or thecal sac compression is observed. At L5-S1 there is degenerative change with mild diffuse annular bulge. This is eccentric to the left with encroachment left L5 foramen. There is left-sided facet hypertrophy. There is endplate hypertrophy, mild. Conclusion: Degenerative change L5-S1 with diffuse annular bulge eccentric to the left. There is encroachment left L5 foramen. No high-grade thecal sac compression. No focal disc protrusion, nerve root or thecal sac compression identified at L3-L4 or L4-L5. Procedure Note Abhinav Zamora MD - 02/14/2010 Examination: Postdiscogram CT lumbar spine. Indication for examination: Left-sided low back pain, left leg pain with lumbar radiculopathy. Previous lumbar surgery. Postdiscogram CT examination of the lumbar spine is performed with angled views through the lowest three lumbar disc spaces. No prior studies are available. At L3-L4 the disc is normal in axial projection. Foramina are patent and symmetric. At L4-L5 the disc is normal in axial projection. No disc protrusion, nerve root or thecal sac compression is observed. At L5-S1 there is degenerative change with mild diffuse annular bulge. This is eccentric to the left with encroachment left L5 foramen. There is left-sided facet hypertrophy. There is endplate hypertrophy, mild. Conclusion: Degenerative change L5-S1 with diffuse annular bulge eccentric to the left. There is encroachment left L5 foramen. No high-grade thecal sac compression. No focal disc protrusion, nerve root or thecal sac compression identified at L3-L4 or L4-L5. Abhinav Zamora MD CT ORDERABLES * IR DISKOGRAPHY LUM (02/14/2010 10:55 AM CDT) Anatomical Region Laterality Modality Spine X-Ray Angiograph y 02/14/2010 12:2 8 PM CDT Narrative 02/14/2010 12:30 PM CDT Examination: Lumbar discography, 3 levels. Indication for examination: Left-sided low back pain, left leg pain with lumbar radiculopathy. This procedure was performed in the radiology department by Dr. Zamora. After explanation of the procedure to the patient and routine alcohol and lidocaine skin prep, 22-gauge spinal needles were placed into the L3-L4, L4-L5 and L5-S1 disc under fluoroscopic control. A right posterolateral oblique approach was chosen with the patient in prone position. Injections of nonionic contrast and saline were made with spot filming at each level. She tolerated the procedure satisfactorily. Initially, L5-S1 was injected. There was reproduction of her characteristic left low back pain, radiating down the posterior aspect of the left leg, with injection at L5-S1. This correlates with her major pain syndrome. This persisted throughout the procedure. Next, L4-L5 was injected. There is mild low back pain with injection at this level. However there is no specific reproduction of her usual pain with injection at L4-L5. Lastly, L3-L4 was injected. Again there is mild low back discomfort without specific reproduction of her characteristic left low back pain or left posterior leg pain. Conclusion: Reproduction of patient's characteristic left low back pain and left posterior leg pain with injection at L5-S1. No specific reproduction at L3-L4 or L4-L5. Procedure Note Abhinav Zamora MD - 02/14/2010 Examination: Lumbar discography, 3 levels. Indication for examination: Left-sided low back pain, left leg pain with lumbar radiculopathy. This procedure was performed in the radiology department by Dr. Zamora. After explanation of the procedure to the patient and routine alcohol and lidocaine skin prep, 22-gauge spinal needles were placed into the L3-L4, L4-L5 and L5-S1 disc under fluoroscopic control. A right posterolateral oblique approach was chosen with the patient in prone position. Injections of nonionic contrast and saline were made with spot filming at each level. She tolerated the procedure satisfactorily. Initially, L5-S1 was injected. There was reproduction of her characteristic left low back pain, radiating down the posterior aspect of the left leg, with injection at L5-S1. This correlates with her major pain syndrome. This persisted throughout the procedure. Next, L4-L5 was injected. There is mild low back pain with injection at this level. However there is no specific reproduction of her usual pain with injection at L4-L5. Lastly, L3-L4 was injected. Again there is mild low back discomfort without specific reproduction of her characteristic left low back pain or left posterior leg pain. Conclusion: Reproduction of patient's characteristic left low back pain and left posterior leg pain with injection at L5-S1. No specific reproduction at L3-L4 or L4-L5. Emery Curiel MD IR ORDERABLES
--- OUTSIDE RECORDS SUMMARY | 2025-01-22 12:07 | XMS_ITS | Encounter Summary ---
Author Organization [facility] Health Address [address] [facility] [place] [address] Care Team Providers Care Domestic Freight Forwarder Name Role Phone Emery Curiel MD Primary Care Provider Encounter Details Date Type Department Care Team (Late st Contact Info) Description 08/11/2014 [facility] Outpatient Visit [address] [id number] Emery Curiel MD [address] [place] [id number] Social History Tobacco Use Types Packs/Day Years Used Date Smoking Tobacco: Former Cigarettes 0.5 17 Alcohol Use Standard Drinks/Week Comments Yes 0 (1 standard drink = 0.6 oz pur e alcohol) rare Sex and Gender Information Value Date Recorded Sex Assigned at Not on file Gender Identity Not on file Sexual Orientation Not on file documented as of this encounter Plan of Treatment Not on file documented as of this encounter Visit Diagnoses Not on filedocumented in this encounter Care Teams Domestic Freight Forwarder Relationship Specialty Start Date End Date Emery Curiel MD [address] [place] [phone] PCP - General 07/07/10 08/15/16 documented as of this encounter
--- OUTSIDE RECORDS SUMMARY | 2025-01-22 12:07 | XMS_ITS | Encounter Summary ---
Author Organization [facility] Health Address [address] [facility] [place] [address] Care Team Providers Care Cotton Opener Name Role Phone Emery Curiel MD Primary Care Provider Encounter Details Date Type Department Care Team (Late st Contact Info) Description 08/23/2010 [facility] Outpatient Visit EXTERNAL NON-[facility] DEPT Unknown, Provider Social History Tobacco Use Types Packs/Day Years [...] on filedocumented in this encounter Care Teams Cotton Opener Relationship Specialty Start Date End Date Emery Curiel MD [address] [place] [id number] PCP - General 07/07/10 08/15/16 documented as of this encounter
--- OUTSIDE RECORDS SUMMARY | 2025-01-22 12:07 | XMS_ITS | Clinical Summary ---
Author Organization [facility] Address [address] [place] [address] Care Team Providers Care Headrig Sawyer Name Role Phone Patricia King MD Unavailable Power Leon DO Primary Care Provider [phone] Allergies No known active allergies Medications ALPRAZolam [...] (10/03/2023): Fatigue / Malaise;Recorded Elsewhere: No Location: [facility] Source: EHR Chronic: N Practice ID: [id number] [...] Papanicolaou smear of cervix;Recorded Elsewhere: No Location: [facility] Source: EHR Chronic: N Practice ID: [id number] Billable Time: 09:30:00 AM Carpal tunnel syndrome 06/07/2012 Overview (02/24/2017): Carpal tunnel syndrome of right wrist Iron deficiency anemia 05/21/2012 Overview (10/03/2023): Anemia, Iron Deficiency;Recorded Elsewhere: No Location: [facility] Source: EHR Chronic: N Practice ID: [id number] [...] Low back pain 02/07/2010 Overview (06/07/2017): Overview: Encounters Date Type Department Care Team Description 2024 Orders Only [facility] Orthopaedic Surgery [address] [facility] Advanced Medicine 6th [place] [address] [place] [address] Tigre Lucia MD Hx of spinal fusion (Primary Dx) 11/05/2024 1:23 PM FIRE PREVENTION RESEARCH ENGINEER - 11/05/2024 11:59 PM FIRE PREVENTION RESEARCH ENGINEER Hospital Encounter [facility] [address] [place] [address] Tigre Lucia MD Idiopathic scoliosis in adult patient; Hx of spinal fusion Discharge Disposition: Discharge to home or self care 11/04/2024 Orders Only [facility] Orthopaedic Surgery [address] [facility] [address] [place] [address] Tigre Lucia MD Idiopathic scoliosis in adult patient (Primary Dx); Hx of spinal fusion from Last 3 Months Immunizations Immunization Administration Dates Next Due Influenza, Quadrivalent, Spl it, Preservative Free, Intramuscular 09/14/2014 Influenza, Trivalent, IM (MDV) 08/25/2017,2014 Influenza, Trivalent, Preser vative Free, Intramuscular 08/22/2016,08/24/2015,09/07/2014 Tdap 07/12/2015,11/19/2004 Surgical History Surgery Date Site/Laterality Comments 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: billy 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 HISTORY laminectomy, distectomy, furaminotomy 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 HISTORY had T-lif (titanium rods and pins) TUBAL LIGATION Bilateral tubal ligation TUBAL LIGATION 1996 Bilateral tubal ligation BACK SURGERY 2000 Back surgery TONSILLECTOMY 2012 tonsilectomy 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 HISTORY 2000 laminectomy,distectomy 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 HISTORY 2000 framinotomy 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 HISTORY 2009 t lif 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 HISTORY hospital orbital cellulitis 5-12 HYSTERECTOMY CHOLECYSTECTOMY CENTRAL LINE PLACEMENT > 5 YEARS 12/27/2023 N/A FLUORO GUIDED INJECTION HIP RIGHT 03/04/2024 Right CENTRAL LINE PLACEMENT > 5 YEARS 08/28/2024 N/A Medical History Medical History Date Comments Hx 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 Fernando avila lted. family hx of RA. Hx Other Medical Dr. Steele -Hemat ologist. iron deficiency. Hx Other Medical Dr. Kaur-Endoc rinologist w/u normal. Hx Other Medical Dr. Kayla hernandez gyne. Hx Other Medical 2012 total vaginal h ysterectomy and left salpingo-oopho; Comments: AAW 07/18/2015 -menorrhagia. Hx Other Medical back pain ADHD (attention deficit hype ractivity disorder) Delayed emergence from general anesthesia did well with most recent back surgery 12/28/23 Family History Medical History Relation Name Comments Rheum arthritis Child Rheumatoid a rthritis; Diabetes Father Diabetes mellit us; Hypertension Father Hypertension; Stroke Father Stroke; Pancreatic cancer Maternal Grandfather Ca ncer -pancreatic; Bone cancer Maternal Grandmother Cancer -bone; Cause of : Cancer -bone Breast cancer Maternal Grandmother Cancer -breast; COPD Mother COPD; Melanoma Mother melanoma; Osteoporosis Mother Osteoporosis; Other Mother Alive and well; Hypertension Other 1 Family history of Hypertension; Stroke Other 2 Family history of Stroke; Osteoporosis Other 3 Family history of Osteoporosis; Other Other 4 Family history of Lupus erythematosus; Rheum arthritis Other 5 Family histo ry of Rheumatoid arthritis; Other Other 6 Family history of juvenile arthritis; Other Other 7 Family history of psoriatic; Migraines Other 8 Family history of Migraine; Lupus Sister 1 Systemic lupus erythematosus; Rheum arthritis Sister 2 Rheumatoid a rthritis; Anesthesia problems Neg Hx Relation Name Status Comments Child Father Maternal Grandfather Maternal Grandmother Mother Alive Other 1 Other 2 Other 3 Other 4 Other 5 Other 6 Other 7 Other 8 Sister 1 Sister 2 Social History Tobacco Use Types Packs/Day Years Used Date Smoking Tobacco: Former Cigarettes Q uit: 2010 Passive Smoke Exposure: Past Smokeless Tobacco: Never Tobacco Cessation:Counseling Given: Not Answered Alcohol Use Standard Drinks/Week Comments Yes 0 (1 standard drink = 0.6 oz pur e alcohol) [facility] Utilities Answer Date Recorded In the past 12 months has th e electric, gas, oil, or water company threatened to shut off services in your [...] often do you attend chur ch or confucianism services? Patient declined 01/07/2024 Do you belong to any clubs o r organizations such as judaism groups, unions, fraternal or athletic groups, or [...] place to sleep or slept in a group home (including now)? No 01/07/2024 Personal Safety Answer Date Recorded Have you ever been in or are you currently in a harmful physical or emotional relationship or is someone making you feel afraid or unsafe? Denies 08/31/2024 Comments No Sex and Gender Information Value Date Recorded Sex Assigned at Not on file Legal Sex Female 12:28 AM FIRE PREVENTION RESEARCH ENGINEER Gender Identity Not on file Sexual Orientation Not on file Obstetrics History Last Filed Vital Signs Vital Sign Reading Time Taken Comments Blood Pressure 156/94 09/05/2024 2:25 PM CDT Pulse 68 09/05/2024 1:25 PM CDT Temperature 36.7 C (98.1 F) 09/05/2024 1:25 PM CDT Respiratory Rate 18 09/05/2024 1:25 PM CDT Oxygen Saturation 100% 09/05/2024 1:25 PM CDT Inhaled Oxygen Concentration - - Weight 80 kg (176 lb 6.4 oz) 10/08/2024 1:21 PM FIRE PREVENTION RESEARCH ENGINEER Height 158.8 cm (5' 2.5 ) 10/08/2024 1:21 PM FIRE PREVENTION RESEARCH ENGINEER Body Mass Index 31.75 10/08/2024 1:21 PM FIRE PREVENTION RESEARCH ENGINEER Plan of Treatment Health Maintenance Due Date Last Done Comments Hepatitis B Screening 1988 Regular Well Visit/Exam 18-64 1988 Breast Cancer Screening-Mammogram 11/18/2015 11/18/2014 Depression Screening 07/30/2018 07/30/2017, 06/07/2017, 05/29/2017, Additional history exists Zoster Vaccine (1 of 2) 2020 Colon Cancer Screening-Colonoscopy 08/21/2021 08/21/2011, 08/21/2011 Influenza Vaccine (#1) 2024 7, 08/22/2016, 09/15/2015, Additional history exists DTaP/Tdap/Td Vaccine (3 - Td or Tdap) 07/12/2025 07/12/2015, 11/19/2004 Colon Cancer Screening-CT Colonography Discontinued 08/21/2011, 08/21/2011 Colon Cancer Screening-DNA Stool Discontinued 08/21/2011, 08/21/2011 Colon Cancer Screening-FIT Discontinued 08/21/2011, Colon Cancer Screening-Sigmoidoscopy Discontinued 08/21/2011, 08/21/2011 Hepatitis C Screening Completed 08/18/2024, 024 Pneumococcal vaccine <65 Aged Out No longer eligible based on patient's age to complete this topic Medical Devices Implanted Type Area Ditch Digger Device Identifier Shelf Expiration Date Model / Serial / Lot Allosource Crushed Chip Frozen Graft 90ml Bone Cancellous [id number] - [id number] Implanted:Qty: 1 on 12/28/2023 by Tigre Lucia MD at [facility] N/A: Spine Lumbar Allosource 04/07/2028 [id number] / / [id number] Depuy Synthes Spine Expedium 1 Inner Monoaxial Spine Screw Set Titanium [id number] - [id number] Implanted:Qty: 20 on 12/28/2023 by Tigre Lucia MD at [facility] N/A: Spine Lumbar Depuy Synthes Spine [id number] / / Depuy Synthes Spine Expedium 8mm 80mm Polyaxial Spine Screw Bone Titanium Nonsterile [id number] - [id number] Implanted:Qty: 2 on 12/28/2023 by Tigre Lucia MD at [facility] N/A: Spine Lumbar Depuy Synthes Spine [id number] / / Depuy Synthes Spine [place] Expedium 9.5mm Closed Wide Blade Hook Spinal Titanium 5.5mm [id number] - [id number] Implanted:Qty: 2 on 12/28/2023 by Tigre Lucia MD at [facility] N/A: Spine Lumbar Depuy Synthes Spine [id number] / / Depuy Synthes Spine [place] Expedium 6mm 50mm Fix [place] Spinal Titanium [id number] - [id number] Implanted:Qty: 8 on 12/28/2023 by Tigre Lucia MD at [facility] N/A: Spine Lumbar Depuy Synthes Spine [id number] / / Depuy Synthes Spine [place] Expedium 6mm 45mm Fix [place] Spinal Titanium [id number] - [id number] Implanted:Qty: 2 on 12/28/2023 by Tigre Lucia MD at [facility] N/A: Spine Lumbar Depuy Synthes Spine [id number] / / Depuy Synthes Spine [place] Expedium 6mm 35mm Fix [place] Spinal Titanium [id number] - [id number] Implanted:Qty: 2 on 12/28/2023 by Tigre Lucia MD at [facility] N/A: Spine Lumbar Depuy Synthes Spine [id number] / / Depuy Synthes Spine [place] Expedium [place] Spinal Nut Lock Titanium [id number] - [id number] Implanted:Qty: 12 on 12/28/2023 by Tigre Lucia MD at [facility] N/A: Spine Lumbar Depuy Synthes Spine [id number] / / Depuy Synthes Spine [place] Expedium Slot Spine Mini Left Offset Connector Miles Titanium [id number] - [id number] Implanted:Qty: 2 on 12/28/2023 by Tigre Lucia MD at [facility] N/A: Spine Lumbar Depuy Synthes Spine [id number] / / Depuy Synthes Spine [place] Expedium Slot Spine Mini Right Offset Connector Miles [id number] - [id number] Implanted:Qty: 2 on 12/28/2023 by Tigre Lucia MD at [facility] N/A: Spine Lumbar Depuy Synthes Spine [id number] / / Depuy Synthes Spine [place] Expedium Slot Spine Straight Connector Miles Titanium Ddv [id number] - [id number] Implanted:Qty: 6 on 12/28/2023 by Tigre Lucia MD at [facility] N/A: Spine Lumbar Depuy Synthes Spine [id number] / / Allosource Crushed Chip Frozen Graft 90ml Bone Cancellous [id number] - [id number] Implanted:Qty: 1 on 12/28/2023 by Tigre Lucia MD at [facility] N/A: Spine Lumbar Allosource 04/07/2028 [id number] / / [id number] Depuy Synthes Spine [place] Expedium 55mm Band Clamp Spinal Titanium [id number] - [id number] Implanted:Qty: 2 on 12/28/2023 by Tigre Lucia MD at [facility] N/A: Spine Lumbar Depuy Synthes Spine [id number] / / Depuy Synthes Spine [place] 5.5mm 60mm Transverse Body Spine Connector Miles Nonsterile [id number] - [id number] Implanted:Qty: 2 on 12/28/2023 by Tigre Lucia MD at [facility] N/A: Spine Lumbar Depuy Synthes Spine [id number] / / Depuy Synthes Spine Expedium Viper 2 5.5mm 480mm Straight Miles Spinal [id number] - [id number] Implanted:Qty: 3 on 12/28/2023 by Tigre Lucia MD at [facility] N/A: Spine Lumbar Depuy Synthes Spine [id number] / / Depuy Synthes Spine [place] Expedium 2 Spine Wire Fixation Cocr Titanium [id number] - [id number] Implanted:Qty: 2 on 12/28/2023 by Tigre Lucai MD at [facility] N/A: Spine Lumbar Depuy Synthes Spine [id number] / / Depuy Synthes Spine Expedium 5.5mm Open Closed Spine Connector Miles Titanium [id number] - [id number] Implanted:Qty: 2 on 12/28/2023 by Tigre Lucia MD at [facility] N/A: Spine Lumbar Depuy Synthes Spine [id number] / / Allosource Crushed Chip Frozen Graft 60ml Bone Cancellous [id number] - [id number] Implanted:Qty: 1 on 12/28/2023 by Tigre Lucia MD at [facility] N/A: Spine Lumbar Allosource 05/04/2028 [id number] / / [id number] Medtronic Inc Kit Graft Bone Sponge Xlg Infuse 8cc Granules [id number] - [id number] Implanted:Qty: 4 on 12/28/2023 by Tigre Lucia MD at [facility] N/A: Spine Lumbar Medtronic Inc [id number] 05/19/2025 [id number] / / [id number] Abyrx Hemasorb Filled Applicator Surgical Rachel-351 - [id number] Implanted:Qty: 1 on 12/28/2023 by Tigre Lucia MD at [facility] N/A: Spine Lumbar Abyrx 06/18/2026 [id number]-351 / / Depuy Synthes Spine Expedium 5mm 35mm Fix Spine Cortical Screw Bone Titanium 5.5mm [id number] - [id number] Implanted:Qty: 1 on 12/28/2023 by Tigre Lucia MD at [facility] N/A: Spine Lumbar Depuy Synthes Spine [id number] / / Depuy Synthes Spine Expedium 5mm 40mm Fix Spine Cortical Screw Bone Titanium 5.5mm [id number] - [id number] Implanted:Qty: 3 on 12/28/2023 by Tigre Lucia MD at [facility] N/A: Spine Lumbar Depuy Synthes Spine [id number] / / Depuy Synthes Spine Expedium 6mm 35mm Fix Spine Cortical Screw Bone Titanium 5.5mm [id number] - [id number] Implanted:Qty: 1 on 12/28/2023 by Tigre Lucia MD at [facility] N/A: Spine Lumbar Depuy Synthes Spine [id number] / / Depuy Synthes Spine Expedium 6mm 40mm Fix Spine Cortical Screw Bone Titanium 5.5mm [id number] - [id number] Implanted:Qty: 9 on 12/28/2023 by Tigre Lucia MD at [facility] N/A: Spine Lumbar Depuy Synthes Spine [id number] / / Abyrx Hemasorb Filled Applicator Surgical Rachel-351 - [id number] Implanted:Qty: 1 on 08/29/2024 by Tigre Lucia MD at [facility] N/A: Spine Lumbar Abyrx 11/18/2026 RACHEL-351 / / Medtronic Inc Kit Graft Bone Sponge Xlg Infuse 8cc Granules [id number] - [id number] Implanted:Qty: 4 on 08/29/2024 by Tigre Lucia MD at [facility] N/A: Spine Lumbar Medtronic Inc [id number] 01/17/2026 [id number] / / [id number] Allosource Graft Bone Canc 90ml Crushed Chip Frozen [id number] - [id number] Implanted:Qty: 1 on 08/29/2024 by Tigre Lucia MD at [facility] N/A: Spine Lumbar Allosource 05/14/2029 [id number] / / [id number] Allosource Graft Bone Canc 90ml Crushed Chip Frozen [id number] - [id number] Implanted:Qty: 1 on 08/29/2024 by Tigre Lucia MD at [facility] N/A: Spine Lumbar Allosource 03/10/2029 [id number] / / [id number] Depuy Synthes Spine [place] Expedium 6mm 50mm Fix [place] Spinal Titanium [id number] - [id number] Implanted:Qty: 2 on 08/29/2024 by Tigre Lucia MD at [facility] N/A: Spine Lumbar Depuy Synthes Spine [id number] / / Depuy Synthes Spine [place] Expedium 7mm 50mm Fix [place] Spinal Titanium [id number] - [id number] Implanted:Qty: 4 on 08/29/2024 by Tigre Lucia MD at [facility] N/A: Spine Lumbar Depuy Synthes Spine [id number] / / Depuy Synthes Spine [place] Expedium 7mm 45mm Fix [place] Spinal Titanium [id number] - [id number] Implanted:Qty: 2 on 08/29/2024 by Tigre Lucia MD at [facility] N/A: Spine Lumbar Depuy Synthes Spine [id number] / / Depuy Synthes Spine [place] Expedium 7mm 35mm Fix [place] Spinal Titanium [id number] - [id number] Implanted:Qty: 2 on 08/29/2024 by Tigre Lucia MD at [facility] N/A: Spine Lumbar Depuy Synthes Spine [id number] / / Depuy Synthes Spine [place] Expedium [place] Spinal Nut Lock Titanium [id number] - [id number] Implanted:Qty: 10 on 08/29/2024 by Tigre Lucia MD at [facility] N/A: Spine Lumbar Depuy Synthes Spine [id number] / / Depuy Synthes Spine Expedium 1 Inner Monoaxial Spine Screw Set Titanium [id number] - [id number] Implanted:Qty: 12 on 08/29/2024 by Tigre Lucia MD at [facility] N/A: Spine Lumbar Depuy Synthes Spine [id number] / / Depuy Synthes Spine Expedium Viper 2 5.5mm 480mm Straight Miles Spinal [id number] - [id number] Implanted:Qty: 3 on 08/29/2024 by Tigre Lucia MD at [facility] N/A: Spine Lumbar Depuy Synthes Spine [id number] / / Depuy Synthes Spine 5.5mm Offset Twister Wire Titanium Latex Free [id number] - [id number] Implanted:Qty: 4 on 08/29/2024 by Tigre Lucia MD at [facility] N/A: Spine Lumbar Depuy Synthes Spine [id number] / / Depuy Synthes Spine [place] Expedium Slot Spine Mini Left Offset Connector Miles Titanium [id number] - [id number] Implanted:Qty: 1 on 08/29/2024 by Tigre Lucia MD at [facility] N/A: Spine Lumbar Depuy Synthes Spine [id number] / / Depuy Synthes Spine [place] Expedium Slot Spine Mini Right Offset Connector Miles [id number] - [id number] Implanted:Qty: 1 on 08/29/2024 by Tigre Lucia MD at [facility] N/A: Spine Lumbar Depuy Synthes Spine [id number] / / Depuy Synthes Spine [place] Expedium 55mm Band Clamp Spinal Titanium [id number] - [id number] Implanted:Qty: 2 on 08/29/2024 by Tigre Lucia MD at [facility] N/A: Spine Lumbar Depuy Synthes Spine [id number] / / Depuy Synthes Spine [place] Expedium Slot Spine Downsize Connector Miles Titanium Ddv [id number] - [id number] Implanted:Qty: 2 on 08/29/2024 by Tigre Lucia MD at [facility] N/A: Spine Lumbar Depuy Synthes Spine [id number] / / Depuy Synthes Spine [place] 5.5mm 60mm Transverse Body Spine Connector Miles Nonsterile [id number] - [id number] Implanted:Qty: 2 on 08/29/2024 by Tigre Lucia MD at [facility] N/A: Spine Lumbar Depuy Synthes Spine [id number] / / Depuy Synthes Spine [place] 5.5mm 2 End To End Spine Connector Miles Nonsterile [id number] - [id number] Implanted:Qty: 2 on 08/29/2024 by Tigre Lucia MD at [facility] N/A: Spine Lumbar Depuy Synthes Spine [id number] / / Depuy Synthes Spine Expedium 5.5mm 55mm Line Prebent Miles Spinal Titanium Nonsterile [id number] - [id number] Implanted:Qty: 2 on 08/29/2024 by Tigre Lucia MD at [facility] N/A: Spine Lumbar Depuy Synthes Spine [id number] / / Depuy Synthes Spine [place] Expedium 2 Spine Wire Fixation Cocr Titanium [id number] - [id number] Implanted:Qty: 2 on 08/29/2024 by Tigre Lucia MD at [facility] N/A: Spine Lumbar Depuy Synthes Spine [id number] / / Depuy Synthes Spine Expedium 5.5mm Open Closed Spine Connector Miles Titanium [id number] - [id number] Implanted:Qty: 2 on 08/29/2024 by Tigre Lucia MD at [facility] N/A: Spine Lumbar Depuy Synthes Spine [id number] / / Depuy Synthes Spine Expedium 9mm 80mm Polyaxial Spine Pedicle Screw Bone Titanium 5.5 [id number] - [id number] Implanted:Qty: 2 on 08/29/2024 by Tigre Lucia MD at [facility] N/A: Spine Lumbar Depuy Synthes Spine [id number] / / Explanted Type Area Ditch Digger Device Identifier Shelf Expiration Date Model / Serial / Lot Depuy Synthes Spine [place] Expedium 6mm 45mm Fix [place] Spinal Titanium [id number] - [id number] Explanted:Qty : 1 on 08/29/2024 by Tigre Lucia MD at [facility] N/A: Spine Lumbar Depuy Synthes Spine [id number] / / Procedures Procedure Name Priority Date/Time Associated Diagnosis Comments XR SCOLIOSIS AP LAT Schedule Routine, Read Routine (OP Routine) 11/05/2024 1:41 PM FIRE PREVENTION RESEARCH ENGINEER Idiopathic scoliosis in adult patient Hx of spinal fusion HEPATITIS PANEL, ACUTE Routine 08/18/2024 5:31 PM CDT Flatback syndrome Sagittal plane imbalance Hx of spinal fusion DIAGNOSTIC MAMMOGRAM BILATERAL W QUIQUE Routine 11/18/2014 11:02 AM FIRE PREVENTION RESEARCH ENGINEER HM COLONOSCOPY Routine 08/21/2011 from Last 3 Months or Most Recently Relevant to Health Maintenance Results * XR Scoliosis AP LAT (11/05/2024 1:41 PM FIRE PREVENTION RESEARCH ENGINEER) Anatomical Region Laterality Modality Spine N/A Computed Radiogr aphy 11/05/2024 2:09 PM FIRE PREVENTION RESEARCH ENGINEER Impressions 11/05/2024 2:10 PM FIRE PREVENTION RESEARCH ENGINEER 1. Unchanged posterior instrumented fusion extending from [...] Raymundo Ng M.D. Narrative 11/05/2024 2:10 PM FIRE PREVENTION RESEARCH ENGINEER EXAMINATION: XR SCOLIOSIS AP AND LATERAL HISTORY: [...] Nonreactive Hep B core IgM Nonreactive Nonreactive [facility] Hep C Ab Nonreactive Nonreactive [facility] Comment:Antibodies to HCV no t detected. Does NOT exclude the possibility of recent exposure to HCV. Current interpretive data was last revised on 22 HepBsAg Nonreactive Nonreactive [facility] Blood 08/18/2024 5:31 PM CDT 08/18/2024 6:18 PM CDT Tigre Lucia MD LAB MICROBIOLOGY - GENER AL ORDERABLES Final Result [facility] Department of Laboratories [place], [place] [id number] * DIAGNOSTIC MAMMOGRAM BILATERAL W QUIQUE (11/18/2014 11:02 AM FIRE PREVENTION RESEARCH ENGINEER) Anatomical Region Laterality Modality Breast Bilateral Mammography 11/18/2014 11:0 2 AM FIRE PREVENTION RESEARCH ENGINEER Narrative 11/19/2014 10:39 PM FIRE PREVENTION RESEARCH ENGINEER Acc#: [id number] - Screening Mamm W Quique Bi DATE OF EXAM: Nov 18 2014 11:02AM DIAGNOSIS: SCREEN MAMMOGRAPHY NEC CLINICAL HISTORY: SCREENING RESULT: \ BREAST SCREENING, DIGITAL WITH CAD AND TOMOSYNTHESIS, BILATERAL COMPARISON: Comparison is made to 07/28/2011 screening mammographic exam performed at [facility]. This comparison was performed via Clinical Desktop. FINDINGS: Breasts are extremely dense. Parenchymal distribution is stable. There are no nodules or mass lesions, although breast density can limit assessment. There are no suspicious calcification clusters or distortion. IMPRESSION: CATEGORY 2-BENIGN. IMPRESSION OF OVERALL ASSESSMENT CATEGORY 2-BENIGN TECHNOLOGIST: JUWAN HANNAH TECHNOLOGIST MEDICAL IMAGING PASSENGER FLAGMAN: PW2 TRANSCRIBE DATE/TIME: Nov 18 2014 4:18P RADIOLOGIST: JOSELIN LONG M.D. READ ON: Nov 18 2014 2:02P ORDERING DR: JANET BOURGEOIS M.D. THIS DOCUMENT HAS BEEN ELECTRONICALLY SIGNED BY: JOSELIN LONG M.D. ON: Nov 19 2014 10:39P Requesting Procedure Note Provider, MD Polo - 03/20/2017 Acc#: [id number] - Screening Mamm W Quique Bi DATE OF EXAM: Nov 18 2014 11:02AM DIAGNOSIS: SCREEN MAMMOGRAPHY NEC CLINICAL HISTORY: SCREENING RESULT: \ BREAST SCREENING, DIGITAL WITH CAD AND TOMOSYNTHESIS, BILATERAL COMPARISON: Comparison is made to 07/28/2011 screening mammographic exam performed at [facility]. This comparison was performed via Clinical Desktop. FINDINGS: Breasts are extremely dense. Parenchymal distribution is stable. There are no nodules or mass lesions, although breast density can limit assessment. There are no suspicious calcification clusters or distortion. IMPRESSION: CATEGORY 2-BENIGN. IMPRESSION OF OVERALL ASSESSMENT CATEGORY 2-BENIGN TECHNOLOGIST: JUWAN HANNAH TECHNOLOGIST MEDICAL IMAGING PASSENGER FLAGMAN: PW2 TRANSCRIBE DATE/TIME: Nov 18 2014 4:18P [...] Most Recently Relevant to Health Maintenance Insurance [facility] CHOICE PLUS [facility] [place] [address] Advance Directives For more information, please contact: [phone] * Full Code (Latest Code Status on File) Date Activated Date Inactivated Comments 08/29/2024 8:04 PM 09/05/2024 9:28 PM * Full Code Date Activated Date Inactivated Comments 08/28/2024 1:27 PM 08/29/2024 5:17 AM * Full Code Date Activated Date Inactivated Comments 12/28/2023 9:19 PM 01/04/2024 7:41 PM * Full Code Date Activated Date Inactivated Comments 12/27/2023 1:19 PM 12/27/2023 4:06 PM Care Teams Headrig Sawyer Relationship Specialty [place] [id number] [facility] [address] [place] [address] PCP - General Internal Medicine 08/27/17 [place] [id number] [facility] [address] [place] [address] Rheumatology 08/09/17
--- OUTSIDE RECORDS SUMMARY | 2025-01-22 12:07 | XMS_ITS | Continuity of Care Document ---
Author Organization [facility] Address [address] [place] [address] Phone Care Team Providers Care Water Conservation Specialist Name Role Phone Unavailable Unavailable Unavailable Advance Directives Directive Yes / No Effective Date File Name No Information Encounters Encounter Description Practice Location Reason(s) For Visit Diagnoses Date Provider Providers Copied on Encounter [facility], [address] [place] [address], [id number], [place] tel:[phone] [facility] No Information No Information Family History Family Member Type Diagnosis Age At Onset No Information Payers Payer name Insurance type Covered democrat ID Authoriza tion(s) No Information Social History Type Description Quantity Date Captured Comments Sex Female Smoking Status No Information Chief Complaint And Reason For Visit No Information Reason For Referral Reason For Referral No Information History Of Present Illness Encounter Date Complaint History Of Prese nt Illness No Information Functional Status Date Functional Assessmen t No Information Instructions Date Instruction Additional Infor mation No Information Assessments Type Assessment Date No Information Patient Care Teams Name Effective Dates (start - stop) Status Members No Information
--- OUTSIDE RECORDS SUMMARY | 2025-01-22 12:07 | XMS_ITS | Referral Summary ---
Author Organization [facility] Address [address] [place] [address] Care Team Providers Care Cereal Maker Name Role Phone Unavailable Primary Care Provider Unavailabl e Source Comments [facility],non-owned Affiliates and Associated Physician Practices is amultiple site organization consisting of ambulatory clinics and hospital sitesin [place], [place], [place] and [place]. This disclosure is being madepursuant to the Care Everywhere program and may not contain all information available regarding this patient. Last updated 18.[facility] Allergies No known active allergies Medications * [...] 03/29/2010 Low back pain 02/07/2010 Overview (09/26/2015): Social History Tobacco Use Types Packs/Day Years [...] 03/30/2010 6:30 AM CDT Plan of Treatment Not on file Advance Directives * Full Code (Latest Code Status on File) Date Activated Date Inactivated Comments 03/30/2010 12:57 PM 04/01/2010 3:32 PM
--- NOTE | 2025-02-06 11:52 | WPDHOLTEREM ---
Holter/Event Monitor Holter/Event Monitor Date of procedure: 01/22/25 Holter/Event Procedure: 3-7 Day Holter Monitor Indications: Tachycardia Conclusion: 1. 3 days holter monitor on 01/22/25. 2. Predominant rhythm is sinus rhythm. HR range 47-200 bpm; average HR 75 bpm. HR at 47 bpm was on 01/25/25 at 5:49 am. 3. There are rare premature supraventricular complexes, rare supraventricular couplets and rare supraventricular triplets. There are 3 episodes of supraventricular tachycardia, fastest at 200 bpm and longest lasting 15 beats. 4. There are rare premature ventricular complexes. No ventricular tachycardia. 5. No significant pauses greater than 3 seconds. 6. Patient reports 2 episodes of symptoms of racing which demonstrate sinus rhythm, HR range 93-116 bpm.
== END 2025-01-22 10:34 | disposition home or self-care (01) ==
PROVIDERS: PCP Nurse Practitioner; Visit Provider Nurse Practitioner
DX: I47.10 Supraventricular tachycardia, unspecified (principal); I49.3 Ventricular premature depolarization; R00.2 Palpitations
CPT/HCPCS: 93242

== ENCOUNTER 2025-03-03 10:30 | Outpatient (CLI) | payer OTHER, SELFPAY ==
[2025-03-03 11:14] LABS: Basophils Percent Auto 0.6 % (0.2-1.2); Eosinophils Absolute Auto 0.1 K/mm3 (0-0.3); Eosinophils Percent Auto 1.4 % (0-4.4); Hematocrit 42.5 % (37.0-47.0); Hemoglobin 14.2 g/dL (12.0-15.0); Immature Granulocyte Absolute 0.01 K/mm3 (0.00-0.031); Immature Granulocyte Percent A 0.2 % (0-0.5); Lymphocytes Percent Auto 35.1 % (18.3-44.2); Mean Corpuscular HGB Conc 33.4 g/dl (32-36); Mean Corpuscular Hemoglobin 28.5 pg (26-34); Mean Corpuscular Volume 85.3 fl (80-100); Mean Platelet Volume 10.8 fl (7.4-10.4); Monocytes Absolute Auto 0.4 K/mm3 (0.1-0.6); Monocytes Percent Auto 8.4 % (2.6-8.5); Neutrophils Absolute Auto 2.8 K/mm3 (1.3-6.7); Neutrophils Percent Auto 54.3 % (45.5-73.1); Platelet Count Result 253 k/mm3 (150-375); Red Blood Count 4.98 M/mm3 (4.2-5.4); Red Cell Distribution Width 12.8 % (11.5-14.5); White Blood Count 5.1 K/mm3 (4.5-10.0)
[2025-03-03 11:24] LABS: Alanine Aminotransferase 26 U/L (6-35); Albumin Level 4.8 g/dL (3.5-5.1); Alkaline Phosphatase 104 U/L (38-126); Anion Gap 10 mmol/L (4-12); Aspartate Amino Transferase 27 U/L (14-36); Bilirubin,Total 0.8 mg/dL (0.2-1.3); Blood Urea Nitrogen 9 mg/dL (7-17); Calcium 9.6 mg/dL (8.4-10.2); Carbon Dioxide 30 mmol/L (22-30); Chloride 101 mmol/L (98-107); Cholesterol 197 mg/dL (0-200); Estimated Glomerular Filt Rate > 60; Glucose 92 mg/dL (65-110); HDL Direct 63 mg/dL; Potassium 4.4 mmol/L (3.4-5.0); Sodium 141 mmol/L (137-145); Triglycerides 67 mg/dL (<150)
--- OUTSIDE RECORDS SUMMARY | 2025-03-03 11:31 | XMS_ITS | Clinical Summary ---
Author Organization [facility] Address [address] [place] [address] Care Team Providers Care Foreign Languages Professor Name Role Phone Patricia King MD Unavailable Power Leon DO Primary Care Provider [phone] Allergies No known active allergies Medications ALPRAZolam (XANAX) 0.5 mg tabletIndications :anxiety,sleep Take 1 tablet (0.5 mg total) by mouth nightly as needed for anxiety or sleep 0 10/22/20 18 Active buPROPion XL (WELLBUTRIN XL) 150 mg 24 hr tabletIndications :Anxiety with Depression Take 1 tablet (150 mg total) by mouth every morning 05/13/20 24 Active dextroamphetamine -amphetamine (ADDERALL) 15 mg tabletIndications :Attention-Defici t Hyperactivity Disorder Take 1 tablet (15 mg total) by mouth every morning 07/22/20 24 Active cyclobenzaprine (FLEXERIL) 10 mg tabletIndications :Muscle Spasm Take 1 tablet (10 mg total) by mouth 3 (three) times a day as needed for muscle spasms (pain) Do not take within 2 hours of Baclofen 30 tablet 09/05/20 24 Active ibuprofen (ADVIL,MOTRIN) 800 mg tablet TAKE 1 TABLET BY MOUTH EVERY 8 TO 12 HOURS NEEDED FOR FEVER OR PAIN 01/12/20 25 Active traZODone (DESYREL) 50 mg tablet TAKE 1/2 TO 1 TABLET AT BEDTIME ORALLY ONCE A DAY NEEDED 01/22/20 25 Active lisinopriL (PRINIVIL,ZESTRIL ) 10 mg tabletIndications :hypertension Take 1 tablet (10 mg total) by mouth every evening 04/08/20 24 025 Discontinued acetaminophen (TYLENOL) 500 mg tabletIndications :Pain Take 2 tablets (1,000 mg total) by mouth every 6 (six) hours as needed for pain 025 Discontinued baclofen (LIORESAL) 10 mg tabletIndications :Muscle spasm Take 1 tablet (10 mg total) by mouth every 8 (eight) hours 30 tablet 09/05/20 24 025 Discontinued lidocaine (ASPERCREME) 4 % adhesive patch,medicated Place 2 patches on the skin daily Do not apply on incision. 12 hours on, 12 hours off 09/05/20 025 Discontinued senna-docusate (PERICOLACE) 8.6-50 mgIndications:con stipation Take 2 tablets by mouth 2 (two) times a day 60 tablet 09/05/20 025 Discontinued gabapentin (NEURONTIN) 600 mg tabletIndications :Postoperative Acute Pain Take 1 tablet (600 mg total) by mouth every 8 (eight) hours 90 tablet 11/04/20 24 025 Discontinued amoxicillin (AMOXIL) 500 mg tablet/capsuleInd ications:Prophyla xis, Medical Take 1 tablet/capsu le (500 mg total) by mouth once for 1 dose Take 4 pills 1 hour prior to procedure 4 tablet/caps ule 02/04/20 25 025 amoxicillin (AMOXIL) 500 mg tablet/capsuleInd ications:Prophyla xis, Medical Take 1 tablet/capsu le (500 mg total) by mouth once for 1 dose Take 4 pills 1 hour prior to procedure 4 tablet/caps ule 02/18/20 25 025 Active Problems Problem Noted Date Diagnosed Date [...] (10/03/2023): Fatigue / Malaise;Recorded Elsewhere: No Location: [facility] Source: EHR Chronic: N Practice ID: [id number] [...] Papanicolaou smear of cervix;Recorded Elsewhere: No Location: [facility] Source: EHR Chronic: N Practice ID: [id number] Billable Time: 09:30:00 AM Carpal tunnel syndrome 06/07/2012 Overview (02/24/2017): Carpal tunnel syndrome of right wrist Iron deficiency anemia 05/21/2012 Overview (10/03/2023): Anemia, Iron Deficiency;Recorded Elsewhere: No Location: [facility] Source: EHR Chronic: N Practice ID: [id number] [...] Encounters Date Type Department Care Team Description 02/17/2025 Orders Only [facility] [address] [place] [address] Medicine 6th [place] [address] [place] [address] Tigre Lucia MD 02/03/2025 8:15 AM CDT Office Visit [facility] [address] [place] [address] Medical Office Building [address] [place] [address] Tigre Lucia MD Idiopathic scoliosis in adult patient (Primary Dx) 02/03/2025 7:40 AM CDT - 02/03/2025 11:59 PM CDT Hospital Encounter [facility] [address] [place] [address] [address] [place] [address] Hx of spinal fusion; Idiopathic scoliosis in adult patient Discharge Disposition: Discharge to home or self care 02/03/2025 Telephone [facility] [address] [facility] Office Building [address] [place] [address] Tigre Lucia MD 02/03/2025 Orders Only [facility] [address] [facility] Office Building [address] [place] [address] Tigre Lucia MD 2024 Orders Only [facility] [address] [facility] 6th [place] [address] [place] [address] Tigre Lucia MD Hx of spinal fusion (Primary Dx) from Last 3 Months Immunizations Immunization Administration Dates Next Due Influenza, Quadrivalent, Spl it, Preservative Free, Intramuscular 09/14/2014 Influenza, Trivalent, IM (MDV) 08/25/2017,2014 Influenza, Trivalent, Preser vative Free, Intramuscular 08/22/2016,08/24/2015,09/07/2014 Tdap 07/12/2015,11/19/2004 Surgical History Surgery Date Site/Laterality Comments 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 HISTORY laminectomy, distectomy, furaminotomy 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 HISTORY had T-lif (titanium rods and pins) TUBAL LIGATION Bilateral tubal ligation TUBAL LIGATION 1996 Bilateral tubal ligation BACK SURGERY 2000 Back surgery TONSILLECTOMY 2012 tonsilectomy 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 HISTORY 2000 laminectomy,distectomy 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 HISTORY 2000 framinotomy 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 HISTORY 2010 t lif 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 HISTORY hospital orbital cellulitis 5-12 HYSTERECTOMY CHOLECYSTECTOMY CENTRAL LINE PLACEMENT > 5 YEARS 12/27/2023 N/A FLUORO GUIDED INJECTION HIP RIGHT 03/04/2024 Right CENTRAL LINE PLACEMENT > 5 YEARS 08/28/2024 N/A Medical History Medical History Date Comments 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 Fernando avila lted. family hx of RA. Hx Other Medical Dr. Steele -Hemat ologist. iron deficiency. Hx Other Medical Dr. Kaur-Endoc rinologist w/u normal. Hx Other Medical Dr. Kayla hernandez gyne. Hx Other Medical 2013 total vaginal h ysterectomy and left salpingo-oopho; [...] drink = 0.6 oz pur e alcohol) [facility] Utilities Answer Date Recorded In the past 12 months has [employer], gas, oil, or water [employer] threatened to shut off services in your [...] often do you attend chur ch or bahai services? 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 Gender Identity Not on file Sexual Orientation [...] CDT Inhaled Oxygen Concentration - - Weight 82.6 kg (182 lb 3.2 oz) 02/03/2025 8:12 A M CDT Height 158.8 cm (5' 2.5 ) 02/03/2025 8:12 AM CDT Body Mass Index 32.79 02/03/2025 8:12 AM CDT Plan of Treatment Health Maintenance Due Date Last Done Comments Hepatitis B Screening 1988 Regular Well Visit/Exam 18-64 1988 Breast Cancer Screening-Mammogram 11/18/2015 11/18/2014 Depression Screening 07/30/2018 07/30/2017, 06/07/2017, 05/29/2017, Additional history exists Zoster Vaccine (1 of 2) 2020 Colon Cancer Screening-Colonoscopy 08/21/2021 08/21/2011, 08/21/2011 DTaP/Tdap/Td Vaccine (3 - Td or Tdap) 07/12/2025 07/12/2015, 11/19/2004 Influenza Vaccine (Season Ended) 2025 08/25/2017, 08/22/2016, 09/15/2015, Additional history exists Colon Cancer Screening-CT Colonography Discontinued 08/21/2011, 08/21/2011 Colon Cancer Screening-DNA Stool Discontinued 08/21/2011, 08/21/2011 Colon Cancer Screening-FIT Discontinued 08/21/2011, Colon Cancer Screening-Sigmoidoscopy Discontinued 08/21/2011, 08/21/2011 Hepatitis C Screening Completed 08/18/2024, 024 Pneumococcal vaccine <65 Aged Out No longer eligible based on patient's age to complete this topic Medical Devices Implanted Type Area Inclined Railway Operator Device Identifier Shelf Expiration Date Model / Serial / Lot Allosource Crushed Chip Frozen Graft 90ml Bone Cancellous [id number] - [id number] Implanted:Qty: 1 on 12/28/2023 by Tigre Lucia MD at [facility] N/A: Spine Lumbar Allosource 04/07/2028 [id number] / / [id number] Depuy Synthes Spine Expedium 1 Inner Monoaxial Spine Screw Set Titanium [id number] - [id number] Implanted:Qty: 20 on 12/28/2023 by Tigre Lucia MD at [facility] N/A: Spine Lumbar Depuy Synthes Spine [id number] / / Depuy Synthes Spine Expedium 8mm 80mm Polyaxial Spine Screw Bone Titanium Nonsterile [id number] - [id number] Implanted:Qty: 2 on 12/28/2023 by Tigre Lucia MD at [facility] N/A: Spine Lumbar Depuy Synthes Spine [id number] / / Depuy Synthes Spine [place] Expedium 9.5mm Closed Wide Blade Hook Spinal Titanium 5.5mm [id number] - [id number] Implanted:Qty: 2 on 12/28/2023 by Tigre Lucia MD at [facility] N/A: Spine Lumbar Depuy Synthes Spine [id number] / / Depuy Synthes Spine [place] Expedium 6mm 50mm Fix Ballinger Spinal Titanium [id number] - [id number] Implanted:Qty: 8 on 12/28/2023 by Tigre Lucia MD at [facility] N/A: Spine Lumbar Depuy Synthes Spine [id number] / / Depuy Synthes Spine [place] Expedium 6mm 45mm Fix Ballinger Spinal Titanium [id number] - [id number] Implanted:Qty: 2 on 12/28/2023 by Tigre Lucia MD at [facility] N/A: Spine Lumbar Depuy Synthes Spine [id number] / / Depuy Synthes Spine [place] Expedium 6mm 35mm Fix Ballinger Spinal Titanium [id number] - [id number] Implanted:Qty: 2 on 12/28/2023 by Tigre Lucia MD at [facility] N/A: Spine Lumbar Depuy Synthes Spine [id number] / / Depuy Synthes Spine [place] Expedium Ballinger Spinal Nut Lock Titanium [id number] - [id number] Implanted:Qty: 12 on 12/28/2023 by Tigre Lucia MD at [facility] N/A: Spine Lumbar Depuy Synthes Spine [id number] / / Depuy Synthes Spine [place] Expedium Slot Spine Mini Left Offset Connector Miles Titanium [id number] - [id number] Implanted:Qty: 2 on 12/28/2023 by Tigre Lucia MD at [facility] N/A: Spine Lumbar Depuy Synthes Spine [id number] / / Depuy Synthes Spine [place] Expedium Slot Spine Mini Right Offset Connector Miles [id number] - [id number] Implanted:Qty: 2 on 12/28/2023 by Tigre Lucia MD at [facility] N/A: Spine Lumbar Depuy Synthes Spine [id number] / / Depuy Synthes Spine [place] Expedium Slot Spine Straight Connector Miles Titanium Ddv [id number] - [id number] Implanted:Qty: 6 on 12/28/2023 by Tigre Lucia MD at [facility] N/A: Spine Lumbar Depuy Synthes Spine [id number] / / Allosource Crushed Chip Frozen Graft 90ml Bone Cancellous [id number] - [id number] Implanted:Qty: 1 on 12/28/2023 by Tigre Lucia MD at [facility] N/A: Spine Lumbar Allosource 04/07/2028 [id number] / / [id number] Depuy Synthes Spine [place] Expedium 55mm Band Clamp Spinal Titanium [id number] - [id number] Implanted:Qty: 2 on 12/28/2023 by Tigre Lucia MD at [facility] N/A: Spine Lumbar Depuy Synthes Spine [id number] / / Depuy Synthes Spine [place] 5.5mm 60mm Transverse Body Spine Connector Miles Nonsterile [id number] - [id number] Implanted:Qty: 2 on 12/28/2023 by Tigre Lucia MD at [facility] N/A: Spine Lumbar Depuy Synthes Spine [id number] / / Depuy Synthes Spine Expedium Viper 2 5.5mm 480mm Straight Miles Spinal [id number] - [id number] Implanted:Qty: 3 on 12/28/2023 by Tigre Lucia MD at [facility] N/A: Spine Lumbar Depuy Synthes Spine [id number] / / Depuy Synthes Spine [place] Expedium 2 Spine Wire Fixation Cocr Titanium [id number] - [id number] Implanted:Qty: 2 on 12/28/2023 by Tigre Lucia MD at [facility] N/A: Spine Lumbar Depuy Synthes Spine [id number] / / Depuy Synthes Spine Exped[place] 5.5mm Open Closed Spine Connector Miles Titanium [id number] - [id number] Implanted:Qty: 2 on 12/28/2023 by Tigre Lucia MD at [facility] N/A: Spine Lumbar Depuy Synthes Spine [id number] / / Allosource Crushed Chip Frozen Graft 60ml Bone Cancellous [id number] - [id number] Implanted:Qty: 1 on 12/28/2023 by Tigre Lucia MD at [facility] N/A: Spine Lumbar Allosource 05/04/2028 [id number] / / [id number] Medtronic Inc Kit Graft Bone Sponge Xlg Infuse 8cc Granules [id number] - [id number] Implanted:Qty: 4 on 12/28/2023 by Tigre Lucia MD at [facility] N/A: Spine Lumbar Medtronic Inc [id number] 05/19/2025 [id number] / / [id number] Abyrx Hemasorb Filled Applicator Surgical Rachel-351 - [id number] Implanted:Qty: 1 on 12/28/2023 by Tigre Lucia MD at [facility] N/A: Spine Lumbar Abyrx 06/18/2026 [id number]-351 / / Depuy Synthes Spine [place] 5mm 35mm Fix Spine Cortical Screw Bone Titanium 5.5mm [id number] - [id number] Implanted:Qty: 1 on 12/28/2023 by Tigre Lucia MD at [facility] N/A: Spine Lumbar Depuy Synthes Spine [id number] / / Depuy Synthes Spine [place] 5mm 40mm Fix Spine Cortical Screw Bone Titanium 5.5mm [id number] - [id number] Implanted:Qty: 3 on 12/28/2023 by Tigre Lucia MD at [facility] N/A: Spine Lumbar Depuy Synthes Spine [id number] / / Depuy Synthes Spine Expedium 6mm 35mm Fix Spine Cortical Screw Bone Titanium 5.5mm [id number] - [id number] Implanted:Qty: 1 on 12/28/2023 by Tigre Lucia MD at [facility] N/A: Spine Lumbar Depuy Synthes Spine [id number] / / Depuy Synthes Spine Exped[place] 6mm 40mm Fix Spine Cortical Screw Bone Titanium 5.5mm [id number] - [id number] Implanted:Qty: 9 on 12/28/2023 by Tigre Lucia MD at [facility] N/A: Spine Lumbar Depuy Synthes Spine [id number] / / Abyrx Hemasorb Filled Applicator Surgical Rachel-351 - [id number] Implanted:Qty: 1 on 08/29/2024 by Tigre Lucia MD at [facility] N/A: Spine Lumbar Abyrx 11/18/2026 RACHEL-351 / / [id number] Medtronic Inc Kit Graft Bone Sponge Xlg Infuse 8cc Granules [id number] - [id number] Implanted:Qty: 4 on 08/29/2024 by Tigre Lucia MD at [facility] N/A: Spine Lumbar Medtronic Inc [id number] 01/17/2026 [id number] / / [id number] Allosource Graft Bone Canc 90ml Crushed Chip Frozen [id number] - [id number] Implanted:Qty: 1 on 08/29/2024 by Tigre Lucia MD at [facility] N/A: Spine Lumbar Allosource 05/14/2029 [id number] / / [id number] Allosource Graft Bone Canc 90ml Crushed Chip Frozen [id number] - [id number] Implanted:Qty: 1 on 08/29/2024 by Tigre Lucia MD at [facility] N/A: Spine Lumbar Allosource 03/10/2029 [id number] / / [id number] Depuy Synthes Spine [place] Expedium 6mm 50mm Fix Ballinger Spinal Titanium [id number] - [id number] Implanted:Qty: 2 on 08/29/2024 by Tigre Lucia MD at [facility] N/A: Spine Lumbar Depuy Synthes Spine [id number] / / Depuy Synthes Spine [place] Expedium 7mm 50mm Fix Ballinger Spinal Titanium [id number] - [id number] Implanted:Qty: 4 on 08/29/2024 by Tigre Lucia MD at [facility] N/A: Spine Lumbar Depuy Synthes Spine [id number] / / Depuy Synthes Spine [place] Expedium 7mm 45mm Fix Ballinger Spinal Titanium [id number] - [id number] Implanted:Qty: 2 on 08/29/2024 by Tigre Lucia MD at [facility] N/A: Spine Lumbar Depuy Synthes Spine [id number] / / Depuy Synthes Spine [place] Expedium 7mm 35mm Fix Ballinger Spinal Titanium [id number] - [id number] Implanted:Qty: 2 on 08/29/2024 by Tigre Lucia MD at [facility] N/A: Spine Lumbar Depuy Synthes Spine [id number] / / Depuy Synthes Spine [place] Expedium Ballinger Spinal Nut Lock Titanium [id number] - [id number] Implanted:Qty: 10 on 08/29/2024 by Tigre Lucia MD at [facility] N/A: Spine Lumbar Depuy Synthes Spine [id number] / / Depuy Synthes Spine Expedium 1 Inner Monoaxial Spine Screw Set Titanium [id number] - [id number] Implanted:Qty: 12 on 08/29/2024 by Tigre Lucia MD at [facility] N/A: Spine Lumbar Depuy Synthes Spine [id number] / / Depuy Synthes Spine Expedium Viper 2 5.5mm 480mm Straight Miles Spinal [id number] - [id number] Implanted:Qty: 3 on 08/29/2024 by Tigre Lucia MD at [facility] N/A: Spine Lumbar Depuy Synthes Spine [id number] / / Depuy Synthes Spine 5.5mm Offset Twister Wire Titanium Latex Free [id number] - [id number] Implanted:Qty: 4 on 08/29/2024 by Tigre Lucia MD at [facility] N/A: Spine Lumbar Depuy Synthes Spine [id number] / / Depuy Synthes Spine [place] Expedium Slot Spine Mini Left Offset Connector Miles Titanium [id number] - [id number] Implanted:Qty: 1 on 08/29/2024 by Tigre Lucia MD at [facility] N/A: Spine Lumbar Depuy Synthes Spine [id number] / / Depuy Synthes Spine [place] Expedium Slot Spine Mini Right Offset Connector Miles [id number] - [id number] Implanted:Qty: 1 on 08/29/2024 by Tigre Lucia MD at [facility] N/A: Spine Lumbar Depuy Synthes Spine [id number] / / Depuy Synthes Spine [place] Expedium 55mm Band Clamp Spinal Titanium [id number] - [id number] Implanted:Qty: 2 on 08/29/2024 by Tigre Lucia MD at [facility] N/A: Spine Lumbar Depuy Synthes Spine [id number] / / Depuy Synthes Spine [place] Expedium Slot Spine Downsize Connector Miles Titanium Ddv [id number] - [id number] Implanted:Qty: 2 on 08/29/2024 by Tigre Lucia MD at [facility] N/A: Spine Lumbar Depuy Synthes Spine [id number] / / Depuy Synthes Spine [place] 5.5mm 60mm Transverse Body Spine Connector Miles Nonsterile [id number] - [id number] Implanted:Qty: 2 on 08/29/2024 by Tigre Lucia MD at [facility] N/A: Spine Lumbar Depuy Synthes Spine [id number] / / Depuy Synthes Spine [place] 5.5mm 2 End To End Spine Connector Miles Nonsterile [id number] - [id number] Implanted:Qty: 2 on 08/29/2024 by Tigre Lucia MD at [facility] N/A: Spine Lumbar Depuy Synthes Spine [id number] / / Depuy Synthes Spine [place] 5.5mm 55mm Line Prebent Miles Spinal Titanium Nonsterile [id number] - [id number] Implanted:Qty: 2 on 08/29/2024 by Tigre Lucia MD at [facility] N/A: Spine Lumbar Depuy Synthes Spine [id number] / / Depuy Synthes Spine [place] Expedium 2 Spine Wire Fixation Cocr Titanium [id number] - [id number] Implanted:Qty: 2 on 08/29/2024 by Tigre Lucia MD at [facility] N/A: Spine Lumbar Depuy Synthes Spine [id number] / / Depuy Synthes Spine [place] 5.5mm Open Closed Spine Connector Miles Titanium [id number] - [id number] Implanted:Qty: 2 on 08/29/2024 by Tigre Lucia MD at [facility] N/A: Spine Lumbar Depuy Synthes Spine [id number] / / Depuy Synthes Spine Exped[place] 9mm 80mm Polyaxial Spine Pedicle Screw Bone Titanium 5.5 [id number] - [id number] Implanted:Qty: 2 on 08/29/2024 by Tigre Lucia MD at [facility] N/A: Spine Lumbar Depuy Synthes Spine [id number] / / Explanted Type Area Inclined Railway Operator Device Identifier Shelf Expiration Date Model / Serial / Lot Depuy Synthes Spine [place] Expedium 6mm 45mm Fix Ballinger Spinal Titanium [id number] - [id number] Explanted:Qty : 1 on 08/29/2024 by Tigre Lucia MD at [facility] N/A: Spine Lumbar Depuy Synthes Spine [id number] / / Procedures Procedure Name Priority Date/Time Associated Diagnosis Comments XR SCOLIOSIS AP LAT Schedule Routine, Read Routine (OP Routine) 02/03/2025 7:57 AM CDT Idiopathic scoliosis in adult patient HEPATITIS PANEL, ACUTE Routine 08/18/2024 5:31 PM CDT Flatback syndrome Sagittal plane imbalance Hx of spinal fusion DIAGNOSTIC MAMMOGRAM BILATERAL W QUIQUE Routine 11/18/2014 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 Unchanged posterior instrumented fusion from T4 to the pelvis, L3 pedicle subtraction osteotomy, and anterior fusion at L5-S1. Electronically signed by: Yeyo Toussaint D.O. Narrative 02/03/2025 8:04 AM CDT EXAMINATION: XR SCOLIOSIS AP AND LATERAL HISTORY: FOLLOW UP SPINE FUSION COMPARISON: 11/05/2024 FINDINGS: Unchanged moderate lumbar levoscoliosis and compensatory thoracic dextrocurvature. No coronal imbalance or pelvic obliquity. No sagittal imbalance. Unchanged posterior instrumented fusion from T4 to the sacrum and bilateral iliac bones, L3 pedicle subtraction osteotomy, and anterior discectomy and fusion at L5-S1. The hardware is intact. No acute fractures. Procedure Note Yeyo Toussaint DO - 02/03/2025 EXAMINATION: XR SCOLIOSIS AP AND LATERAL HISTORY: FOLLOW UP SPINE FUSION COMPARISON: 11/05/2024 FINDINGS: Unchanged moderate lumbar levoscoliosis and compensatory thoracic dextrocurvature. No coronal imbalance or pelvic obliquity. No sagittal imbalance. Unchanged posterior instrumented fusion from T4 to the sacrum and bilateral iliac bones, L3 pedicle subtraction osteotomy, and anterior discectomy and fusion at L5-S1. The hardware is intact. No acute fractures. IMPRESSION: 1. Unchanged posterior instrumented fusion from T4 to the pelvis, L3 pedicle subtraction osteotomy, and anterior fusion at L5-S1. Electronically signed by: Yeyo Toussaint D.O. Tigre Lucia MD IMG XR PROCEDURES Final Result * Hepatitis panel, acute Blood (08/18/2024 5:31 PM CDT) Hep A IgM Nonreactive Nonreactive Hep B core IgM Nonreactive Nonreactive [facility] Hep C Ab Nonreactive Nonreactive [facility] Comment:Antibodies to HCV no t detected. Does NOT exclude the possibility of recent exposure to HCV. Current interpretive data was last revised on 22 HepBsAg Nonreactive Nonreactive [facility] Blood 08/18/2024 5:31 PM CDT 08/18/2024 6:18 PM CDT us Tigre Lucia MD LAB MICROBIOLOGY - GENER AL ORDERABLES Final Result [facility] [place] [address] * DIAGNOSTIC MAMMOGRAM BILATERAL W QUIQUE (11/18/2014 11:02 AM LUBRICATION WORKER) Anatomical Region Laterality Modality Breast Bilateral Mammography 11/18/2014 11:0 2 AM LUBRICATION WORKER Narrative 11/19/2014 10:39 PM LUBRICATION WORKER Acc#: [id number] KHANH [id number] - Screening Mamm W Quique Bi DATE OF EXAM: Nov 18 2014 11:02AM DIAGNOSIS: SCREEN MAMMOGRAPHY NEC CLINICAL HISTORY: SCREENING RESULT: \ BREAST SCREENING, DIGITAL WITH CAD AND TOMOSYNTHESIS, BILATERAL COMPARISON: Comparison is made to 07/28/2011 screening mammographic exam performed at [facility]. This comparison was performed via Clinical Desktop. FINDINGS: Breasts are extremely dense. Parenchymal distribution is stable. There are no nodules or mass lesions, although breast density can limit assessment. There are no suspicious calcification clusters or distortion. IMPRESSION: CATEGORY 2-BENIGN. IMPRESSION OF OVERALL ASSESSMENT CATEGORY 2-BENIGN TECHNOLOGIST: JUWAN HANNAH, TECHNOLOGIST [employer] SALES MANAGER: BETO TRANSCRIBE DATE/TIME: Nov 18 2014 4:18P RADIOLOGIST: JOSELIN LONG M.D. READ ON: Nov 18 2014 2:02P ORDERING DR: JANET BOURGEOIS M.D. THIS DOCUMENT HAS BEEN ELECTRONICALLY SIGNED BY: JOSELIN LONG M.D. ON: Nov 19 2014 10:39P Requesting Procedure Note Provider, MD Polo - 03/20/2017 Acc#: [id number] KHANH [id number] - Screening Mamm W Quique Bi DATE OF EXAM: Nov 18 2014 11:02AM DIAGNOSIS: SCREEN MAMMOGRAPHY NEC CLINICAL HISTORY: SCREENING RESULT: \ BREAST SCREENING, DIGITAL WITH CAD AND TOMOSYNTHESIS, BILATERAL COMPARISON: Comparison is made to 07/28/2011 screening mammographic exam performed at [facility]. This comparison was performed via Clinical Desktop. FINDINGS: Breasts are extremely dense. Parenchymal distribution is stable. There are no nodules or mass lesions, although breast density can limit assessment. There are no suspicious calcification clusters or distortion. IMPRESSION: CATEGORY 2-BENIGN. IMPRESSION OF OVERALL ASSESSMENT CATEGORY 2-BENIGN TECHNOLOGIST: JUWAN HANNAH TECHNOLOGIST MEDICAL IMAGING CHANNEL SALES MANAGER: PWLili TRANSCRIBE DATE/TIME: Nov 18 2014 4:18P RADIOLOGIST: JOSELIN LONG M.D. READ ON: Nov 18 2014 2:02P ORDERING DR: JANET BOURGEOIS M.D. THIS DOCUMENT HAS BEEN ELECTRONICALLY SIGNED BY: JOSELIN LONG M.D. ON: Nov 19 2014 10:39P Requesting Historical Provider IMG MAMMO PROCEDURES Kellie l Result * COLONOSCOPY (08/21/2011) Colonoscopy Normal us Historical Provider HEALTH MAINTENANCE Final Result from Last 3 Months or Most Recently Relevant to Health Maintenance Insurance [facility] Address: [address] [address] [place] [address] [facility] Address: [address] [place] [address] [facility]/PPO Address: [address] [place] [address] Advance Directives For more information, please contact: [phone] * Full Code (Latest Code Status on File) Date Activated Date Inactivated Comments 08/29/2024 8:04 PM 09/05/2024 9:28 PM * Full Code Date Activated Date Inactivated Comments 08/28/2024 1:27 PM 08/29/2024 5:17 AM * Full Code Date Activated Date Inactivated Comments 12/28/2023 9:19 PM 01/04/2024 7:41 PM * Full Code Date Activated Date Inactivated Comments 12/27/2023 1:19 PM 12/27/2023 4:06 PM Care Teams Foreign Languages Professor Relationship Specialty [place] [address] [facility] [address] [place] [address] PCP - General Internal Medicine 08/27/17 [place] [address] [facility] [address] [place] [address] Rheumatology 08/09/17
--- OUTSIDE RECORDS SUMMARY | 2025-03-03 11:31 | XMS_ITS | Continuity of Care Document ---
Author Organization [employer] [employer] Address [address] [place] [address] Phone Care Team Providers Care Machine Rigger Name Role Phone Unavailable Unavailable Unavailable Advance Directives Directive Yes / No Effective Date File Name No Information Encounters Encounter Description Practice Location Reason(s) For Visit Diagnoses Date Provider Providers Copied on Encounter [facility], [address] [place] [address], [address], [place] tel:[phone] [facility] No Information No Information Family History Family Member Type Diagnosis Age At Onset No Information Payers Payer name Insurance type Covered alliance party ID Authoriza tion(s) No Information Social History [...]
--- OUTSIDE RECORDS SUMMARY | 2025-03-03 11:31 | XMS_ITS | Referral Summary ---
Author Organization [facility] Address [address] [place] [address] Care Team Providers Care Social Media Analyst Name Role Phone Patricia King MD Unavailable Power Leon DO Primary Care Provider [phone] Encounters Date Type Department Care Team Description 02/17/2025 Orders Only [facility] Orthopaedic Surgery [address] [facility] 6th [place] [address] [place] [phone] Tigre Lucia MD 02/03/2025 Telephone [facility] Orthopaedic Surgery [address] [place] [address] Medical Office Building [address] [place] [address] Tigre Lucia MD 02/03/2025 Orders Only [facility] Orthopaedic Surgery [address] [place] [address] Office [address] [place] [address] Tigre Lucia MD 02/03/2025 7:40 AM CDT - 02/03/2025 11:59 PM CDT Hospital Encounter [id number] [address] [place] [address] [address] [place] [address] Hx of spinal fusion; Idiopathic scoliosis in adult patient Discharge Disposition: Discharge to home or self care 02/03/2025 8:15 AM CDT Office Visit [facility] Orthopaedic Surgery [address] [place] [address] Medical Office Building [address] [place] [address] Tigre Lucia MD Idiopathic scoliosis in adult patient (Primary Dx) 2024 Orders Only [facility] Orthopaedic Surgery [address] [facility] 6th [place] [address] [place] [address] Tigre Lucia MD Hx of spinal fusion (Primary Dx) from Last 3 Months Allergies No known [...] 12 hours on, 12 hours off 09/05/20 24 025 Discontinued senna-docusate (PERICOLACE) 8.6-50 mgIndications:con stipation Take 2 tablets by mouth 2 (two) times a day 60 tablet 09/05/20 24 025 Discontinued gabapentin (NEURONTIN) 600 mg tabletIndications [...] (10/03/2023): Fatigue / Malaise;Recorded Elsewhere: No Location: [facility] Source: EHR Chronic: N Practice ID: [...] Papanicolaou smear of cervix;Recorded Elsewhere: No Location: [facility] Source: EHR Chronic: N Practice ID: [id number] Billable Time: 09:30:00 AM Carpal tunnel syndrome 06/07/2012 Overview (02/24/2017): Carpal tunnel syndrome of right wrist Iron deficiency anemia 05/21/2012 Overview (10/03/2023): Anemia, Iron Deficiency;Recorded Elsewhere: No Location: [facility] Source: EHR Chronic: N Practice ID: [...] drink = 0.6 oz pur e alcohol) [facility] Utilities Answer Date Recorded In the past 12 months has [employer], [facility], or water [employer] threatened to shut off services in your [...] 01/07/2024 How often do you attend chur or hoahaoism services? Patient declined 01/07/2024 Do you belong to any clubs o r organizations such as pentecostal groups, unions, fraternal or athletic groups, or [...] place to sleep or slept in a retirement (including now)? No 01/07/2024 Personal Safety Answer Date Recorded Have you ever been in or are you currently in a harmful physical or emotional relationship or is someone making you feel afraid or unsafe? Denies 08/31/2024 Comments No Sex and Gender Information Value Date Recorded Sex Assigned at Not on file Legal Sex Female 12:28 AM FRONT END ALIGNMENT SPECIALIST Gender Identity Not on file Sexual Orientation [...] 02/03/2025 8:12 AM CDT Plan of Treatment Not on file Medical Devices Implanted Type Area Residential Property Manager Device Identifier Shelf Expiration Date Model / Serial / Lot Allosource Crushed Chip Frozen Graft 90ml Bone Cancellous [id number] - [id number] Implanted:Qty: 1 on 12/28/2023 by Tigre Lucia MD at [facility] N/A: Spine Lumbar Allosource 04/07/2028 [id number] / / [id number] Depuy Synthes Spine Expedium 1 Inner Monoaxial Spine Screw Set Titanium [id number] - [id number] Implanted:Qty: 20 on 12/28/2023 by Tigre Lucia MD at [facility] N/A: Spine Lumbar Depuy Synthes Spine [id number] / / Depuy Synthes Spine Expedium 8mm 80mm Polyaxial Spine Screw Bone Titanium Nonsterile [id number] - [id number] Implanted:Qty: 2 on 12/28/2023 by Tigre Lucia MD at [facility] N/A: Spine Lumbar Depuy Synthes Spine [id number] / / Depuy Synthes Spine Austin Expedium 9.5mm Closed Wide Blade Hook Spinal Titanium 5.5mm [id number] - [id number] Implanted:Qty: 2 on 12/28/2023 by Tigre Lucia MD at [facility] N/A: Spine Lumbar Depuy Synthes Spine [id number] / / Depuy Synthes Spine Austin Expedium 6mm 50mm Fix Manawa Spinal Titanium [id number] - [id number] Implanted:Qty: 8 on 12/28/2023 by Tigre Lucia MD at [facility] N/A: Spine Lumbar Depuy Synthes Spine [id number] / / Depuy Synthes Spine Austin Expedium 6mm 45mm Fix [place] Spinal Titanium [id number] - [id number] Implanted:Qty: 2 on 12/28/2023 by Tigre Lucia MD at [facility] N/A: Spine Lumbar Depuy Synthes Spine [id number] / / Depuy Synthes Spine Austin Expedium 6mm 35mm Fix [place] Spinal Titanium [id number] - [id number] Implanted:Qty: 2 on 12/28/2023 by Tigre Lucia MD at [facility] N/A: Spine Lumbar Depuy Synthes Spine [id number] / / Depuy Synthes Spine Austin Expedium [place] Spinal Nut Lock Titanium [id number] - [id number] Implanted:Qty: 12 on 12/28/2023 by Tigre Lucia MD at [facility] N/A: Spine Lumbar Depuy Synthes Spine [id number] / / Depuy Synthes Spine Austin Expedium Slot Spine Mini Left Offset Connector Miles Titanium [id number] - [id number] Implanted:Qty: 2 on 12/28/2023 by Tigre Lucia MD at [facility] N/A: Spine Lumbar Depuy Synthes Spine [id number] / / Depuy Synthes Spine Austin Expedium Slot Spine Mini Right Offset Connector Miles [id number] - [id number] Implanted:Qty: 2 on 12/28/2023 by Tigre Lucia MD at [facility] N/A: Spine Lumbar Depuy Synthes Spine [id number] / / Depuy Synthes Spine Austin Expedium Slot Spine Straight Connector Miles Titanium Ddv [id number] - [id number] Implanted:Qty: 6 on 12/28/2023 by Tigre Lucia MD at [facility] N/A: Spine Lumbar Depuy Synthes Spine [id number] / / Allosource Crushed Chip Frozen Graft 90ml Bone Cancellous [id number] - [id number] Implanted:Qty: 1 on 12/28/2023 by Tigre Lucia MD at [facility] N/A: Spine Lumbar Allosource 04/07/2028 [id number] / / [id number] Depuy Synthes Spine Austin Expedium 55mm Band Clamp Spinal Titanium [id number] - [id number] Implanted:Qty: 2 on 12/28/2023 by Tigre Lucia MD at [facility] N/A: Spine Lumbar Depuy Synthes Spine [id number] / / Depuy Synthes Spine Erie 5.5mm 60mm Transverse Body Spine Connector Miles Nonsterile [id number] - [id number] Implanted:Qty: 2 on 12/28/2023 by Tigre Lucia MD at [facility] N/A: Spine Lumbar Depuy Synthes Spine [id number] / / Depuy Synthes Spine Expedium Viper 2 5.5mm 480mm Straight Miles Spinal [id number] - [id number] Implanted:Qty: 3 on 12/28/2023 by Tigre Lucia MD at [facility] N/A: Spine Lumbar Depuy Synthes Spine [id number] / / Depuy Synthes Spine Austin Expedium 2 Spine Wire Fixation Cocr Titanium [id number] - [id number] Implanted:Qty: 2 on 12/28/2023 by Tigre Lucia MD at [facility] N/A: Spine Lumbar Depuy Synthes Spine [id number] / / Depuy Synthes Spine Expedium 5.5mm Open Closed Spine Connector Miles Titanium [id number] - [id number] Implanted:Qty: 2 on 12/28/2023 by Tiger Lucia MD at [facility] N/A: Spine Lumbar Depuy Synthes Spine [id number] / / Allosource Crushed Chip Frozen Graft 60ml Bone Cancellous [id number] - [id number] Implanted:Qty: 1 on 12/28/2023 by Tigre Lucia MD at [facility] N/A: Spine Lumbar Allosource 05/04/2028 [id number] / / [id number] Medtronic Inc Kit Graft Bone Sponge Xlg Infuse 8cc Granules [id number] - [id number] Implanted:Qty: 4 on 12/28/2023 by Tigre Lucia MD at [facility] N/A: Spine Lumbar Medtronic Inc [id number] 05/19/2025 [id number] / / [id number] Abyrx Hemasorb Filled Applicator Surgical Rachel-351 - [id number] Implanted:Qty: 1 on 12/28/2023 by Tigre Lucia MD at [facility] N/A: Spine Lumbar Abyrx 06/18/2026 [id number] / / Depuy Synthes Spine Expedium 5mm 35mm Fix Spine Cortical Screw Bone Titanium 5.5mm [id number] - [id number] Implanted:Qty: 1 on 12/28/2023 by Tigre Lucia MD at [facility] N/A: Spine Lumbar Depuy Synthes Spine [id number] / / Depuy Synthes Spine Expedium 5mm 40mm Fix Spine Cortical Screw Bone Titanium 5.5mm [id number] - [id number] Implanted:Qty: 3 on 12/28/2023 by Tigre Lucia MD at [facility] N/A: Spine Lumbar Depuy Synthes Spine [id number] / / Depuy Synthes Spine Expedium 6mm 35mm Fix Spine Cortical Screw Bone Titanium 5.5mm [id number] - [id number] Implanted:Qty: 1 on 12/28/2023 by Tigre Lucia MD at [facility] N/A: Spine Lumbar Depuy Synthes Spine [id number] / / Depuy Synthes Spine Expedium 6mm 40mm Fix Spine Cortical Screw Bone Titanium 5.5mm [id number] - [id number] Implanted:Qty: 9 on 12/28/2023 by Tigre Lucia MD at [facility] N/A: Spine Lumbar Depuy Synthes Spine [id number] / / Abyrx Hemasorb Filled Applicator Surgical Rachel-351 - [id number] Implanted:Qty: 1 on 08/29/2024 by Tigre Lucia MD at [facility] N/A: Spine Lumbar Abyrx 11/18/2026 RACHEL-351 / / [id number] Medtronic Inc Kit Graft Bone Sponge Xlg Infuse 8cc Granules [id number] - [id number] Implanted:Qty: 4 on 08/29/2024 by Tigre Lucia MD at [facility] N/A: Spine Lumbar Medtronic Inc [id number] 01/17/2026 [id number] / / [id number] Allosource Graft Bone Canc 90ml Crushed Chip Frozen [id number] - [id number] Implanted:Qty: 1 on 08/29/2024 by Tigre Lucia MD at [facility] N/A: Spine Lumbar Allosource 05/14/2029 [id number] / / [id number] Allosource Graft Bone Canc 90ml Crushed Chip Frozen [id number] - [id number] Implanted:Qty: 1 on 08/29/2024 by Tigre Lucia MD at [facility] N/A: Spine Lumbar Allosource 03/10/2029 [id number] / / [id number] Depuy Synthes Spine Austin Expedium 6mm 50mm Fix Manawa Spinal Titanium [id number] - [id number] Implanted:Qty: 2 on 08/29/2024 by Tigre Lucia MD at [facility] N/A: Spine Lumbar Depuy Synthes Spine [id number] / / Depuy Synthes Spine Austin Expedium 7mm 50mm Fix [place] Spinal Titanium [id number] - [id number] Implanted:Qty: 4 on 08/29/2024 by Tigre Lucia MD at [facility] N/A: Spine Lumbar Depuy Synthes Spine [id number] / / Depuy Synthes Spine Austin Expedium 7mm 45mm Fix [place] Spinal Titanium [id number] - [id number] Implanted:Qty: 2 on 08/29/2024 by Tigre Lucia MD at [facility] N/A: Spine Lumbar Depuy Synthes Spine [id number] / / Depuy Synthes Spine Austin Expedium 7mm 35mm Fix [place] Spinal Titanium [id number] - [id number] Implanted:Qty: 2 on 08/29/2024 by Tigre Lucia MD at [facility] N/A: Spine Lumbar Depuy Synthes Spine [id number] / / Depuy Synthes Spine Austin Expedium [place]awa Spinal Nut Lock Titanium [id number] - [id number] Implanted:Qty: 10 on 08/29/2024 by Tigre Lucia MD at [facility] N/A: Spine Lumbar Depuy Synthes Spine [id number] / / Depuy Synthes Spine Expedium 1 Inner Monoaxial Spine Screw Set Titanium [id number] - [id number] Implanted:Qty: 12 on 08/29/2024 by Tigre Lucia MD at [facility] N/A: Spine Lumbar Depuy Synthes Spine [id number] / / Depuy Synthes Spine Expedium Viper 2 5.5mm 480mm Straight Miles Spinal [id number] - [id number] Implanted:Qty: 3 on 08/29/2024 by Tigre Lucia MD at [facility] N/A: Spine Lumbar Depuy Synthes Spine [id number] / / Depuy Synthes Spine 5.5mm Offset Twister Wire Titanium Latex Free [id number] - [id number] Implanted:Qty: 4 on 08/29/2024 by Tigre Lucia MD at [facility] N/A: Spine Lumbar Depuy Synthes Spine [id number] / / Depuy Synthes Spine Austin Expedium Slot Spine Mini Left Offset Connector Miles Titanium [id number] - [id number] Implanted:Qty: 1 on 08/29/2024 by Tigre Lucia MD at [facility] N/A: Spine Lumbar Depuy Synthes Spine [id number] / / Depuy Synthes Spine Austin Expedium Slot Spine Mini Right Offset Connector Miles [id number] - [id number] Implanted:Qty: 1 on 08/29/2024 by Tigre Lucia MD at [facility] N/A: Spine Lumbar Depuy Synthes Spine [id number] / / Depuy Synthes Spine Austin Expedium 55mm Band Clamp Spinal Titanium [id number] - [id number] Implanted:Qty: 2 on 08/29/2024 by Tigre Lucia MD at [facility] N/A: Spine Lumbar Depuy Synthes Spine [id number] / / Depuy Synthes Spine Austin Expedium Slot Spine Downsize Connector Miles Titanium Ddv [id number] - [id number] Implanted:Qty: 2 on 08/29/2024 by Tigre Lucia MD at [facility] N/A: Spine Lumbar Depuy Synthes Spine [id number] / / Depuy Synthes Spine Erie 5.5mm 60mm Transverse Body Spine Connector Miles Nonsterile [id number] - [id number] Implanted:Qty: 2 on 08/29/2024 by Tigre Lucia MD at [facility] N/A: Spine Lumbar Depuy Synthes Spine [id number] / / Depuy Synthes Spine Erie 5.5mm 2 End To End Spine Connector Miles Nonsterile [id number] - [id number] Implanted:Qty: 2 on 08/29/2024 by Tigre Lucia MD at [facility] N/A: Spine Lumbar Depuy Synthes Spine [id number] / / Depuy Synthes Spine Expedium 5.5mm 55mm Line Prebent Miles Spinal Titanium Nonsterile [id number] - [id number] Implanted:Qty: 2 on 08/29/2024 by Tigre Lucia MD at [facility] N/A: Spine Lumbar Depuy Synthes Spine [id number] / / Depuy Synthes Spine Austin Expedium 2 Spine Wire Fixation Cocr Titanium [id number] - [id number] Implanted:Qty: 2 on 08/29/2024 by Tigre Lucia MD at [facility] N/A: Spine Lumbar Depuy Synthes Spine [id number] / / Depuy Synthes Spine Expedium 5.5mm Open Closed Spine Connector Miles Titanium [id number] - [id number] Implanted:Qty: 2 on 08/29/2024 by Tigre Lucia MD at [facility] N/A: Spine Lumbar Depuy Synthes Spine [id number] / / Depuy Synthes Spine Expedium 9mm 80mm Polyaxial Spine Pedicle Screw Bone Titanium 5.5 [id number] - [id number] Implanted:Qty: 2 on 08/29/2024 by Tigre Lucia MD at [facility] N/A: Spine Lumbar Depuy Synthes Spine [id number] / / Explanted Type Area Residential Property Manager Device Identifier Shelf Expiration Date Model / Serial / Lot Depuy Synthes Spine Austin Expedium 6mm 45mm Fix [place] Spinal Titanium [id number] - [id number] Explanted:Qty : 1 on 08/29/2024 by Tigre Lucia MD at [facility] N/A: Spine Lumbar Depuy Synthes Spine [id number] / / Procedures Procedure Name Priority Date/Time Associated Diagnosis Comments XR SCOLIOSIS AP LAT Schedule Routine, Read Routine (OP Routine) 02/03/2025 7:57 AM CDT Idiopathic scoliosis in adult patient HEPATITIS PANEL, ACUTE Routine 08/18/2024 5:31 PM CDT Flatback syndrome Sagittal plane imbalance Hx of spinal fusion DIAGNOSTIC MAMMOGRAM BILATERAL W QUIQUE Routine 11/18/2014 11:02 AM FRONT END ALIGNMENT SPECIALIST HM COLONOSCOPY Routine 08/21/2011 from Last 3 [...] Nonreactive Hep B core IgM Nonreactive Nonreactive [facility] Hep C Ab Nonreactive Nonreactive [facility] Comment:Antibodies to HCV no t detected. Does NOT exclude the possibility of recent exposure to HCV. Current interpretive data was last revised on 22 HepBsAg Nonreactive Nonreactive [facility] Blood 08/18/2024 5:31 PM CDT 08/18/2024 6:18 PM CDT Tigre Lucia MD LAB MICROBIOLOGY - GENER AL ORDERABLES Final Result [facility] Department [place] [address] * DIAGNOSTIC MAMMOGRAM BILATERAL W QUIQUE (11/18/2014 11:02 AM FRONT END ALIGNMENT SPECIALIST) Anatomical Region Laterality Modality Breast Bilateral Mammography 11/18/2014 11:0 2 AM FRONT END ALIGNMENT SPECIALIST Narrative 11/19/2014 10:39 PM FRONT END ALIGNMENT SPECIALIST Acc#: [id number] KHANH [id number] - Screening Mamm W Quique Bi DATE OF EXAM: Nov 18 2014 11:02AM DIAGNOSIS: SCREEN MAMMOGRAPHY NEC CLINICAL HISTORY: SCREENING RESULT: \ BREAST SCREENING, DIGITAL WITH CAD AND TOMOSYNTHESIS, BILATERAL COMPARISON: Comparison is made to 07/28/2011 screening mammographic exam performed at [facility]. This comparison was performed via Clinical Desktop. FINDINGS: Breasts are extremely dense. Parenchymal distribution is stable. There are no nodules or mass lesions, although breast density can limit assessment. There are no suspicious calcification clusters or distortion. IMPRESSION: CATEGORY 2-BENIGN. IMPRESSION OF OVERALL ASSESSMENT CATEGORY 2-BENIGN TECHNOLOGIST: JUWAN HANNAH TECHNOLOGIST MEDICAL IMAGING MINE ENGINEER: PWLili TRANSCRIBE DATE/TIME: Nov 18 2014 4:18P RADIOLOGIST: JOSELIN LONG M.D. READ ON: Nov 18 2014 2:02P ORDERING DR: JANET BOURGEOIS M.D. THIS DOCUMENT HAS BEEN ELECTRONICALLY SIGNED BY: JOSELIN LONG M.D. ON: Nov 19 2014 10:39P Requesting Procedure Note Provider, MD Polo - 03/20/2017 Acc#: [id number] [facility]AN[facility] [id number] - Screening Mamm W Quique Bi DATE OF EXAM: Nov 18 2014 11:02AM DIAGNOSIS: SCREEN MAMMOGRAPHY NEC CLINICAL HISTORY: SCREENING RESULT: \ BREAST SCREENING, DIGITAL WITH CAD AND TOMOSYNTHESIS, BILATERAL COMPARISON: Comparison is made to 07/28/2011 screening mammographic exam performed at [facility]. This comparison was performed via Clinical Desktop. FINDINGS: Breasts are extremely dense. Parenchymal distribution is stable. There are no nodules or mass lesions, although breast density can limit assessment. There are no suspicious calcification clusters or distortion. IMPRESSION: CATEGORY 2-BENIGN. IMPRESSION OF OVERALL ASSESSMENT CATEGORY 2-BENIGN TECHNOLOGIST: JUWAN HANNAH TECHNOLOGIST MEDICAL IMAGING MINE ENGINEER: PW2 TRANSCRIBE DATE/TIME: Nov 18 2014 4:18P RADIOLOGIST: JOSELIN LONG M.D. READ ON: Nov 18 2014 2:02P ORDERING DR: JANET BOURGEOIS M.D. THIS DOCUMENT HAS BEEN ELECTRONICALLY SIGNED BY: JOSELIN LONG M.D. ON: Nov 19 2014 10:39P Requesting us Historical Provider MD SMITH MAMMO PROCEDURES Kellie l Result * COLONOSCOPY (08/21/2011) HM Colonoscopy Normal us Historical Provider HEALTH MAINTENANCE Final Result from Last 3 Months or Most Recently Relevant to Health Maintenance Insurance [facility] CHOICE PLUS [facility] [place] [address] Advance Directives For more information, please contact: [phone] * Full Code (Latest Code Status on File) Date Activated Date Inactivated Comments 08/29/2024 8:04 PM 09/05/2024 9:28 PM * Full Code Date Activated Date Inactivated Comments 08/28/2024 1:27 PM 08/29/2024 5:17 AM * Full Code Date Activated Date Inactivated Comments 12/28/2023 9:19 PM 01/04/2024 7:41 PM * Full Code Date Activated Date Inactivated Comments 12/27/2023 1:19 PM 12/27/2023 4:06 PM Care Teams Social Media Analyst Relationship Specialty [place] [address] [facility] [address] [place] [address] PCP - General Internal Medicine 08/27/17 [place] [address] [facility] [address] [place] [address] Rheumatology 08/09/17
--- OUTSIDE RECORDS SUMMARY | 2025-03-03 11:31 | XMS_ITS | Clinical Summary ---
Author Organization [facility] [employer] Address [address] [place] [address] Care Team Providers Care Dietary Supervisor Name Role Phone Unavailable Primary Care Provider Unavailabl e Source Comments [facility] [employer],non-owned Affiliates and Associated Physician Practices is amultiple site organization consisting of ambulatory clinics and hospital sitesin [place], [place], [place] and [place]. This disclosure is being madepursuant to the Care Everywhere program and may not contain all information available regarding this patient. Last updated 18.[facility] [employer] Allergies No known active allergies Medications * Be aware that medications may not be up to date on this document. Alwaysverify current medications with the patient. 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 Not on file Not on file Not on file Last Filed Vital Signs [...] VACCINE (1 of 2) 2020 COVID-19 VACCINE (1 - 2023-2 5 season) 2024 DEPRESSION SCREENING 11/19/2024 INFLUENZA VACCINE (Season Ended) 2025 09/15/2015, 09/14/2014 HIB VACCINE Aged Out No longer eligi ble based on patient's age to complete this topic HPV VACCINE Aged Out No longer eligi ble based on patient's age to complete this topic MENINGOCOCCAL (Group B) VACCINE SHARED DECISION-MAKING Aged Out No longer eligible based on patient's age to complete this topic MENINGOCOCCAL GROUPS A/C/Y/W VACCINE Aged Out No longer eligible b ased on patient's age to complete this topic Insurance [facility] Advance Directives * Full Code (Latest Code Status on File) Date Activated Date Inactivated Comments 03/30/2010 12:57 PM 04/01/2010 3:32 PM
--- OUTSIDE RECORDS SUMMARY | 2025-03-03 11:31 | XMS_ITS | Encounter Summary ---
Author Organization [facility] Health Address [address] [place] [address] Care Team Providers Care Air Defense Artillery Senior Sergeant Name Role Phone Emery Curiel MD Primary Care Provider Encounter Details Date Type Department Care Team (Late st Contact Info) Description 08/11/2014 [facility] Outpatient Visit [facility] [id number] [place] [address] Emery Curiel MD [address] [place] [address] Social History Tobacco Use Types Packs/Day Years Used Date Smoking Tobacco: Former Cigarettes 0.5 17 Alcohol Use Standard Drinks/Week Comments Yes 0 (1 standard drink = 0.6 oz pur e alcohol) rare Comments No Sex and Gender Information Value Date Recorded Sex Assigned at Not on file Legal Sex Female 1:31 PM [employer] Gender Identity Not on file Sexual Orientation Not on file 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
--- OUTSIDE RECORDS SUMMARY | 2025-03-03 11:31 | XMS_ITS | Encounter Summary ---
Author Organization [facility] Health Address [address] [facility] 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
[2025-03-03 11:35] LABS: LDL Cholesterol Direct 85 mg/dL
[2025-03-03 11:36] LABS: Hemoglobin A1C 5.6 % (<5.7)
[2025-03-03 12:02] LABS: Vitamin D 25 Hydroxy 37.9 ng/mL
== END 2025-03-03 10:31 | disposition home or self-care (01) ==
LOC: ANHGOSHLAB 10:30
PROVIDERS: PCP Nurse Practitioner; Visit Provider Clinical Nurse Specialist
DX: E07.9 Disorder of thyroid, unspecified (principal); E55.9 Vitamin D deficiency, unspecified; R00.2 Palpitations; F41.9 Anxiety disorder, unspecified; I10 Essential (primary) hypertension; Z13.29 Encounter for screening for other suspected endocrine disorder
CPT/HCPCS: 36415; 80053; 80061; 82306; 83036; 84443; 85025

== ENCOUNTER 2025-09-07 08:03 | Outpatient (CLI) | payer OTHER, SELFPAY ==
--- OUTSIDE RECORDS SUMMARY | 2025-04-30 11:30 | XMS_ITS ---
Author Organization [facility] Address [address] [place] [address] Care Team Providers Care Oil Field Operator Name Role Phone Georges ART, Raegan Primary Care Provider Filippo Bojorquez Unavailable [phone] Tereza Blanchard Unavailable [phone] REASON FOR VISIT Confirmed Medications Medication SIG (Take, Route, Frequency, Duration) Notes Start Date End Date Status Lisinopril 10 MG Tablet TAKE 1 TABLET BY MOUTH EVERY DAY Oral; Duration: 90 Days Active ALPRAZolam 0.5 MG Tablet Oral PRN Active Amphetamine-Dextroamphet ER 20 MG Capsule Extended Release 24 Hour 1 capsule in the morning Orally Once a day; Duration: 30 days Active buPROPion HCl ER (XL) 150 MG Tablet Extended Release 24 Hour 1 tablet in the morning Oral Once a day; Duration: 90 days Active traZODone HCl 50 MG Tablet 0.5 to 1 tablet at bedtime Orally Once a day; Duration: 30 days As needed Active Cyclobenzaprine HCl 10 MG Tablet Oral PRN Active Ibuprofen 800 MG Tablet Oral PRN Active Social History Sex Assigned At : Social History Observation Description Sex Assigned At Female Encounters Encounter Location Date Provider Diagnosis viseto [facility] [address] [place] [address] 04/30/2025 Tereza Bell Plan Of Treatment Next Appt Details Provider Name:Tereza Bell, 09/08/2025 09:00:00 AM, [address], [address], [place], [address], Provider Name:Tereza Bell, 09/15/2025 04:00:00 PM, [address], [address], [place], [address], Provider Name:Tereza valderrama Joel, 09/22/2025 09:00:00 AM, [address], [address], [place], [address], Provider Name:Tereza valderrama Joel, 09/29/2025 03:00:00 PM, [address], [address], [place], [address], Provider Name:Tereza Cuellar Dale s Joel, 10/06/2025 10:00:00 AM, [address], [address], [place], [address], Provider Name:Tereza valderrama Joel, 10/13/2025 04:00:00 PM, [address], [facility] [address], [place], [address], Provider Name:Filippo smith, 10/19/2025 08:45:00 AM, [address], [facility] [address], [place], [address], Progress Notes * JAGJIT MERAZ:1970 (54 yo F)Acc No.[id number]:04/30/2025 Patient: JOSSUE NAVAS Provider: Adore BELL LCSW :1970 A ge:54 Y S ex:Female Date:04/30/2025 [facility] [address] [facility] Pcp:Raegan Su OFFICE SERVICES ASSISTANT Data: * Chief Complaints: * C onfirmed * Medications: T akingIbuprofen 800 MG Tablet Oral , Notes to Pharmacist: PRNCyclobenzaprine HCl 10 MG Tablet Oral , Notes to Pharmacist: PRNALPRAZolam 0.5 MG Tablet Oral , Notes to Pharmacist: PRNLisinopril 10 MG Tablet TAKE 1 TABLET BY MOUTH EVERY DAY Oral traZODone HCl 50 MG Tablet 0.5 to 1 tablet at bedtime Orally Once a day As neededbuPROPion HCl ER (XL) 150 MG Tablet Extended Release 24 Hour 1 tablet in the morning Oral Once a day Amphetamine-Dextroamphet ER 20 MG Capsule Extended Release 24 Hour 1 capsule in the morning Orally Once a day Taking Ibuprofen 800 MG Tablet Oral , Notes to Pharmacist: PRNTaking Cyclobenzaprine HCl 10 MG Tablet Oral , Notes to Pharmacist: PRNTaking ALPRAZolam 0.5 MG Tablet Oral , Notes to Pharmacist: PRNTaking Lisinopril 10 MG Tablet TAKE 1 TABLET BY MOUTH EVERY DAY Oral Taking traZODone HCl 50 MG Tablet 0.5 to 1 tablet at bedtime Orally Once a day As neededTaking buPROPion HCl ER (XL) 150 MG Tablet Extended Release 24 Hour 1 tablet in the morning Oral Once a day Taking Amphetamine-Dextroamphet ER 20 MG Capsule Extended Release 24 Hour 1 capsule in the morning Orally Once a day * Electronic signature of Andree Bell LCSW on 09/07/2025 at 08:18 AM CDT Sign off status: Pending Signatures: No Ad Hoc Signature Added * Provider: Adore BELL LCSW Date: 0 04/30/2025 Generated for Sandra Vela on: 1 08:18 AM CDT
--- OUTSIDE RECORDS SUMMARY | 2025-08-10 04:00 | XMS_ITS ---
Author Organization [employer] Address [address] [facility] [address] [place] [address] Care Team Providers Care Platform Worker Name Role Phone Raegan Su NP Primary Care Provider Filippo Bojorquez Unavailable [phone] REASON FOR VISIT 1 month f/u Medications Medication SIG (Take, Route, Frequency, Duration) Notes Start Date End Date Status Amphetamine-Dextroamphet ER 20 MG Capsule Extended Release 24 Hour 1 capsule in the morning Orally Once a day; Duration: 30 days 08/10/2025 Active buPROPion HCl ER (XL) 150 MG Tablet Extended Release 24 Hour 1 tablet in the morning Oral Once a day; Duration: 90 days 08/10/2025 Active traZODone HCl 50 MG Tablet take 1 to 2 tablets at bedtime Orally Once a day; Duration: 90 days As needed 08/10/2025 Active Lisinopril 10 MG Tablet TAKE 1 TABLET BY MOUTH EVERY DAY Oral; Duration: 90 Days Active ALPRAZolam 0.5 MG Tablet Oral PRN Active Cyclobenzaprine HCl 10 MG Tablet Oral PRN Active Ibuprofen 800 MG Tablet Oral PRN Active Social History Tobacco Use: Social History Observation Description Date Details (start date - stop date) Former Smoker 11/19/1988 - NA Sex Assigned At : Social History Observation Description Sex Assigned At Female Social History Tobacco Use: Social Info Question Answer Notes Tobacco Control (Standard) Tobacco use: Former smoker When did you stop smoking? 2010 How long has it been since you last smoked? Greater than 10 years When did you start smoking? 11/19/1988 Additional Details Category Social Info Options Details Drug/Alcohol: Do you smoke marijuana? Den ies Do you drink alcohol? No Encounters Encounter Location Date Provider Diagnosis Software [address] [place] [address] 08/10/2025 Filippo Briceño Nicotine use Z72.0 ; ADHD (attention deficit hyperactivity disorder), combined type F90.2 ; Generalized anxiety disorder F41.1 ; Major depressive disorder F32.9 and Insomnia G47.00 Assessments Encounter Date Diagnosis (ICD Code) Assessment Notes Treatment Notes Treatment Clinical Notes Section Notes 08/10/2025 Nicotine use (ICD-10 - Z72.0) 08/10/2025 ADHD (attention deficit hyperactivity disorder), combined type (ICD-10 - F90.2) 08/10/2025 Generalized anxiety disorder (ICD-10 - F41.1) 08/10/2025 Major depressive disorder (ICD-10 - F32.9) 08/10/2025 Insomnia (ICD-10 - G47.00) Plan Of Treatment Medication Medication Name Sig Start Date Stop Date Notes Amphetamine-Dextroamphet ER 20 MG Capsule Extended Release 24 Hour 1 capsule in the morning Orally Once a day; Duration: 30 days 08/10/2025 buPROPion HCl ER (XL) 150 MG Tablet Extended Release 24 Hour 1 tablet in the morning Oral Once a day; Duration: 90 days 08/10/2025 traZODone HCl 50 MG Tablet take 1 to 2 t ablets at bedtime Orally Once a day; Duration: 90 days 08/10/2025 Next Appt Details Follow Up: 3 Months, Reason: f/u adhd, insomnia Provider Name:Tereza Maldonado, 09/08/2025 09:00:00 AM, [address], [facility] [address], [place], [address], Provider Name:Tereza Maldonado, 09/15/2025 04:00:00 PM, [address], [address], [place], [address], Provider Name:Tereza Maldonado, 09/22/2025 09:00:00 AM, [address], [facility] [address], [place], [address], Provider Name:Tereza Maldonado, 09/29/2025 03:00:00 PM, [address], [address], [address], Provider Name:Tereza valderrama Joel, 10/06/2025 10:00:00 AM, [address], [address], [address], Provider Name:Tereza valderrama Joel, 10/13/2025 04:00:00 PM, [address], [address], [address], Provider Name:Filippo smith, 10/19/2025 08:45:00 AM, [address], [address], [address], History and Physical Notes * HPI (History of Present Illness) Category Sub-Category Detail Notes Category Not es History of Presenting Problem Anxiety Onset: years ago, Associated Symptoms: wakes up thinking the worst, ruminations no obsessions, no compulsions Pt was seen today and Urine drug screen was done Depression screening done Depression Onset: years ago, as a teenager. she feels like pours from an empty cup, has to take care of everyone, people come to her for stuff. States she is negative, battles her own mind every morning. Feels like wears a mask. takes things personally. Sleep disturbance difficulty falling a sleep, takes xanax to help fall asleep Psychosis no psychosis Mood lability holds onto things un til she expolodes ADHD Associated Symptoms: cant focus, has to listen to the same things, Onset: years ago PTSD moved frequently as a child, father was alcoholic, mom had bipolar d/o Appetite states she eats carb s and meat Medication Side Effects she has difficul ty with medication adherence, doesn't like to take medication Self-harm history no Depression screening PHQ-9 Little inte rest or pleasure in doing things: Not at all Feeling down, depressed, or hopeless: No t at all Trouble falling or staying asleep, or sl eeping too much: Not at all Feeling tired or having little energy: N ot at all Feeling bad about yourself o r that you are a failure, or have let yourself or your family down: Not at all Trouble concentrating on thi ngs, such as reading the newspaper or watching television: Several days Moving or speaking so slowly that other people could have noticed; or the opposite, being so fidgety or restless that you have been moving around a lot more than usual: Not at all Thoughts that you would be b arabella off or of hurting yourself in some way: Not at all Depression Screening TIERRA-7 (2018 Edition) Feelin g nervous, anxious, or on edge: Not at all Not being able to stop or control worryi ng: Not at all Worrying too much about different things : Several days Trouble relaxing: Not at all Being so restless that it is hard to sit still: Not at all Becoming easily annoyed or irritable: No t at all Feeling afraid as if something awful lata ht happen: Not at all Total TIERRA-7 Score: 1 If you checked any problems, how difficult have they made it for you to do your work, take care of things at home, or get along with other people?: Not difficult at all Interpretation of Total: (0 to 4) No Anx iety [place]-Suicide Severity Rating Scale Suicide Risk (CSRS-screener) in the past one month Have you wished you were or wished you could go to sleep and not wake up?: No in the past one month Have y ou actually had any thoughts of killing yourself?: No Have you ever done anything, started to do anything, or prepared to do anything to end your life?: No Examination Category Sub-Category Detail Notes Category Not es Psychiatry Appearance: well-groomed, well-nourished , ... Attitude: cooperative Psychomotor activity: within normal rang e Attention: good Degree of awareness of surroundings: wit hin normal limits Orientation: awake, alert and huang ented x 3 Affect / mood: appropriate, full ra nge Speech / language: appropriate pitch/mo dulation, clear and coherent, normal rate, volume, and articulation (RVR), proper grammar used Insight: good Judgement: good Thought process: intact Thought content: appropriate Perceptual disorders: no perceptual diso rder noted Suicidal ideation: none Intellectual functioning: no impairment noted Memory status: no impairment noted Delusions: no Hallucinations: no Progress Notes * JAGJIT MERAZ:1970 (54 yo F)Acc No.[id number]:08/10/2025 Patient: JOSSUE NAVAS Provider: MICHAEL FIGUEROA :1970 A ge:54 Y S ex:Female Date:08/10/2025 Address:[facility] [address] [facility] Pcp:Raegan Su NP Subjective: * Chief Complaints: * 1 month f/u * HPI: C ontributing Factors: She is . Has 4 children. Has a 11 y/o foster child. 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 Father was an alcoholic, mother had bipolar d/o. States she doesnt have memories until age [age]. H istory of Presenting Problem: Depression O nset: years ago, as a teenager. s he feels like pours from an empty cup, has to take care of everyone, people come to her for stuff. States she is negative, battles her own mind every morning. Feels like wears a mask. takes things personally. Anxiety O nset: years ago, Associated Symptoms: wakes up thinking the worst, ruminations n o obsessions, no compulsions. Sleep disturbance d ifficulty falling asleep, takes xanax to help fall asleep. Appetite s tates she eats carbs and meat. Mood lability h olds onto things until she expolodes. Psychosis n o psychosis. ADHD A ssociated Symptoms: cant focus, has to listen to the same things, Onset: years ago. Medication Side Effects s he has difficulty with medication adherence, doesn't like to take medication. PTSD m anais frequently as a child, father was alcoholic, mom had bipolar d/o. Self-harm history n o. Pt was seen today and Urine drug screen was doneDepression screening done. D epression Screening: TIERRA-7 (2018 Edition) F eeling nervous, anxious, or on edge N ot at all N ot being able to stop or control worrying?Not at all W orrying too much about different things S everal days T rouble relaxing N ot at all B eing so restless that it is hard to sit still N ot at all B ecoming easily annoyed or irritable N ot at all F eeling afraid as if something awful might happen N ot at all T otal TIERRA-7 Score 1 I f you checked any problems, how difficult have they made it for you to do your work, take care of things at home, or get along with other people? N ot difficult at all I nterpretation of Total ( 0 to 4) No Anxiety [place]-Suicide Severity Rating Scale: Suicide Risk (CSRS-screener) i n the past one month Have you wished you were or wished you could go to sleep and not wake up? N o i n the past one month Have you actually had any thoughts of killing yourself? N o H ave you ever done anything, started to do anything, or prepared to do anything to end your life? N o D epression screening: PHQ-9 L ittle interest or pleasure in doing things?Not at all F eeling down, depressed, or hopeless N ot at all T rouble falling or staying asleep, or sleeping too much N ot at all F eeling tired or having little energy N ot at all F eeling bad about yourself or that you are a failure, or have let yourself or your family down N ot at all T rouble concentrating on things, such as reading the newspaper or watching television S everal days M oving or speaking so slowly that other people could have noticed; or the opposite, being so fidgety or restless that you have been moving around a lot more than usual N ot at all T houghts that you would be better off or of hurting yourself in some way N ot at all * Social History: T obacco Use: T obacco Control (Standard) T obacco use: F ormer smoker W hen did you stop smoking? 2 010 H ow long has it been since you last smoked??Greater than 10 years W hen did you start smoking? D rug/Alcohol: D o you smoke marijuana?: Denies. Do you drink alcohol?: No. S ocial History Verified. * Medications: T akingIbuprofen 800 MG Tablet Oral , Notes to Pharmacist: PRNCyclobenzaprine HCl 10 MG Tablet Oral , Notes to Pharmacist: PRNALPRAZolam 0.5 MG Tablet Oral , Notes to Pharmacist: PRNLisinopril 10 MG Tablet TAKE 1 TABLET BY MOUTH EVERY DAY Oral traZODone HCl 50 MG Tablet take 1 to 2 tablets at bedtime Orally Once a day As neededbuPROPion HCl ER (XL) 150 MG Tablet Extended Release 24 Hour 1 tablet in the morning Oral Once a day Amphetamine-Dextroamphet ER 20 MG Capsule Extended Release 24 Hour 1 capsule in the morning Orally Once a day Medication List reviewed and reconciled with the patientTaking Ibuprofen 800 MG Tablet Oral , Notes to Pharmacist: PRNTaking Cyclobenzaprine HCl 10 MG Tablet Oral , Notes to Pharmacist: PRNTaking ALPRAZolam 0.5 MG Tablet Oral , Notes to Pharmacist: PRNTaking Lisinopril 10 MG Tablet TAKE 1 TABLET BY MOUTH EVERY DAY Oral Taking traZODone HCl 50 MG Tablet take 1 to 2 tablets at bedtime Orally Once a day As neededTaking buPROPion HCl ER (XL) 150 MG Tablet Extended Release 24 Hour 1 tablet in the morning Oral Once a day Taking Amphetamine-Dextroamphet ER 20 MG Capsule Extended Release 24 Hour 1 capsule in the morning Orally Once a day Medication List reviewed and reconciled with the patient Objective: * Examination: P sychiatry: Appearance: w ell-groomed, well-nourished, .... Affect / mood: a ppropriate, full range. Attention: g ood. Attitude: c ooperative. Suicidal ideation: n one. Memory status: n o impairment noted. Degree of awareness of surroundings: w ithin normal limits.? Delusions: n o. Hallucinations: n o. Insight: g ood. Intellectual functioning: n o impairment noted. Judgement: g ood. Orientation: a wake, alert and oriented x 3. Perceptual disorders: n o perceptual disorder noted. Psychomotor activity: w ithin normal range. Speech / language: a ppropriate pitch/modulation, clear and coherent, normal rate, volume, and articulation (RVR), proper grammar used. Thought content: a ppropriate. Thought process: i ntact. Assessment: * Assessment: 1. A DHD (attention deficit hyperactivity disorder), combined type - F90.2 (Primary) 2 . N icotine use - Z72.0 3 . G eneralized anxiety disorder - F41.1? 4. M ajor depressive disorder - F32.9 5 . I nsomnia - G47.00? Plan: * Treatment: 2. M clarior depressive disorder Continue buPROPion HCl ER (XL) Tablet Extended Release 24 Hour, 150 MG, 1 tablet in the morning, Oral, Once a day, 90 days, 90 Tablet, Refills 1. 3. I nsomnia Refill traZODone HCl Tablet, 50 MG, take 1 to 2 tablets at bedtime, Orally, Once a day As needed, 90 days, 180, Refills 1. * Procedure Codes: 1 036F TOBACCO NON-USER * Follow Up: 3 Months (Reason: f/u adhd, insomnia) Billing Information: * Visit Code: 23872 OFFICE OUTPATIENT VISIT 25 MINUTES DETAILED HISTORY AND EXAM/MODERATE MEDICAL DECISION MAKING. * Procedure Codes: 1036F TOBACCO NON-USER. * Electronic signature of MICHAEL Patterson on 09/07/2025 at 08:22 AM CDT Sign off status: Pending * Provider: MICHAEL FIGUEROA Date: 0 08/10/2025 Generated for Sandra mccall/Sterling/Eufemia on: 1 08:22 AM CDT
--- OUTSIDE RECORDS SUMMARY | 2025-09-01 10:00 | XMS_ITS ---
Author Organization [facility] [employer] [facility] Address [address] [place] [address] Care Team Providers Care Air Cargo Specialist Supervisor Name Role Phone Georges ART, Raegan Primary Care Provider Filippo Bojorquez Unavailable [phone] Tereza Blanchard Unavailable [phone] REASON FOR VISIT EMDR Social History Sex Assigned At : Social History Observation Description Sex Assigned At Female Encounters Encounter Location Date Provider Diagnosis [facility] [employer] [place] [id number] [facility] [address] [facility] [address] [place] [address] 09/01/2025 Tereza Bell Plan Of Treatment Next Appt Details Provider Name:Tereza Bell, 09/08/2025 09:00:00 AM, [address], [address], [address], Provider Name:Tereza Bell, 09/15/2025 04:00:00 PM, [address] [facility], [address], [address], Provider Name:Tereza Bell, 09/22/2025 09:00:00 AM, [address], [address], [address], Provider Name:Tereza Bell, 09/29/2025 03:00:00 PM, [address], [address], [address], Provider Name:Tereza Bell, 10/06/2025 10:00:00 AM, [address], [address], [address], Provider Name:Tereza Bell, 10/13/2025 04:00:00 PM, [address], [facility] [address], [place], [address], Provider Name:Filippo Lydia smith, 10/19/2025 08:45:00 AM, [address], [place] [address], [place], [address], Progress Notes * IVELISSE MERAZB:1970 (54 yo F)Acc No.[id number]:09/01/2025 Patient: JOSSUE NAVAS Provider: Adore BELL LCSW :1970 A ge:54 Y S ex:Female Date:09/01/2025 Address:[address] [place] [address] [facility] Pcp:Raegan Su RESTAURANT MGR Data: * Chief Complaints: * E MDR Billing Information: * Procedure Codes: * Electronic signature of Andree Bell LCSW on 09/07/2025 at 08:19 AM CDT Sign off status: Pending Signatures: No Ad Hoc Signature Added * Provider: Adore BELL LCSW Date: Generated for Sandra mccall/Sterling/Yakelinitting on: 08:19 AM CDT
--- OUTSIDE RECORDS SUMMARY | 2025-09-07 08:18 | XMS_ITS | Encounter Summary ---
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
--- OUTSIDE RECORDS SUMMARY | 2025-09-07 08:19 | XMS_ITS | Encounter Summary ---
Author Organization [facility] Health Address [address] [place] [address] Care Team Providers Care Wood Pole Treater Name Role Phone Emery Curiel MD Primary Care Provider Encounter Details Date Type Department Care Team (Late st Contact Info) Description 08/11/2014 [facility] Outpatient Visit [facility] [id number] [place] [id number] Emery Curiel MD [address] [place] [id number] Social History Tobacco Use Types Packs/Day Years Used Date Smoking Tobacco: Former Cigarettes 0.5 17 Alcohol Use Standard Drinks/Week Comments Yes 0 (1 standard drink = 0.6 oz pur e alcohol) rare Comments No Sex and Gender Information Value Date Recorded Sex Assigned at Not on file 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
--- OUTSIDE RECORDS SUMMARY | 2025-09-07 08:20 | XMS_ITS | Clinical Summary ---
Author Organization [facility] Address [address] [facility] [place] [address] Care Team Providers Care Harp Action Assembler Name Role Phone Unavailable Primary Care Provider Unavailabl e Source Comments [facility],non-owned Affiliates and Associated Physician Practices is amultiple site organization consisting of ambulatory clinics and hospital sitesin [place], [place], [place] and [place]. This disclosure is being madepursuant to the Care Everywhere program and may not contain all information available regarding this patient. 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 Gender Identity Not on file Sexual Orientation [...] 12:01 AM CDT Height 162.6 cm (5' 4) 03/30/2010 6:30 AM CDT Body Mass Index [...] SCREENING 1970 LIPID TESTING 1970 MAMMOGRAM 1970 HIV SCREENING 1985 HEPATITIS C SCREENING 12/18/1988 DTAP/TDAP/TD VACCINES (1 - Tdap) 1989 HEPATITIS B VACCINE (1 of 3 - 19+ 3-dose series) 1989 PNEUMOCOCCAL VACCINE 50+ (1 of 1 - PCV) 2020 ZOSTER VACCINE (1 of 2) 2020 DEPRESSION SCREENING 11/19/2024 COVID-19 VACCINE (1 - 2023-2 5 season) 2025 INFLUENZA VACCINE (#1) 2025 5, 09/14/2014 HIB VACCINE Aged Out No longer [...] patient's age to complete this topic Insurance [facility] Advance Directives * Full Code (Latest Code Status on File) Date Activated Date Inactivated Comments 03/30/2010 12:57 PM 04/01/2010 3:32 PM
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
--- OUTSIDE RECORDS SUMMARY | 2025-09-07 08:22 | XMS_ITS | Clinical Summary ---
Author Organization [facility] Address [address] [place] [address] Care Team Providers Care Marketing Communications Coordinator Name Role Phone Patricia King MD Unavailable Power Leon DO Primary Care Provider Allergies No known active allergies Medications ALPRAZolam (XANAX) 0.5 mg tabletIndicatio ns:anxiety,slee p Take 1 tablet (0.5 mg total) by mouth nightly as needed for anxiety or sleep 0 10/22/2018 Active buPROPion XL (WELLBUTRIN XL) 150 mg 24 hr tabletIndicatio ns:Anxiety with Depression Take 1 tablet (150 mg total) by mouth every morning 05/13/2024 Active cyclobenzaprine (FLEXERIL) 10 mg tabletIndicatio ns:Muscle Spasm Take 1 tablet (10 mg total) by mouth 3 (three) times a day as needed for muscle spasms (pain) Do not take within 2 hours of Baclofen 30 tablet 09/05/2024 Active ibuprofen (ADVIL,MOTRIN) 800 mg tablet TAKE 1 TABLET BY MOUTH EVERY 8 TO 12 HOURS NEEDED FOR FEVER OR PAIN 01/12/2025 Active traZODone (DESYREL) 50 mg tablet TAKE 1/2 TO 1 TABLET AT BEDTIME ORALLY ONCE A DAY NEEDED 01/21/2025 Active dextroamphetami ne-amphetamine XR (ADDERALL XR) 20 mg 24 hr capsule Take 1 capsule (20 mg total) by mouth every morning 07/06/2025 Active Active Problems Problem Noted Date Diagnosed [...] (10/03/2023): Fatigue / Malaise;Recorded Elsewhere: No Location: [facility] Source: EHR Chronic: N Practice ID: [id number] [...] Papanicolaou smear of cervix;Recorded Elsewhere: No Location: [facility] Source: EHR Chronic: N Practice ID: [id number] Billable Time: 09:30:00 AM Carpal tunnel syndrome 06/07/2012 Overview (02/24/2017): Carpal tunnel syndrome of right wrist Iron deficiency anemia 05/21/2012 Overview (10/03/2023): Anemia, Iron Deficiency;Recorded Elsewhere: No Location: [facility] Source: EHR Chronic: N Practice ID: [id number] [...] Encounters Date Type Department Care Team Description 07/22/2025 9:15 AM CDT Office Visit [facility] Medicine Orthopaedic Surgery [address] [facility] [address] [place] [address] [place] [address] Tigre Lucia MD Idiopathic scoliosis in adult patient (Primary Dx); Acute pain of right shoulder; Trochanteric bursitis of right hip 07/22/2025 8:45 AM CDT - 07/22/2025 11:59 PM CDT Hospital Encounter [facility] [address] [place] [address] Idiopathic scoliosis in adult patient Discharge Disposition: Discharge to home or self care from Last 3 Months Immunizations Immunization Administration Dates Next Due Influenza, Quadrivalent, Spl it, Preservative Free, Intramuscular 09/14/2014 Influenza, Trivalent, IM (MDV) 08/25/2017,2014 Influenza, Trivalent, Preser vative Free, Intramuscular 08/22/2016,08/24/2015,09/07/2014 Tdap 07/12/2015,11/19/2004 Surgical History Surgery Date Site/Laterality Comments 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 HISTORY laminectomy, distectomy, furaminotomy 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 HISTORY had T-lif (titanium rods and pins) TUBAL LIGATION Bilateral tubal ligation TUBAL LIGATION 1996 Bilateral tubal ligation BACK SURGERY 2000 Back surgery TONSILLECTOMY 2012 tonsilectomy 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 HISTORY 2001 laminectomy,distectomy 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 HISTORY 2000 framinotomy 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 HISTORY 2010 t lif 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 HISTORY hospital orbital cellulitis 5-12 HYSTERECTOMY CHOLECYSTECTOMY CENTRAL LINE PLACEMENT > 5 YEARS 12/27/2023 N/A FLUORO GUIDED INJECTION HIP RIGHT 03/04/2024 Right CENTRAL LINE PLACEMENT > 5 YEARS 08/28/2024 N/A Medical History Medical History Date Comments 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 No 01/07/2024 Social Connection and Isolation Panel Answer Date Recorded In a typical week, how many times do you talk on the phone with family, friends, or neighbors? Three times a week 01/07/2024 How often do you get togethe r with friends or relatives? Three times a week 01/07/2024 How often do you attend chur ch or advent services? Patient declined 01/07/2024 Do you belong to any clubs o r organizations such as cheondoism groups, unions, fraternal or athletic groups, or school groups? Patient declined 01/07/2024 How often do you attend meet ings of the clubs or organizations you belong to? Patient declined 01/07/2024 Are you , , di vorced, , never , or living with a partner? 01/07/2024 Overall Financial Resource Strain (CARDIA) Answe r [...] in a halfway (including now)? No 01/07/2024 AUDIT-C Answer Date Recorded Q1: How often do you have a drink containing alcohol? Never 07/22/2025 Q2: How many drinks containi ng alcohol do you have on a typical day when you are drinking? Patient does not drink Q3: How often do you have si x or more drinks on one occasion? Never 07/22/2025 Personal Safety Answer Date Recorded Have you ever been in or are you currently in a harmful physical or emotional relationship or is someone making you feel afraid or unsafe? 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 Gender Identity Not on file Sexual Orientation [...] CDT Inhaled Oxygen Concentration - - Weight 79.3 kg (174 lb 12.8 oz) 07/22/2025 9:34 AM CDT Height 157.5 cm (5' 2) 07/22/2025 9:34 AM CDT Body Mass Index 31.97 07/22/2025 9:34 AM CDT Plan of Treatment Health Maintenance Due Date Last Done Comments Hepatitis B Screening 1988 Regular Well Visit/Exam 18-64 1988 Breast Cancer Screening-Mammogram 11/18/2015 11/18/2014 Depression Screening 07/30/2018 07/30/2017, 06/07/2017, 05/29/2017, Additional history exists Zoster Vaccine (1 of 2) 2020 Colon Cancer Screening-Colonoscopy 08/21/2021 08/21/2011, 08/21/2011 DTaP/Tdap/Td Vaccine (3 - Td or Tdap) 07/12/2025 07/12/2015, 11/19/2004 Influenza Vaccine (#1) 2025 7, 08/22/2016, 09/15/2015, Additional history exists Colon Cancer Screening-CT Colonography Discontinued 08/21/2011, 08/21/2011 Colon Cancer Screening-DNA Stool Discontinued 08/21/2011, 08/21/2011 Colon Cancer Screening-FIT Discontinued 08/21/2011, Colon Cancer Screening-Sigmoidoscopy Discontinued 08/21/2011, 08/21/2011 Hepatitis C Screening Completed 08/18/2024, 024 Pneumococcal vaccine <65 Aged Out No longer eligible based on patient's age to complete this topic Medical Devices Implanted Type Area Capsule Filling Machine Operator Device Identifier Shelf Expiration Date Model / Serial / Lot Allosource Crushed Chip Frozen Graft 90ml Bone Cancellous [id number] - [id number] Implanted:Qty: 1 on 12/28/2023 by Tigre Lucia MD at [facility] N/A: Spine Lumbar Allosource 04/07/2028 [id number] / / [id number] Depuy Synthes Spine Expedium 1 Inner Monoaxial Spine Screw Set Titanium [id number] - [id number] Implanted:Qty: 20 on 12/28/2023 by Tigre Lucia MD at [facility] N/A: Spine Lumbar Depuy Synthes Spine [id number] / / Depuy Synthes Spine Expedium 8mm 80mm Polyaxial Spine Screw Bone Titanium Nonsterile [id number] - [id number] Implanted:Qty: 2 on 12/28/2023 by Tigre Lucia MD at [facility] N/A: Spine Lumbar Depuy Synthes Spine [id number] / / Depuy Synthes Spine [place] Expedium 9.5mm Closed Wide Blade Hook Spinal Titanium 5.5mm [id number] - [id number] Implanted:Qty: 2 on 12/28/2023 by Tigre Lucia MD at [facility] N/A: Spine Lumbar Depuy Synthes Spine [id number] / / Depuy Synthes Spine [place] Expedium 6mm 50mm Fix [place] Spinal Titanium [id number] - [id number] Implanted:Qty: 8 on 12/28/2023 by Tigre Lucia MD at [facility] N/A: Spine Lumbar Depuy Synthes Spine [id number] / / Depuy Synthes Spine [place] Expedium 6mm 45mm Fix [place] Spinal Titanium [id number] - [id number] Implanted:Qty: 2 on 12/28/2023 by Tigre Lucia MD at [facility] N/A: Spine Lumbar Depuy Synthes Spine [id number] / / Depuy Synthes Spine [place] Expedium 6mm 35mm Fix [place] Spinal Titanium [id number] - [id number] Implanted:Qty: 2 on 12/28/2023 by Tigre Lucia MD at [facility] N/A: Spine Lumbar Depuy Synthes Spine [id number] / / Depuy Synthes Spine [place] Expedium [place] Spinal Nut Lock Titanium [id number] - [id number] Implanted:Qty: 12 on 12/28/2023 by Tigre Lucia MD at [facility] N/A: Spine Lumbar Depuy Synthes Spine [id number] / / Depuy Synthes Spine [place] Expedium Slot Spine Mini Left Offset Connector Miles Titanium [id number] - [id number] Implanted:Qty: 2 on 12/28/2023 by Tigre Lucia MD at [facility] N/A: Spine Lumbar Depuy Synthes Spine [id number] / / Depuy Synthes Spine [place] Expedium Slot Spine Mini Right Offset Connector Miles [id number] - [id number] Implanted:Qty: 2 on 12/28/2023 by Tigre Lucia MD at [facility] N/A: Spine Lumbar Depuy Synthes Spine [id number] / / Depuy Synthes Spine [place] Expedium Slot Spine Straight Connector Miles Titanium Ddv [id number] - [id number] Implanted:Qty: 6 on 12/28/2023 by Tigre Lucia MD at [facility] N/A: Spine Lumbar Depuy Synthes Spine [id number] / / Allosource Crushed Chip Frozen Graft 90ml Bone Cancellous [id number] - [id number] Implanted:Qty: 1 on 12/28/2023 by Tigre Lucia MD at [facility] N/A: Spine Lumbar Allosource 04/07/2028 [id number] / / [id number] Depuy Synthes Spine [place] Expedium 55mm Band Clamp Spinal Titanium [id number] - [id number] Implanted:Qty: 2 on 12/28/2023 by Tigre Lucia MD at [facility] N/A: Spine Lumbar Depuy Synthes Spine [id number] / / Depuy Synthes Spine Lexa 5.5mm 60mm Transverse Body Spine Connector Miles Nonsterile [id number] - [id number] Implanted:Qty: 2 on 12/28/2023 by Tigre Lucia MD at [facility] N/A: Spine Lumbar Depuy Synthes Spine [id number] / / Depuy Synthes Spine Expedium Viper 2 5.5mm 480mm Straight Miles Spinal [id number] - [id number] Implanted:Qty: 3 on 12/28/2023 by Tigre Lucia MD at [facility] N/A: Spine Lumbar Depuy Synthes Spine [id number] / / Depuy Synthes Spine [place] Expedium 2 Spine Wire Fixation Cocr Titanium [id number] - [id number] Implanted:Qty: 2 on 12/28/2023 by Tigre Lucia MD at [facility] N/A: Spine Lumbar Depuy Synthes Spine [id number] / / Depuy Synthes Spine Expedium 5.5mm Open Closed Spine Connector Miles Titanium [id number] - [id number] Implanted:Qty: 2 on 12/28/2023 by Tigre Lucia MD at [facility] N/A: Spine Lumbar Depuy Synthes Spine [id number] / / Allosource Crushed Chip Frozen Graft 60ml Bone Cancellous [id number] - [id number] Implanted:Qty: 1 on 12/28/2023 by Tigre Lucia MD at [facility] N/A: Spine Lumbar Allosource 05/04/2028 [id number] / / [id number] Medtronic Inc Kit Graft Bone Sponge Xlg Infuse 8cc Granules [id number] - [id number] Implanted:Qty: 4 on 12/28/2023 by Tigre Lucia MD at [facility] N/A: Spine Lumbar Medtronic Inc [id number] 05/19/2025 [id number] / / [id number] Abyrx Hemasorb Filled Applicator Surgical Rachel-351 - [id number] Implanted:Qty: 1 on 12/28/2023 by Tigre Lucia MD at [facility] N/A: Spine Lumbar Abyrx 06/18/2026 [id number]-351 / / Depuy Synthes Spine Expedium 5mm 35mm Fix Spine Cortical Screw Bone Titanium 5.5mm [id number] - [id number] Implanted:Qty: 1 on 12/28/2023 by Tigre Lucia MD at [facility] N/A: Spine Lumbar Depuy Synthes Spine [id number] / / Depuy Synthes Spine Expedium 5mm 40mm Fix Spine Cortical Screw Bone Titanium 5.5mm [id number] - [id number] Implanted:Qty: 3 on 12/28/2023 by Tigre Lucia MD at [facility] N/A: Spine Lumbar Depuy Synthes Spine [id number] / / Depuy Synthes Spine Expedium 6mm 35mm Fix Spine Cortical Screw Bone Titanium 5.5mm [id number] - [id number] Implanted:Qty: 1 on 12/28/2023 by Tigre Lucia MD at [facility] N/A: Spine Lumbar Depuy Synthes Spine [id number] / / Depuy Synthes Spine Expedium 6mm 40mm Fix Spine Cortical Screw Bone Titanium 5.5mm [id number] - [id number] Implanted:Qty: 9 on 12/28/2023 by Tigre Lucia MD at [facility] N/A: Spine Lumbar Depuy Synthes Spine [id number] / / Abyrx Hemasorb Filled Applicator Surgical Rachel-351 - [id number] Implanted:Qty: 1 on 08/29/2024 by Tigre Lucia MD at [facility] N/A: Spine Lumbar Abyrx 11/18/2026 RACHEL-351 / / [id number] Medtronic Inc Kit Graft Bone Sponge Xlg Infuse 8cc Granules [id number] - [id number] Implanted:Qty: 4 on 08/29/2024 by Tigre Lucia MD at [facility] N/A: Spine Lumbar Medtronic Inc [id number] 01/17/2026 [id number] / / [id number] Allosource Graft Bone Canc 90ml Crushed Chip Frozen [id number] - [id number] Implanted:Qty: 1 on 08/29/2024 by Tigre Lucia MD at [facility] N/A: Spine Lumbar Allosource 05/14/2029 [id number] / / [id number] Allosource Graft Bone Canc 90ml Crushed Chip Frozen [id number] - [id number] Implanted:Qty: 1 on 08/29/2024 by Tiger Lucia MD at [facility] N/A: Spine Lumbar Allosource 03/10/2029 [id number] / / [id number] Depuy Synthes Spine [place] Expedium 6mm 50mm Fix [place] Spinal Titanium [id number] - [id number] Implanted:Qty: 2 on 08/29/2024 by Tigre Lucia MD at [facility] N/A: Spine Lumbar Depuy Synthes Spine [id number] / / Depuy Synthes Spine [place] Expedium 7mm 50mm Fix [place] Spinal Titanium [id number] - [id number] Implanted:Qty: 4 on 08/29/2024 by Tigre Lucia MD at [facility] N/A: Spine Lumbar Depuy Synthes Spine [id number] / / Depuy Synthes Spine [place] Expedium 7mm 45mm Fix [place] Spinal Titanium [id number] - [id number] Implanted:Qty: 2 on 08/29/2024 by Tigre Lucia MD at [facility] N/A: Spine Lumbar Depuy Synthes Spine [id number] / / Depuy Synthes Spine [place] Expedium 7mm 35mm Fix [place] Spinal Titanium [id number] - [id number] Implanted:Qty: 2 on 08/29/2024 by Tigre Lucia MD at [facility] N/A: Spine Lumbar Depuy Synthes Spine [id number] / / Depuy Synthes Spine [place] Expedium [place] Spinal Nut Lock Titanium [id number] - [id number] Implanted:Qty: 10 on 08/29/2024 by Tigre Lucia MD at [facility] N/A: Spine Lumbar Depuy Synthes Spine [id number] / / Depuy Synthes Spine Expedium 1 Inner Monoaxial Spine Screw Set Titanium [id number] - [id number] Implanted:Qty: 12 on 08/29/2024 by Tigre Lucia MD at [facility] N/A: Spine Lumbar Depuy Synthes Spine [id number] / / Depuy Synthes Spine Expedium Viper 2 5.5mm 480mm Straight Miles Spinal [id number] - [id number] Implanted:Qty: 3 on 08/29/2024 by Tigre Lucia MD at [facility] N/A: Spine Lumbar Depuy Synthes Spine [id number] / / Depuy Synthes Spine 5.5mm Offset Twister Wire Titanium Latex Free [id number] - [id number] Implanted:Qty: 4 on 08/29/2024 by Tigre Lucia MD at [facility] N/A: Spine Lumbar Depuy Synthes Spine [id number] / / Depuy Synthes Spine [place] Expedium Slot Spine Mini Left Offset Connector Miles Titanium [id number] - [id number] Implanted:Qty: 1 on 08/29/2024 by Tigre Lucia MD at [facility] N/A: Spine Lumbar Depuy Synthes Spine [id number] / / Depuy Synthes Spine [place] Expedium Slot Spine Mini Right Offset Connector Miles [id number] - [id number] Implanted:Qty: 1 on 08/29/2024 by Tigre Lucia MD at [facility] N/A: Spine Lumbar Depuy Synthes Spine [id number] / / Depuy Synthes Spine [place] Expedium 55mm Band Clamp Spinal Titanium [id number] - [id number] Implanted:Qty: 2 on 08/29/2024 by Tigre Lucia MD at [facility] N/A: Spine Lumbar Depuy Synthes Spine [id number] / / Depuy Synthes Spine [place] Expedium Slot Spine Downsize Connector Miles Titanium Ddv [id number] - [id number] Implanted:Qty: 2 on 08/29/2024 by Tigre Lucia MD at [facility] N/A: Spine Lumbar Depuy Synthes Spine [id number] / / Depuy Synthes Spine Lexa 5.5mm 60mm Transverse Body Spine Connector Miles Nonsterile [id number] - [id number] Implanted:Qty: 2 on 08/29/2024 by Tigre Lucia MD at [facility] N/A: Spine Lumbar Depuy Synthes Spine [id number] / / Depuy Synthes Spine Lexa 5.5mm 2 End To End Spine Connector Miles Nonsterile [id number] - [id number] Implanted:Qty: 2 on 08/29/2024 by Tigre Lucia MD at [facility] N/A: Spine Lumbar Depuy Synthes Spine [id number] / / Depuy Synthes Spine Expedium 5.5mm 55mm Line Prebent Miles Spinal Titanium Nonsterile [id number] - [id number] Implanted:Qty: 2 on 08/29/2024 by Tigre Lucia MD at [facility] N/A: Spine Lumbar Depuy Synthes Spine [id number] / / Depuy Synthes Spine [place] Expedium 2 Spine Wire Fixation Cocr Titanium [id number] - [id number] Implanted:Qty: 2 on 08/29/2024 by Tigre Lucia MD at [facility] N/A: Spine Lumbar Depuy Synthes Spine [id number] / / Depuy Synthes Spine Expedium 5.5mm Open Closed Spine Connector Miles Titanium [id number] - [id number] Implanted:Qty: 2 on 08/29/2024 by Tigre Lucia MD at [facility] N/A: Spine Lumbar Depuy Synthes Spine [id number] / / Depuy Synthes Spine Expedium 9mm 80mm Polyaxial Spine Pedicle Screw Bone Titanium 5.5 [id number] - [id number] Implanted:Qty: 2 on 08/29/2024 by Tigre Lucia MD at [facility] N/A: Spine Lumbar Depuy Synthes Spine [id number] / / Explanted Type Area Capsule Filling Machine Operator Device Identifier Shelf Expiration Date Model / Serial / Lot Depuy Synthes Spine [place] Expedium 6mm 45mm Fix [place] Spinal Titanium [id number] - [id number] Explanted:Qty : 1 on 08/29/2024 by Tigre Lucia MD at [facility] N/A: Spine Lumbar Depuy Synthes Spine [id number] / / Procedures Procedure Name Priority Date/Time Associated Diagnosis Comments XR SCOLIOSIS AP LAT Schedule Routine, Read Routine (OP Routine) 07/22/2025 9:10 AM CDT Idiopathic scoliosis in adult patient HEPATITIS PANEL, ACUTE Routine 08/18/2024 5:31 PM CDT Flatback syndrome Sagittal plane imbalance Hx of spinal fusion DIAGNOSTIC MAMMOGRAM BILATERAL W QUIQUE Routine 11/18/2014 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 Electronically signed by: Abe Zuniga M.D. Narrative 07/22/2025 10:00 AM CDT EXAMINATION: XR SCOLIOSIS AP AND LATERAL HISTORY: Back pain FINDINGS: AP and lateral standing images of the entire spine were performed with comparison made to 02/03/2025. Mild residual thoracolumbar scoliosis is unchanged. There is no coronal imbalance or pelvic obliquity. There is no sagittal imbalance. There is posterior instrumented fusion T4 through the sacrum and bilateral iliac bones bilaterally anteriorly L5 S1 L3 pedicle subtraction osteotomy and L3 vertebral height loss appears unchanged. Instrumentation is intact. Procedure Note Abe Zuniga MD PhD - 07/22/2025 EXAMINATION: XR SCOLIOSIS AP AND LATERAL HISTORY: Back pain FINDINGS: AP and lateral standing images of the entire spine were performed with comparison made to 02/03/2025. Mild residual thoracolumbar scoliosis is unchanged. There is no coronal imbalance or pelvic obliquity. There is no sagittal imbalance. There is posterior instrumented fusion T4 through the sacrum and bilateral iliac bones bilaterally anteriorly L5 S1 L3 pedicle subtraction osteotomy and L3 vertebral height loss appears unchanged. Instrumentation is intact. IMPRESSION: Unchanged posterior instrumented fusion T4 through the pelvis with combined anterior fusion L5-S1 and L3 pedicle subtraction osteotomy. Electronically signed by: Abe Zuniga M.D. Tigre Lucia MD IMG XR PROCEDURES Final Result * Hepatitis panel, acute Blood (08/18/2024 5:31 PM CDT) Hep A IgM Nonreactive Nonreactive Hep B core IgM Nonreactive Nonreactive [facility] H Hep C Ab Nonreactive Nonreactive [facility] Comment:Antibodies to HCV no t detected. Does NOT exclude the possibility of recent exposure to HCV. 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 This comparison was performed via Clinical Desktop. FINDINGS: Breasts are extremely dense. Parenchymal distribution is stable. There are no nodules or mass lesions, although breast density can limit assessment. There are no suspicious calcification clusters or distortion. IMPRESSION: CATEGORY 2-BENIGN. IMPRESSION OF OVERALL ASSESSMENT CATEGORY 2-BENIGN TECHNOLOGIST: JUWAN HANNAH TECHNOLOGIST MEDICAL IMAGING MOTORS AND GENERATORS INSPECTOR: PW2 TRANSCRIBE DATE/TIME: Nov 18 2014 4:18P RADIOLOGIST: JOSELIN LONG M.D. READ ON: Nov 18 2014 2:02P ORDERING DR: JANET BOURGEOIS M.D. THIS DOCUMENT HAS BEEN ELECTRONICALLY SIGNED BY: JOSELIN LONG M.D. ON: Nov 19 2014 10:39P Requesting Procedure Note Provider, MD Polo - 03/20/2017 Acc#: [id number] [id number] - Screening Mamm W Quique Bi DATE OF EXAM: Nov 18 2014 11:02AM DIAGNOSIS: SCREEN MAMMOGRAPHY NEC CLINICAL HISTORY: SCREENING RESULT: \ BREAST SCREENING, DIGITAL WITH CAD AND TOMOSYNTHESIS, BILATERAL COMPARISON: Comparison is made to 07/28/2011 screening mammographic exam performed at [facility]. This comparison was performed via Clinical Desktop. FINDINGS: Breasts are extremely dense. Parenchymal distribution is stable. There are no nodules or mass lesions, although breast density can limit assessment. There are no suspicious calcification clusters or distortion. IMPRESSION: CATEGORY 2-BENIGN. IMPRESSION OF OVERALL ASSESSMENT CATEGORY 2-BENIGN TECHNOLOGIST: JUWAN HANNAH, TECHNOLOGIST MEDICAL IMAGING MOTORS AND GENERATORS INSPECTOR: BETO TRANSCRIBE DATE/TIME: Nov 18 2014 4:18P [...] Most Recently Relevant to Health Maintenance Insurance [facility] Advance Directives For more information, please contact: [phone] * Full Code (Latest Code Status on File) Date Activated Date Inactivated Comments 08/29/2024 8:04 PM 09/05/2024 9:28 PM * Full Code Date Activated Date Inactivated Comments 08/28/2024 1:27 PM 08/29/2024 5:17 AM * Full Code Date Activated Date Inactivated Comments 12/28/2023 9:19 PM 01/04/2024 7:41 PM * Full Code Date Activated Date Inactivated Comments 12/27/2023 1:19 PM 12/27/2023 4:06 PM Care Teams Marketing Communications Coordinator Relationship Specialty [place] [address] [facility] [address] [place] [address] PCP - General Internal Medicine 08/27/17 [place] [address] [address] Rheumatology 08/09/17
--- OUTSIDE RECORDS SUMMARY | 2025-09-07 08:23 | XMS_ITS | Clinical Summary ---
Author Organization [facility] Address [address] [place] [address] Phone Care Team Providers Care Bonded Structures Repairer Name Role Phone Ann Marcum MD Primary Care Provider [phone] Allergies No known active allergies Medications cyclobenzaprine [...] 2:24 PM CDT Height 162.6 cm (5' 4) 08/07/2016 2:24 PM CDT Body Mass Index 28.15 08/07/2016 2:24 PM CDT Plan of Treatment Not on file Care Teams Bonded Structures Repairer Relationship Specialty Start Date End Date Ann Marcum MD [address] [employer] [place] [address] PCP - General Internal Medicine 08/07/16
== END 2025-09-07 08:04 | disposition home or self-care (01) ==
LOC: ANHSURGERY 08:06
PROVIDERS: PCP Nurse Practitioner; Visit Provider Surgery
DX: Z01.818 Encounter for other preprocedural examination (principal); K43.2 Incisional hernia without obstruction or gangrene
CPT/HCPCS: 36415; 86850; 86900; 86901

== ENCOUNTER 2025-11-02 08:18 | Outpatient (CLI) | payer OTHER, SELFPAY ==
[2025-11-02 11:21] LABS: Hematocrit 42.3 % (37.0-47.0); Hemoglobin 13.8 g/dL (12.0-15.0); Immature Granulocyte Percent A 0.2 % (0-0.5); Lymphocytes Absolute Auto 1.86 K/mm3 (0.9-3.2); Mean Corpuscular HGB Conc 32.6 g/dl (32-36); Mean Corpuscular Hemoglobin 28.3 pg (26-34); Mean Corpuscular Volume 86.7 fl (80-100); Nucleated Red Blood Cells Absolute Auto 0.000 K/mm3 (0.0-0.012); Nucleated Red Blood Cells Perc 0.0 % (0.0-0.2); Platelet Count Result 226 k/mm3 (150-375); Red Blood Count 4.88 M/mm3 (4.2-5.4); White Blood Count 5.0 K/mm3 (4.5-10.0)
[2025-11-02 11:25] LABS: INR 0.9; Prothrombin Time 12.2 Seconds (11.1-14.7)
[2025-11-02 11:26] LABS: Partial Thromboplastin Time 27.5 Seconds (22.3-36.8)
[2025-11-02 11:28] LABS: Alanine Aminotransferase 27 U/L (6-35); Albumin Level 4.5 g/dL (3.5-5.1); Alkaline Phosphatase 78 U/L (38-126); Anion Gap 5 mmol/L (4-12); Aspartate Amino Transferase 38 U/L (14-36); Bilirubin,Total 0.5 mg/dL (0.2-1.3); Blood Urea Nitrogen 19 mg/dL (7-17); Calcium 9.5 mg/dL (8.4-10.2); Carbon Dioxide 29 mmol/L (22-30); Chloride 105 mmol/L (98-107); Estimated Glomerular Filt Rate > 60; Glucose 96 mg/dL (65-110); Potassium 4.2 mmol/L (3.4-5.0); Sodium 139 mmol/L (137-145); Total Protein 7.9 g/dL (6.3-8.2)
== END 2025-11-02 08:19 | disposition home or self-care (01) ==
LOC: ANHGOSHLAB 08:19
PROVIDERS: PCP Nurse Practitioner
DX: Z01.812 Encounter for preprocedural laboratory examination (principal); E07.9 Disorder of thyroid, unspecified; I10 Essential (primary) hypertension
CPT/HCPCS: 36415; 80053; 85025; 85610; 85730